=== PATIENT | female | born 1985 | race Caucasian/White ===

== ENCOUNTER → 2020-09-21 21:50 | Outpatient (CLI) | payer MEDICAID, SELFPAY | PROVIDERS: Visit Provider Emergency Medicine | DX: Z20.822 Contact with and (suspected) exposure to COVID-19 (principal); R05 Cough | CPT/HCPCS: U0003 ==

== ENCOUNTER 2021-02-25 03:04 | Inpatient (IN) | payer MEDICAID, SELFPAY ==
[2021-02-25] VITALS (16 sets, daily range): BP systolic 85–148; BP diastolic 41–98; PULSE 53–117; RESP 16–20; TEMP 36.6–37.6; O2SAT 95–99; BMI 25.6; BMI 25.7
--- NOTE | 2021-02-25 02:53 | ECG_ITS ---
APPROVED REPORT Exam: Resting ECG HR:112 bpm ECG Measurements Heart Rate 112 AXES NH 112 P QRSd 76 QRS 60 QT 472 T 58 QTc 644 Conclusion Sinus tachycardia Nonspecific ST and T wave abnormality Abnormal ECG Electronically signed by : David Petersen MD 02/25/2021 17:34:52
--- NOTE | 2021-02-25 04:24 | HMH.EDNVD ---
ED Disposition Clinical Impression: Elevated liver enzymes, Hypokalemia Abdominal pain Qualifiers: Abdominal location: epigastric Qualified Code(s): R10.13 - Epigastric pain Pancreatitis Qualifiers: Chronicity: acute Pancreatitis type: unspecified pancreatitis type Acute pancreatitis complication: no infection or necrosis Qualified Code(s): K85.90 - Acute pancreatitis without necrosis or infection, unspecified Disposition: Admitted as Observation Condition on Discharge: Good Instructions: DI for Diarrhea and Traveler's Diarrhea -- Adult, DI for Diarrhea and Traveler's Diarrhea -- Child, DI for Nausea -- Adult, DI for Nausea -- Child Referrals: Provider,Referral, [Primary Care Provider] - - Critical Care Critical Care Time: No Attestation: On 02/25/21, the high probability of a clinically significant, sudden or life threatening deterioration of the following system(s) required my full and direct attention, intervention and personal management. The time I documented below is in addition to time spent performing reported procedures but includes the following listed in this critical care notation. Medical Decision Making - Medical Records Medical records reviewed: Yes: I reviewed the patient's medical records. - Jonny Inquiry Pt receiving controlled substance: No Vital Signs: 02/25/21 02:56 02/25/21 03:06 02/25/21 03:30 Temperature 98.4 F Temperature Source Oral Pulse Rate 109 H 53 L Pulse Rate [Left] 117 H Respiratory Rate 16 Blood Pressure 125/77 Blood Pressure [Right Arm] 141/98 H Blood Pressure Mean Blood Pressure Mean [Right Arm] 112 Blood Pressure Source [Right Arm] Automatic Cuff 02 Sat by Pulse Oximetry 99 95 96 Oxygen Delivery Method Room Air 02/25/21 04:00 02/25/21 04:15 02/25/21 04:30 Temperature Temperature Source Pulse Rate 96 H 100 H Pulse Rate [Left] Respiratory Rate Blood Pressure 119/81 124/83 Blood Pressure [Right Arm] Blood Pressure Mean 93 91 Blood Pressure Mean [Right Arm] Blood Pressure Source [Right Arm] 02 Sat by Pulse Oximetry 99 99 Oxygen Delivery Method - Lab Data Lab results reviewed: Yes: I reviewed the patient's lab results. Lab Results 02/25/21 03:02: WBC 8.6, RBC 4.68, Hgb 17.2 H, Hct 51.6 H, MCV 110.1 H, MCH 36.8 H, MCHC 33.4, RDW 16.4, Plt Count 345, MPV 8.3, Neut % (Auto) 64.8, Lymph % (Auto) 25.8, [place] % (Auto) 7.9, Eos % (Auto) 0.1, Baso % (Auto) 1.3, Neut # (Auto) 5.6, Lymph # (Auto) 2.2, [place] # (Auto) 0.7, Eos # (Auto) 0.0, Baso # (Auto) 0.1 02/25/21 03:02: Sodium 132 L, Potassium 2.7 L*, Chloride 75 L, Carbon Dioxide 35 H, Anion Gap 24.7 H, BUN 16, Creatinine 0.90, Estimated Creat Clear 88, Estimated GFR 72, Est GFR ( Amer) 87, Glucose 163 H, Calcium 9.8, Total Bilirubin 2.4 H, AST 266 H, ALT 119 H, Alkaline Phosphatase 174 H, Total Protein 8.4 H, Albumin 4.7, Globulin 3.7 H, Albumin/Globulin Ratio 1.3, Amylase 124 H, Lipase 617 H 02/25/21 03:35: ESR 19 02/25/21 03:35: C-Reactive Protein 1.6, Procalcitonin 0.205 02/25/21 04:40: Urine Color Dk yellow, Urine Appearance Clear, Urine pH 6.0, Ur Specific [place] >= 1.030, Urine Protein 2+, Urine Glucose (UA) Negative, Urine Ketones Trace, Urine Blood Negative, Urine Nitrate Positive, Urine Bilirubin Negative, Urine Urobilinogen 4.0, Ur Leukocyte Esterase Negative, Urine RBC 3-5, Urine WBC 3-5, Urine Bacteria 3+, Urine Mucus 2+ 02/25/21 05:00: SARS-CoV-2 (PCR) Not detected, Influenza A Untype (PCR) Not detected, Influenza Type B (PCR) Not detected Result diagrams: 02/25/21 03:02 02/25/21 03:02 Orders (Tests/Meds): ED MEDICATIONS Generic Name Dose Route Start Last Admin Trade Name Freq PRN Reason Stop Dose Admin Sodium Chloride 1,000 mls @ 999 mls/hr 02/25/21 03:30 02/25/21 03:27 Sod Chlor 0.9% 1000ml Bag IV 02/25/21 04:30 999 mls/hr .Q1H1M LANDON Administration Sodium Chloride 1,000 mls @ 999 mls/hr 02/25/21 05:30 02/25/21 05:28
[2021-02-25 04:27] LABS: Albumin Level 4.7 g/dl (3.5-5.0); Albumin/Globulin Ratio 1.3 (1.1-1.8); Alkaline Phosphatase 174 U/L (38-126); Amylase 124 U/L (30-110); Anion Gap 24.7 mEq/L (5-15); Aspartate Amino Transferase 266 U/L (14-36); Bilirubin,Total 2.4 mg/dl (0.2-1.3); Blood Urea Nitrogen 16 mg/dl (7-17); Calcium 9.8 mg/dl (8.4-10.2); Carbon Dioxide 35 mmol/L (22.0-30.0); Creatinine Clearance Estimated 88 mL/min (50-200); Estimated Glomerular Filt Rate 72 ml/min (>60); GFR (African American) 87 ML/MIN (>60); Globulin 3.7 g/dL (1.3-3.2); Glucose 163 mg/dl (74-100); Sodium 132 mmol/L (136-145); Total Protein,Serum 8.4 g/dl (6.3-8.2)
[2021-02-25 04:28] LABS: Alanine Aminotransferase 119 U/L (12-78)
[2021-02-25 04:30] LABS: Lipase 617 U/L (23-300); Potassium 2.7 mmoL/L (3.5-5.1)
[2021-02-25 04:31] LABS: Chloride 75 mmol/L (98-107)
[2021-02-25 04:32] LABS: Basophils # 0.1 K/mm3 (0-0.2); Basophils % 1.3 % (0.1-2.0); Eosinophils % 0.1 % (0.1-12.0); Hematocrit 51.6 % (37.0-47.0); Hemoglobin 17.2 g/dL (12.2-16.2); Lymphocytes # 2.2 K/mm3 (0.7-4.5); Lymphocytes % 25.8 % (10-50); Mean Corpuscular HGB Conc 33.4 g/dL (31.8-35.4); Mean Corpuscular Hemoglobin 36.8 pg (27.0-31.2); Mean Corpuscular Volume 110.1 fl (81-99); Mean Platelet Volume 8.3 fl (7.4-10.4); Monocytes # 0.7 K/mm3 (0.1-1.0); Monocytes % 7.9 % (1.7-9.3); Neutrophils # 5.6 K/mm3 (1.8-7.8); Neutrophils % 64.8 % (37.0-80.0); Platelet Count 345 K/mm3 (142-424); Red Blood Count 4.68 M/mm3 (4.20-5.40); Red Cell Distribution Width 16.4 % (11.5-17.5); White Blood Count 8.6 K/mm3 (4.8-10.8)
--- NOTE | 2021-02-25 04:34 | PC.NURSE ---
Dr. Mohr notified of critical Potassium, Chloride, and Lipase.
--- NOTE | 2021-02-25 04:35 | CT_ITS ---
PROCEDURE INFORMATION: Exam: CT Abdomen And Pelvis With Contrast Exam date and time: 02/25/2021 4:35 AM Age: 35 years old Clinical indication: Nausea and vomiting; Abdominal pain; Prior surgery; Surgery type: Tubal; Patient HX: Generalized abd pain with n/v TECHNIQUE: Imaging protocol: Computed tomography of the abdomen and pelvis with contrast. Radiation optimization: All CT scans at this facility use at least one of these dose optimization techniques: automated exposure control; mA and/or kV adjustment per patient size (includes targeted exams where dose is matched to clinical indication); or iterative reconstruction. Contrast material: ISOVUE; Contrast volume: 75 ml; Contrast route: IV; COMPARISON: No relevant prior studies available. FINDINGS: Liver: Fatty infiltration. Gallbladder and bile ducts: Gallbladder distention. No significant ductal dilation. Pancreas: Unremarkable. No ductal dilation. Spleen: No splenomegaly. Adrenal glands: No mass. Kidneys and ureters: Unremarkable. No significant hydronephrosis. Stomach and bowel: No definite mural thickening. No obstruction. Appendix: Normal caliber. No inflammation. Intraperitoneal space: No significant fluid collection. No definite free air. Vasculature: Unremarkable. No aneurysm. Lymph nodes: No pathologically enlarged lymph nodes. Urinary bladder: Borderline bladder wall thickening, up to 4-5 mm. Incomplete distention, limiting evaluation. Reproductive: RIGHT tubal ligation clip. Displaced LEFT tubal ligation clip. Probable 1.4 cm RIGHT ovarian follicle. Bones/joints: Healing RIGHT rib fracture. Soft tissues: Unremarkable. IMPRESSION: 1. Cystitis vs underdistention. Correlate with urinalysis. 2. Gallbladder distention. Consider ultrasound.
[2021-02-25 04:51] LABS: C-Reactive Protein 1.6 mg/L (0-4)
[2021-02-25 04:52] LABS: Microscopic, Urine URINE MICROSCOPIC (MICROSCOPIC)
[2021-02-25 05:01] LABS: Erythrocyte Sedimentation Rate 19 mm/hr (0-20)
[2021-02-25 05:04] LABS: Appearance,Urine CLEAR (Clear); Blood, Urine Negative (Negative); Color,Urine DK YELLOW (Yellow); Glucose,Urine (UA) Negative (Negative); Ketones,Urine TRACE (Negative); Leukocyte Esterase,Urine Negative (Negative); Nitrate,Urine POSITIVE (Negative); Protein,Urine 2+ (Negative); Specific Gravity, Urine >= 1.030 (1.005-1.030)
[2021-02-25 05:05] LABS: Procalcitonin 0.205 ng/mL (0.0-2.0)
[2021-02-25 05:11] LABS: Bilirubin,Urine Negative (Negative)
[2021-02-25 05:15] LABS: Coronavirus 19, PCR Not Detected (NotDetected); Influenza A, PCR Not Detected (NotDetected); Influenza B, PCR Not Detected (NotDetected)
[2021-02-25 05:19] LABS: Bacteria,Urine 3+ /lpf; Mucus,Urine 2+ /lpf
--- NOTE | 2021-02-25 06:53 | XR_ITS ---
PROCEDURE INFORMATION: Exam: XR Chest Exam date and time: 02/25/2021 6:53 AM Age: 35 years old Clinical indication: Cough; Additional info: Baseline TECHNIQUE: Imaging protocol: XR of the chest. Views: 2 views. COMPARISON: CT ABDOMEN PELVIS W CON 02/25/2021 4:48 AM FINDINGS: Lungs: Unremarkable. No consolidation. Pleural spaces: Unremarkable. No pleural effusion. No pneumothorax. Heart/Mediastinum: Unremarkable. No cardiomegaly. Bones/joints: Unremarkable. IMPRESSION: No acute findings.
[2021-02-25 07:26] LABS: Lactic Acid 3.7 mmol/L (0.7-2.1)
--- NOTE | 2021-02-25 08:06 | HMH.PHAVTE ---
[facility] Pharmacy VTE Monitoring - Patient Demographics Admission date: 02/25/21 Report Date: 02/25/21 Time: 08:06 Allergies/Adverse Reactions: Patient Allergies BEE VENOM Allergy (Unknown, Uncoded 05/22/17 15:28) Height: 1.57 m Weight: 63.503 kg Patient Problems: Current Active Problems Abdominal pain (Acute) Elevated liver enzymes (Acute) Pancreatitis (Acute) Hypokalemia (Acute) - VTE Risk Labs: VTE Related Lab Results Hgb 17.2 g/dL (12.2-16.2) H 02/25/21 03:02 Hct 51.6 % (37.0-47.0) H 02/25/21 03:02 Plt Count 345 K/mm3 (142-424) 02/25/21 03:02 BUN 16 mg/dl (7-17) 02/25/21 03:02 Creatinine 0.90 mg/dl (0.52-1.04) 02/25/21 03:02 Estimated Creat Clear 88 mL/min (50-200) 02/25/21 03:02 Clinical Trial Participant: No - Prophylaxis VTE Prophylaxis Ordered?: Yes Types of VTE Prophylaxis: TEDS Knee High
--- NOTE | 2021-02-25 08:07 | PC.NURSE ---
Called pt report to chantel on med/surg
--- NOTE | 2021-02-25 09:08 | PC.NURSE ---
pt to ultrasound per wheelchair
--- NOTE | 2021-02-25 09:12 | HMH.HP ---
*Admission Date: 02/25/21 *Chief complaint: Nausea, Vomiting Diarrhea *History of present illness: 35-year-old female patient presented to the [facility] emergency department with complaints of off and on right upper quadrant/epigastric pain for 2 weeks and increasing pain in the last 3 days to intolerable with increased nausea/vomiting/diarrhea. She rates her pain at 8 out of 10 and reports that it is stabbing and twisting. She reports pain will occur both before and after meals and reports sometimes she will walk for 20 minutes and pain will subside. Patient reports she is unable to keep anything down neither solids nor liquids. She reports she does have a primary care provider in [facility] and has not had an appointment herself in several years. General surgery consulted White blood cell count is normal, hemoglobin hematocrit stable Potassium 2.7 and will be replaced, amylase 124 and lipase 617 Urinalysis reveals bacteria 3+, protein 2+, and leukocytes negative Urine culture and blood cultures x2 pending 02/25/21 Abd/Pelvic CT: FINDINGS: Liver: Fatty infiltration. Gallbladder and bile ducts: Gallbladder distention. No significant ductal dilation. Pancreas: Unremarkable. No ductal dilation. Spleen: No splenomegaly. Adrenal glands: No mass. Kidneys and ureters: Unremarkable. No significant hydronephrosis. Stomach and bowel: No definite mural thickening. No obstruction. Appendix: Normal caliber. No inflammation. Intraperitoneal space: No significant fluid collection. No definite free air. Vasculature: Unremarkable. No aneurysm. Lymph nodes: No pathologically enlarged lymph nodes. Urinary bladder: Borderline bladder wall thickening, up to 4-5 mm. Incomplete distention, limiting evaluation. Reproductive: RIGHT tubal ligation clip. Displaced LEFT tubal ligation clip. Probable 1.4 cm RIGHT ovarian follicle. Bones/joints: Healing RIGHT rib fracture. Soft tissues: Unremarkable. IMPRESSION: 1. Cystitis vs underdistention. Correlate with urinalysis. 2. Gallbladder distention. Consider ultrasound. Electronically signed by Khris Finnegan MD 02/25/21 CXR: IMPRESSION: No acute findings. Electronically signed by Anthony Maldonado MD [facility] History I have reviewed the patient's past medical history: Yes *Have you ever received a pneumonia vaccine?: No *Have you received a flu vaccine this season?: No - *Social History Last grade of school completed: High school graduate Smoking Status: Current every day smoker Alcohol Intake: current Alcohol Intake Frequency:: a few times a month Substance Use Type: denies use *Occupational Status:: unemployed *Travel in the last 8 weeks: None Family Hx:: Unable to obtain Review of Systems - Review of Systems Review of systems:: pertinent systems reviewed and negative unless documented below - Constitutional Reports fatigue, Reports lack of energy - Eyes Denies change in vision, Denies double vision - ENT Denies abnormal hearing, Denies dizziness - *Cardiovascular Denies chest pain, Denies shortness of breath - *Respiratory Denies chest congestion, Denies cough - *Gastrointestinal Reports abdominal pain, Reports change in bowel habits, Reports change in stools, Reports loose stools, Reports nausea, Reports vomiting, Denies bright, red blood in stools, Denies black, tarry stools - *Musculoskeletal Denies joint pain, Denies muscle weakness - Integumentary/Breasts Denies bleeding lesions, Denies yellowing of the skin - *Neurologic Denies localized weakness, Denies loss of vision, Denies seizure-like activity - Psychiatric Denies lack of enjoyment, Denies difficulty concentrating - Endocrine Denies cold intolerance, Denies excessive sweating - Hematologic/Lymphatic Denies easy bleeding - Allergic/Immunologic Denies GI upset with certain foods, Denies tongue swelling Meds Home Medications Medica
--- NOTE | 2021-02-25 10:46 | PC.NURSE ---
Contacted pre-op to let Dr Madera know about the consult on this pt.
[2021-02-25 11:11] LABS: Reflex Lactic Add Lactic Reflex
[2021-02-25 12:18] LABS: Lactic Acid Follow Up (RFLX 1) 2.2 mmol/L (0.7-2.1)
[2021-02-25 13:58] LABS: Reflex Lactic (2 hrs) Add Lactic Reflex
--- NOTE | 2021-02-25 16:03 | PC.NURSE ---
Report given on pt to CEDRIC Nur. Called and spoke with Dr. Abebe earlier this shift in RE to pt needing an Antibiotic, he ordered invanz. He also ordered a 500 cc bolus in RE to hypotension. Pt's BP did improve and was 90/50 manually. Gen surgery has been notified of consult.
--- NOTE | 2021-02-25 16:30 | PC.NURSE ---
Dr. Madera here to see pt
--- NOTE | 2021-02-25 17:22 | HMH.GSCON ---
*Admission Date: 02/25/21 *Reason for consult:: Gallbladder distention *History of present illness: This is a 35-year-old female seen in consultation from the service of Drs. Mohr and Mis for evaluation of possible gallbladder disease. Although her history seems varied as reported to different providers, she currently states that she has had fairly severe nausea and vomiting for about 2 months. She has also had fairly severe abdominal pain and what she also describes as tingling and numbness of the abdominal wall. She seemingly gets nauseous with any food or liquid but does not have any increased pain with food intake. She states that her pain is pretty much there all the time . No jaundice. Fevers are questionable. Forwarded from admission H&P: 35-year-old female patient presented to the [facility] emergency department with complaints of off and on right upper quadrant/epigastric pain for 2 weeks and increasing pain in the last 3 days to intolerable with increased nausea/vomiting/diarrhea. She rates her pain at 8 out of 10 and reports that it is stabbing and twisting. She reports pain will occur both before and after meals and reports sometimes she will walk for 20 minutes and pain will subside. Patient reports she is unable to keep anything down neither solids nor liquids. She reports she does have a primary care provider in [facility] and has not had an appointment herself in several years. General surgery consulted Review of Systems - Constitutional Denies body ache(s) - Eyes Denies change in vision - ENT Denies difficulty swallowing - *Cardiovascular Reports chest pain - *Respiratory Denies cough - *Gastrointestinal Reports abdominal pain, Reports nausea, Reports vomiting - *Genitourinary Denies blood in urine - *Musculoskeletal Reports numbness, Reports tingling Comments: She describes tingling/numbness of the abdominal wall - *Neurologic Denies abnormal hearing, Denies dizziness, Denies localized weakness, Denies loss of vision, Denies seizure-like activity - Psychiatric Reports anxiety - Hematologic/Lymphatic Denies easy bleeding [facility] History Medical History: Denies:: Diabetes Mellitus Type 1, Diabetes Mellitus Type 2 *Have you ever received a pneumonia vaccine?: No *Have you received a flu vaccine this season?: No - *Social History Last grade of school completed: High school graduate Smoking Status: Current every day smoker Alcohol Intake: current Alcohol Intake Frequency:: a few times a month Substance Use Type: denies use *Occupational Status:: unemployed *Travel in the last 8 weeks: None Family Hx:: Unable to obtain Meds Home Medications Medication Instructions Recorded Confirmed Type No Known Home Medications 02/25/21 02/25/21 History Allergies Allergy/AdvReac Type Severity Reaction Status Date / Time BEE VENOM Allergy Unknown Uncoded 05/22/17 15:28 Exam Vital signs and Labs for Last 24 Hours: Temp Pulse Resp BP Pulse Ox 98.6 F 85 18 112/57 L 96 02/25/21 16:00 02/25/21 16:00 02/25/21 16:00 02/25/21 16:00 02/25/21 16:00 Laboratory Results - last 24 hr 02/25/21 03:02: WBC 8.6, RBC 4.68, Hgb 17.2 H, Hct 51.6 H, MCV 110.1 H, MCH 36.8 H, MCHC 33.4, RDW 16.4, Plt Count 345, MPV 8.3, Neut % (Auto) 64.8, Lymph % (Auto) 25.8, [place] % (Auto) 7.9, Eos % (Auto) 0.1, Baso % (Auto) 1.3, Neut # (Auto) 5.6, Lymph # (Auto) 2.2, [place] # (Auto) 0.7, Eos # (Auto) 0.0, Baso # (Auto) 0.1 02/25/21 03:02: Sodium 132 L, Potassium 2.7 L*, Chloride 75 L, Carbon Dioxide 35 H, Anion Gap 24.7 H, BUN 16, Creatinine 0.90, Estimated Creat Clear 88, Estimated GFR 72, Est GFR ( Amer) 87, Glucose 163 H, Calcium 9.8, Total Bilirubin 2.4 H, AST 266 H, ALT 119 H, Alkaline Phosphatase 174 H, Total Protein 8.4 H, Albumin 4.7, Globulin 3.7 H, Albumin/Globulin Ratio 1.3, Amylase 124 H, Lipase 617 H 02/25/21 03:35: ESR 19 02/25/21 03:35: C-Reactive Protei
--- NOTE | 2021-02-25 18:00 | PC.NURSE ---
Phone order received from Dr. Madera for Protonix 40mg IV Bid. R/V and faxed.
[2021-02-25 18:21] LABS: Potassium 3.2 mmoL/L (3.5-5.1)
--- NOTE | 2021-02-26 03:48 | PC.NURSE ---
Patient is A&Ox4. Patient bowel sounds are active in all quadrants. Patient states that she had a small BM earlier today (02/25). Abdomen is soft, flat and tender upon palpation. IV is patent. No acute changes noted and patient has rested well. VSS, call light within reach, will continue to monitor.
[2021-02-26 04:00] VITALS: BP 99/64; PULSE 75; RESP 18; TEMP 36.9; O2SAT 94
[2021-02-26 08:00] VITALS: BP 134/84; PULSE 71; RESP 18; TEMP 36.8; O2SAT 98
[2021-02-26 08:17] LABS: Basophils % 0.5 % (0.1-2.0); Eosinophils % 0.9 % (0.1-12.0); Hematocrit 33.9 % (37.0-47.0); Hemoglobin 11.1 g/dL (12.2-16.2); Lymphocytes # 1.2 K/mm3 (0.7-4.5); Lymphocytes % 41.1 % (10-50); Mean Corpuscular HGB Conc 32.9 g/dL (31.8-35.4); Mean Corpuscular Hemoglobin 36.4 pg (27.0-31.2); Mean Corpuscular Volume 110.6 fl (81-99); Mean Platelet Volume 7.8 fl (7.4-10.4); Monocytes # 0.3 K/mm3 (0.1-1.0); Monocytes % 8.8 % (1.7-9.3); Neutrophils # 1.4 K/mm3 (1.8-7.8); Neutrophils % 48.7 % (37.0-80.0); Platelet Count 152 K/mm3 (142-424); Red Blood Count 3.06 M/mm3 (4.20-5.40); Red Cell Distribution Width 16.3 % (11.5-17.5); White Blood Count 2.9 K/mm3 (4.8-10.8)
[2021-02-26 08:25] LABS: Alanine Aminotransferase 70 U/L (12-78); Albumin Level 2.8 g/dl (3.5-5.0); Alkaline Phosphatase 94 U/L (38-126); Amylase 104 U/L (30-110); Anion Gap 9.3 mEq/L (5-15); Aspartate Amino Transferase 182 U/L (14-36); Bilirubin,Total 2.3 mg/dl (0.2-1.3); Blood Urea Nitrogen 9 mg/dl (7-17); Carbon Dioxide 30 mmol/L (22.0-30.0); Chloride 101 mmol/L (98-107); Chol/HDL Ratio 3.5 (1-3.5); Cholesterol 120 mg/dl (140-200); Creatinine Clearance Estimated 99 mL/min (50-200); Estimated Glomerular Filt Rate 82 ml/min (>60); GFR (African American) 99 ML/MIN (>60); Globulin 2.7 g/dL (1.3-3.2); Glucose 111 mg/dl (74-100); HDL Cholesterol 34 mg/dl (40-60); Potassium 3.3 mmoL/L (3.5-5.1); Sodium 137 mmol/L (136-145); Total Protein,Serum 5.5 g/dl (6.3-8.2); Triglycerides 73 mg/dl (30-150); VLDL Cholesterol 15 mg/dL (0-40)
[2021-02-26 08:26] LABS: Lipase 958 U/L (23-300)
[2021-02-26 08:36] LABS: Direct LDL Cholesterol 69.86 mg/dL (100-129)
[2021-02-26 09:19] LABS: Hep A Ab, IgM Negative (Negative); Hepatitis B Core Antibody IgM Negative (Negative); Hepatitis B Surface Antigen Negative (Negative); Hepatitis C Antibody >11.0 s/co ratio (0.0-0.9)
--- NOTE | 2021-02-26 09:30 | HMH.ACPN2 ---
Internal Medicine - PN: Subj *Date: 02/26/21 *Time: 09:30 Interval history: looks better this am - hungry - still with nausea Exam Vital signs and Labs for Last 24 Hours: Temp Pulse Resp BP Pulse Ox 98.3 F 71 18 134/84 98 02/26/21 08:00 02/26/21 08:00 02/26/21 08:00 02/26/21 08:00 02/26/21 08:00 Laboratory Results - last 24 hr 02/25/21 03:00: Hepatitis A IgM Ab Negative, Hep Bs Antigen Negative, Hep B Core IgM Ab Negative, Hepatitis C Antibody >11.0 H 02/25/21 11:26: Lactate 2.2 H 02/25/21 14:25: Lactate 1.0 02/25/21 18:10: Potassium 3.2 L 02/26/21 07:52: WBC 2.9 L D, RBC 3.06 L D, Hgb 11.1 L, Hct 33.9 L, MCV 110.6 H, MCH 36.4 H, MCHC 32.9, RDW 16.3, Plt Count 152 D, MPV 7.8, Neut % (Auto) 48.7, Lymph % (Auto) 41.1, [place] % (Auto) 8.8, Eos % (Auto) 0.9, Baso % (Auto) 0.5, Neut # (Auto) 1.4 L, Lymph # (Auto) 1.2, [place] # (Auto) 0.3, Eos # (Auto) 0.0, Baso # (Auto) 0.0 02/26/21 07:52: Sodium 137, Potassium 3.3 L, Chloride 101, Carbon Dioxide 30, Anion Gap 9.3, BUN 9 D, Creatinine 0.80, Estimated Creat Clear 99, Estimated GFR 82, Est GFR ( Amer) 99, Glucose 111 H, Calcium 8.0 L, Total Bilirubin 2.3 H, AST 182 H D, ALT 70 D, Alkaline Phosphatase 94, Total Protein 5.5 L D, Albumin 2.8 L D, Globulin 2.7, Albumin/Globulin Ratio 1.0 L, Triglycerides 73, Cholesterol 120 L, LDL Cholesterol Direct 69.86 L, VLDL Cholesterol 15, HDL Cholesterol 34 L, Cholesterol/HDL Ratio 3.5, Amylase 104, Lipase 958 H I & O for Last 24 hours: Intake & Output 02/23/21 02/24/21 02/25/21 02/26/21 11:59 11:59 11:59 11:59 Intake Total 2487 / 2487 Balance 2487 / 2487 Weight 140 lb Microbiology Reports for the Last 24 Hours: Microbiology 02/25/21 04:40 Urine,Clean Catch Urine Culture - Preliminary - Constitutional no acute distress - *Routine HEENT Exam Head: Present: normocephalic Eye: Present: EOMI, PERRL. Absent: scleral injection ENT: Present: mucous membranes dry - *Routine Neck Exam Absent: JVD - *Routine Respiratory Exam Present: CTA bilaterally - *Routine Cardiovascular Exam Present: RRR - *Routine Abdominal Exam Present: soft - *Routine Extremities Exam Present: pulses intact - *Routine Skin Exam Present: intact - *Routine Neurological Exam Present: alert, oriented X3, CN II-XII intact Assessment and Plan (1) Abdominal pain Status: Acute Qualifiers: Abdominal location: epigastric Qualified Code(s): R10.13 - Epigastric pain Category: Medical Code(s): R10.9 - Unspecified abdominal pain (2) Elevated liver enzymes Status: Acute Category: Medical Code(s): R74.8 - Abnormal levels of other serum enzymes (3) Hypokalemia Status: Acute Category: Medical Code(s): E87.6 - Hypokalemia (4) Proteinuria Status: Acute Category: Medical Code(s): R80.9 - Proteinuria, unspecified (5) Pancreatitis Status: Acute Qualifiers: Chronicity: acute Pancreatitis type: unspecified pancreatitis type Acute pancreatitis complication: no infection or necrosis Qualified Code(s): K85.90 - Acute pancreatitis without necrosis or infection, unspecified Category: Medical Code(s): K85.90 - Acute pancreatitis without necrosis or infection, unspecified (6) Nausea and vomiting Status: Acute Category: Medical Code(s): R11.2 - Nausea with vomiting, unspecified (7) Hepatitis C Status: Acute Qualifiers: Viral hepatitis chronicity: unspecified Hepatic coma status: without hepatic coma Qualified Code(s): B19.20 - Unspecified viral hepatitis C without hepatic coma Category: Medical Code(s): B19.20 - Unspecified viral hepatitis C without hepatic coma
--- NOTE | 2021-02-26 09:44 | P.PN_ITS ---
Subjective Narrative: She states that she feels a little better overall . She is asking for something to eat and drink . Although she states that she still has some nausea, she believes that she tolerated liquids okay yesterday for the most part . Progress Note: A&P (1) Abdominal pain Status: Acute (2) Elevated liver enzymes Status: Acute (3) Hypokalemia Status: Acute (4) Proteinuria Status: Acute (5) Pancreatitis Status: Acute (6) Nausea and vomiting Status: Acute (7) Hepatitis C Status: Acute Assessment and Plan for All Diagnoses:: Overall, she has shown some improvement. Her symptomatology is likely at least to some degree multifactorial. She may ultimately require cholecystectomy; however, this does not appear to be an urgent requirement. Gastroenterology evaluation prior to ongoing discussion with regard to surgical intervention is likely beneficial. Low-fat diet ordered Serial abdominal exams Close ongoing follow-up Exam Vital signs and Labs for Last 24 Hours: Temp Pulse Resp BP Pulse Ox 98.3 F 71 18 134/84 98 02/26/21 08:00 02/26/21 08:00 02/26/21 08:00 02/26/21 08:00 02/26/21 08:00 Laboratory Results - last 24 hr 02/25/21 03:00: Hepatitis A IgM Ab Negative, Hep Bs Antigen Negative, Hep B Core IgM Ab Negative, Hepatitis C Antibody >11.0 H 02/25/21 11:26: Lactate 2.2 H 02/25/21 14:25: Lactate 1.0 02/25/21 18:10: Potassium 3.2 L 02/26/21 07:52: WBC 2.9 L D, RBC 3.06 L D, Hgb 11.1 L, Hct 33.9 L, MCV 110.6 H, MCH 36.4 H, MCHC 32.9, RDW 16.3, Plt Count 152 D, MPV 7.8, Neut % (Auto) 48.7, Lymph % (Auto) 41.1, [place] % (Auto) 8.8, Eos % (Auto) 0.9, Baso % (Auto) 0.5, Neut # (Auto) 1.4 L, Lymph # (Auto) 1.2, [place] # (Auto) 0.3, Eos # (Auto) 0.0, Baso # (Auto) 0.0 02/26/21 07:52: Sodium 137, Potassium 3.3 L, Chloride 101, Carbon Dioxide 30, Anion Gap 9.3, BUN 9 D, Creatinine 0.80, Estimated Creat Clear 99, Estimated GFR 82, Est GFR ( Amer) 99, Glucose 111 H, Calcium 8.0 L, Total Bilirubin 2.3 H, AST 182 H D, ALT 70 D, Alkaline Phosphatase 94, Total Protein 5.5 L D, Albumin 2.8 L D, Globulin 2.7, Albumin/Globulin Ratio 1.0 L, Triglycerides 73, Cholesterol 120 L, LDL Cholesterol Direct 69.86 L, VLDL Cholesterol 15, HDL Cholesterol 34 L, Cholesterol/HDL Ratio 3.5, Amylase 104, Lipase 958 H I & O for Last 24 hours: Intake & Output 02/23/21 02/24/21 02/25/21 02/26/21 11:59 11:59 11:59 11:59 Intake Total 2487 / 2487 Balance 2487 / 2487 Weight 140 lb Microbiology Reports for the Last 24 Hours: Microbiology 02/25/21 04:40 Urine,Clean Catch Urine Culture - Preliminary - Constitutional no acute distress - *Routine Respiratory Exam Absent: respiratory distress - *Routine Cardiovascular Exam Present: RRR - *Routine Abdominal Exam Present: tenderness
[2021-02-26 15:41] VITALS: BP 116/73; PULSE 74; RESP 14; TEMP 37.3; O2SAT 95
[2021-02-26 19:55] VITALS: BP 104/73; PULSE 69; RESP 16; TEMP 36.7; O2SAT 100
--- NOTE | 2021-02-26 20:16 | PC.NURSE ---
Pt did state this am she had episode of emesis. Meds per mar. No acute changes this evening. VSS. CB in reach
--- NOTE | 2021-02-27 02:36 | PC.NURSE ---
Patient is A&Ox4. Patient has rested well this shift. Patient's bowel sounds are active in all quadrants. Abdomen is soft, flat and tender upon palpation of the upper quadrants. VSS, call light within reach, will continue to monitor.
[2021-02-27 05:04] VITALS: BP 110/64; PULSE 64; RESP 16; TEMP 36.6; O2SAT 96
[2021-02-27 07:57] LABS: Amylase 79 U/L (30-110); Lipase 516 U/L (23-300)
[2021-02-27 08:00] VITALS: BP 95/57; PULSE 69; RESP 14; TEMP 36.9; O2SAT 98; O2SAT 99
--- NOTE | 2021-02-27 09:39 | HMH.ACPN2 ---
Internal Medicine - PN: Subj *Date: 02/28/21 *Time: 06:44 Interval history: not feeling well - has abd pain with nausea - lipase improved - gram neg rods in urine Exam Vital signs and Labs for Last 24 Hours: Temp Pulse Resp BP Pulse Ox 98 F 64 16 110/64 96 02/27/21 05:04 02/27/21 05:04 02/27/21 05:04 02/27/21 05:04 02/27/21 05:04 Laboratory Results - last 24 hr 02/25/21 04:40: Urine Color Dk yellow, Urine Appearance Clear, Urine pH 6.0, Ur Specific [place] >= 1.030, Urine Protein 2+, Urine Glucose (UA) Negative, Urine Ketones Trace, Urine Blood Negative, Urine Nitrate Positive, Urine Bilirubin Negative, Urine Urobilinogen 4.0, Ur Leukocyte Esterase Negative, Urine RBC 3-5, Urine WBC 3-5, Urine Bacteria 3+, Urine Mucus 2+ 02/27/21 07:25: Amylase 79 D, Lipase 516 H I & O for Last 24 hours: Intake & Output 02/24/21 02/25/21 02/26/21 02/27/21 11:59 11:59 11:59 11:59 Intake Total 2487 / 2487 470 / 470 Balance 2487 / 2487 470 / 470 Weight 140 lb Microbiology Reports for the Last 24 Hours: Microbiology 02/25/21 04:40 Urine,Clean Catch Urine Culture - Preliminary Gram Negative Rods Gram Negative Rods#2 02/25/21 06:52 Blood Blood Culture - Preliminary NO GROWTH AFTER 48 HOURS 02/25/21 06:52 Blood Blood Culture - Preliminary NO GROWTH AFTER 48 HOURS - Constitutional no acute distress - *Routine HEENT Exam Head: Present: normocephalic Eye: Present: EOMI, PERRL ENT: Present: mucous membranes dry - *Routine Neck Exam Present: supple. Absent: JVD - *Routine Respiratory Exam Present: decreased breath sounds - *Routine Cardiovascular Exam Present: RRR - *Routine Abdominal Exam Present: soft, tenderness - *Routine Extremities Exam Absent: calf tenderness - *Routine Skin Exam Present: intact - *Routine Neurological Exam Present: alert, CN II-XII intact - Routine Psychiatric Exam Present: cooperative Assessment and Plan (1) Abdominal pain Status: Acute Qualifiers: Abdominal location: epigastric Qualified Code(s): R10.13 - Epigastric pain Category: Medical Code(s): R10.9 - Unspecified abdominal pain (2) Elevated liver enzymes Status: Acute Category: Medical Code(s): R74.8 - Abnormal levels of other serum enzymes (3) Hypokalemia Status: Acute Category: Medical Code(s): E87.6 - Hypokalemia (4) Proteinuria Status: Acute Category: Medical Code(s): R80.9 - Proteinuria, unspecified (5) Pancreatitis Status: Acute Qualifiers: Chronicity: acute Pancreatitis type: unspecified pancreatitis type Acute pancreatitis complication: no infection or necrosis Qualified Code(s): K85.90 - Acute pancreatitis without necrosis or infection, unspecified Category: Medical Code(s): K85.90 - Acute pancreatitis without necrosis or infection, unspecified (6) Nausea and vomiting Status: Acute Category: Medical Code(s): R11.2 - Nausea with vomiting, unspecified (7) Hepatitis C Status: Acute Qualifiers: Viral hepatitis chronicity: unspecified Hepatic coma status: without hepatic coma Qualified Code(s): B19.20 - Unspecified viral hepatitis C without hepatic coma Category: Medical Code(s): B19.20 - Unspecified viral hepatitis C without hepatic coma
[2021-02-27 10:28] LABS: Basophils % 0.9 % (0.1-2.0); Eosinophils # 0.1 K/mm3 (0.0-0.4); Eosinophils % 1.1 % (0.1-12.0); Hematocrit 40.3 % (37.0-47.0); Hemoglobin 13.2 g/dL (12.2-16.2); Lymphocytes # 1.1 K/mm3 (0.7-4.5); Lymphocytes % 25.7 % (10-50); Mean Corpuscular HGB Conc 32.7 g/dL (31.8-35.4); Mean Corpuscular Hemoglobin 36.6 pg (27.0-31.2); Mean Corpuscular Volume 111.9 fl (81-99); Mean Platelet Volume 8.7 fl (7.4-10.4); Monocytes # 0.2 K/mm3 (0.1-1.0); Monocytes % 5.3 % (1.7-9.3); Neutrophils % 66.9 % (37.0-80.0); Platelet Count 197 K/mm3 (142-424); Red Cell Distribution Width 16.3 % (11.5-17.5); White Blood Count 4.4 K/mm3 (4.8-10.8)
[2021-02-27 10:38] LABS: Chloride 100 mmol/L (98-107); Sodium 137 mmol/L (136-145)
[2021-02-27 10:41] LABS: Alanine Aminotransferase 81 U/L (12-78); Albumin Level 3.4 g/dl (3.5-5.0); Albumin/Globulin Ratio 1.2 (1.1-1.8); Alkaline Phosphatase 102 U/L (38-126); Anion Gap 7.9 mEq/L (5-15); Aspartate Amino Transferase 196 U/L (14-36); Carbon Dioxide 32 mmol/L (22.0-30.0); Creatinine Clearance Estimated 132 mL/min (50-200); Estimated Glomerular Filt Rate 114 ml/min (>60); GFR (African American) 138 ML/MIN (>60); Globulin 2.9 g/dL (1.3-3.2); Total Protein,Serum 6.3 g/dl (6.3-8.2)
[2021-02-27 10:42] LABS: Calcium 8.2 mg/dl (8.4-10.2); Glucose 117 mg/dl (74-100)
[2021-02-27 10:52] LABS: Blood Urea Nitrogen < 2 mg/dl (7-17)
[2021-02-27 10:53] LABS: Potassium 2.9 mmoL/L (3.5-5.1)
--- NOTE | 2021-02-27 11:23 | HMH.GSPN ---
Subjective Narrative: She states that she feels about the same . Continues to have some nausea with intermittent emesis. Abdominal pain unchanged. Progress Note: A&P (1) Abdominal pain Status: Acute (2) Elevated liver enzymes Status: Acute (3) Hypokalemia Status: Acute (4) Proteinuria Status: Acute (5) Pancreatitis Status: Acute (6) Nausea and vomiting Status: Acute (7) Hepatitis C Status: Acute Assessment and Plan for All Diagnoses:: Although the patient's symptomatology is likely multifactorial, she does have some gallbladder distention noted radiographically. Her symptoms have not improved and she wishes to undergo cholecystectomy. She understands the risks and benefits of surgery. She understands the likelihood of her gallbladder only being a partial causative factor. She is being scheduled for laparoscopic cholecystectomy with possible cholangiogram and liver biopsy (scheduled for tomorrow morning). I have discussed the risks and benefits including, but not limited to: Bleeding Infection Damage to surrounding tissue Inherent risks of sedation The patient agrees to proceed. Exam Vital signs and Labs for Last 24 Hours: Temp Pulse Resp BP Pulse Ox 98.4 F 69 14 95/57 L 99 02/27/21 08:00 02/27/21 08:00 02/27/21 08:00 02/27/21 08:00 02/27/21 08:00 Laboratory Results - last 24 hr 02/25/21 04:40: Urine Color Dk yellow, Urine Appearance Clear, Urine pH 6.0, Ur Specific [place] >= 1.030, Urine Protein 2+, Urine Glucose (UA) Negative, Urine Ketones Trace, Urine Blood Negative, Urine Nitrate Positive, Urine Bilirubin Negative, Urine Urobilinogen 4.0, Ur Leukocyte Esterase Negative, Urine RBC 3-5, Urine WBC 3-5, Urine Bacteria 3+, Urine Mucus 2+ 02/27/21 07:25: Amylase 79 D, Lipase 516 H 02/27/21 10:00: WBC 4.4 L D, RBC 3.60 L, Hgb 13.2, Hct 40.3, MCV 111.9 H, MCH 36.6 H, MCHC 32.7, RDW 16.3, Plt Count 197 D, MPV 8.7, Neut % (Auto) 66.9, Lymph % (Auto) 25.7, Story % (Auto) 5.3, Eos % (Auto) 1.1, Baso % (Auto) 0.9, Neut # (Auto) 3.0, Lymph # (Auto) 1.1, Story # (Auto) 0.2, Eos # (Auto) 0.1, Baso # (Auto) 0.0 02/27/21 10:00: Sodium 137, Potassium 2.9 L*, Chloride 100, Carbon Dioxide 32 H, Anion Gap 7.9, BUN < 2 L D, Creatinine 0.60 D, Estimated Creat Clear 132, Estimated GFR 114, Est GFR ( Amer) 138 D, Glucose 117 H, Calcium 8.2 L, Total Bilirubin 2.0 H, AST 196 H, ALT 81 H, Alkaline Phosphatase 102, Total Protein 6.3, Albumin 3.4 L D, Globulin 2.9, Albumin/Globulin Ratio 1.2 I & O for Last 24 hours: Intake & Output 02/24/21 02/25/21 02/26/21 02/27/21 11:59 11:59 11:59 11:59 Intake Total 2487 / 2487 470 / 470 Balance 2487 / 2487 470 / 470 Weight 140 lb Microbiology Reports for the Last 24 Hours: Microbiology 02/25/21 04:40 Urine,Clean Catch Urine Culture - Preliminary Gram Negative Rods Gram Negative Rods#2 02/25/21 06:52 Blood Blood Culture - Preliminary NO GROWTH AFTER 48 HOURS 02/25/21 06:52 Blood Blood Culture - Preliminary NO GROWTH AFTER 48 HOURS - Constitutional no acute distress - *Routine Respiratory Exam Absent: respiratory distress - *Routine Cardiovascular Exam Absent: tachycardia - *Routine Abdominal Exam Present: tenderness
[2021-02-27 16:00] VITALS: BP 108/74; PULSE 72; RESP 18; TEMP 36.7; O2SAT 98
[2021-02-27 18:11] VITALS: BMI 25.9
[2021-02-27 20:00] VITALS: BP 120/81; PULSE 66; RESP 16; TEMP 36.5; O2SAT 100
[2021-02-28] VITALS (25 sets, daily range): BP systolic 100–135; BP diastolic 44–89; PULSE 54–81; RESP 16–20; TEMP 36.2–36.9; O2SAT 94–100; BMI 26.4
--- NOTE | 2021-02-28 03:26 | PC.NURSE ---
Patient is alert and oriented x4. Her upper quadrant remains tender upon palpation. No episodes of nausea/vomiting/diarrhea have been voiced to this RN. Patient has rested well this shift. She has remained afebrile. VSS, call light within reach, will continue to monitor.
[2021-02-28 06:56] LABS: Alanine Aminotransferase 72 U/L (12-78); Alkaline Phosphatase 86 U/L (38-126); Anion Gap 7.7 mEq/L (5-15); Aspartate Amino Transferase 156 U/L (14-36); Bilirubin,Total 1.7 mg/dl (0.2-1.3); Carbon Dioxide 31 mmol/L (22.0-30.0); Chloride 103 mmol/L (98-107); Creatinine Clearance Estimated 136 mL/min (50-200); Estimated Glomerular Filt Rate 114 ml/min (>60); GFR (African American) 138 ML/MIN (>60); Globulin 2.9 g/dL (1.3-3.2); Glucose 109 mg/dl (74-100); Lipase 572 U/L (23-300); Potassium 3.7 mmoL/L (3.5-5.1); Sodium 138 mmol/L (136-145); Total Protein,Serum 5.9 g/dl (6.3-8.2)
[2021-02-28 07:00] LABS: Blood Urea Nitrogen < 2 mg/dl (7-17)
--- NOTE | 2021-02-28 07:11 | P.PN_ITS ---
Subjective Narrative: She states that she feels pretty much the same . Progress Note: A&P (1) Abdominal pain Status: Acute (2) Elevated liver enzymes Status: Acute (3) Hypokalemia Status: Acute (4) Proteinuria Status: Acute (5) Pancreatitis Status: Acute (6) Nausea and vomiting Status: Acute (7) Hepatitis C Status: Acute Assessment and Plan for All Diagnoses:: She is scheduled to undergo laparoscopic cholecystectomy with possible cholangiogram and liver biopsy this morning. She understands the risks and benefits of surgical intervention. She understands the likelihood of her symptoms being multifactorial, as well as, the likely need for ongoing evaluation and management. Exam Vital signs and Labs for Last 24 Hours: Temp Pulse Resp BP Pulse Ox 98.4 F 81 16 127/89 99 02/28/21 04:00 02/28/21 04:00 02/28/21 04:00 02/28/21 04:00 02/28/21 04:00 Laboratory Results - last 24 hr 02/25/21 04:40: Urine Color Dk yellow, Urine Appearance Clear, Urine pH 6.0, Ur Specific [place] >= 1.030, Urine Protein 2+, Urine Glucose (UA) Negative, Urine Ketones Trace, Urine Blood Negative, Urine Nitrate Positive, Urine Bilirubin Negative, Urine Urobilinogen 4.0, Ur Leukocyte Esterase Negative, Urine RBC 3-5, Urine WBC 3-5, Urine Bacteria 3+, Urine Mucus 2+ 02/27/21 07:25: Amylase 79 D, Lipase 516 H 02/27/21 10:00: WBC 4.4 L D, RBC 3.60 L, Hgb 13.2, Hct 40.3, MCV 111.9 H, MCH 36.6 H, MCHC 32.7, RDW 16.3, Plt Count 197 D, MPV 8.7, Neut % (Auto) 66.9, Lymph % (Auto) 25.7, [place] % (Auto) 5.3, Eos % (Auto) 1.1, Baso % (Auto) 0.9, Neut # (Auto) 3.0, Lymph # (Auto) 1.1, [place] # (Auto) 0.2, Eos # (Auto) 0.1, Baso # (Auto) 0.0 02/27/21 10:00: Sodium 137, Potassium 2.9 L*, Chloride 100, Carbon Dioxide 32 H, Anion Gap 7.9, BUN < 2 L D, Creatinine 0.60 D, Estimated Creat Clear 132, Estimated GFR 114, Est GFR ( Amer) 138 D, Glucose 117 H, Calcium 8.2 L, Total Bilirubin 2.0 H, AST 196 H, ALT 81 H, Alkaline Phosphatase 102, Total Protein 6.3, Albumin 3.4 L D, Globulin 2.9, Albumin/Globulin Ratio 1.2 02/28/21 06:18: Sodium 138, Potassium 3.7 D, Chloride 103, Carbon Dioxide 31 H, Anion Gap 7.7, BUN < 2 L, Creatinine 0.60, Estimated Creat Clear 136, Estimated GFR 114, Est GFR ( Amer) 138, Glucose 109 H, Calcium 8.0 L, Total Bilirubin 1.7 H, AST 156 H, ALT 72, Alkaline Phosphatase 86, Total Protein 5.9 L , Albumin 3.0 L D, Globulin 2.9, Albumin/Globulin Ratio 1.0 L, Lipase 572 H I & O for Last 24 hours: Intake & Output 02/25/21 02/26/21 02/27/21 02/28/21 11:59 11:59 11:59 11:59 Intake Total 2487 / 2487 470 / 470 390 / 390 Balance 2487 / 2487 470 / 470 390 / 390 Weight 140 lb 143 lb 4.807 oz Microbiology Reports for the Last 24 Hours: Microbiology 02/25/21 04:40 Urine,Clean Catch Urine Culture - Preliminary Gram Negative Rods Gram Negative Rods#2 02/25/21 06:52 Blood Blood Culture - Preliminary NO GROWTH AFTER 48 HOURS 02/25/21 06:52 Blood Blood Culture - Preliminary NO GROWTH AFTER 48 HOURS - Constitutional no acute distress - *Routine Respiratory Exam Absent: respiratory distress - *Routine Cardiovascular Exam Absent: tachycardia - *Routine Abdominal Exam Present: tenderness
[2021-02-28 07:37] LABS: Urine Pregnancy, HCG Qual. Negative (Negative)
--- NOTE | 2021-02-28 07:58 | HMH.ANESCL ---
[facility] Anesthesia Checklist - Patient Identification Patient Identification: Arm Band - Structural Data Admitted From: Home Planned Operative Procedure/s: Laparoscopic Cholecystectomy with Liver Biopsy Consent for Planned Operative Procedure(s) Verified: Yes Verified Documents: Surgical Consent, History and Physical - NPO Status Verified Time NPO: 00:00 - Additional verifications Anesthesia Reactions: No - Airway Assessment C-Spine Mobility Assessed: Yes (mp2) TMJ Mobility Assessed: Yes Dentition: Good Dentition - Neurological Assessment Level of Consciousness: Awake, Alert - Anesthesia Plan Anesthesia Risk discussed: Yes Anesthesia Plan: Verified ASA Class: II Anesthesia Type: General [facility] History I have reviewed the patient's past medical history: Yes Medical History: Reports:: Asthma Denies:: Diabetes Mellitus Type 1, Diabetes Mellitus Type 2 *Have you ever received a pneumonia vaccine?: No *Have you received a flu vaccine this season?: No Anesthesia experience/problems:: nac Other Surgeries: Yes: , Tubal Ligation - *Social History Last grade of school completed: High school graduate Smoking Status: Current every day smoker Alcohol Intake: current Alcohol Intake Frequency:: a few times a month Substance Use Type: denies use *Occupational Status:: unemployed *Travel in the last 8 weeks: None Family Hx:: Unable to obtain
--- NOTE | 2021-02-28 09:28 | HMH.OPNOTE ---
Date of procedure: 02/28/21 Pre-op Diagnosis:: Right upper quadrant pain; gallbladder distention; liver function test abnormality; hepatitis C Post-op Diagnosis:: Same as preoperative diagnoses with the addition of the following: Chronic cholecystitis Procedure performed:: Laparoscopic cholecystectomy Liver biopsy Surgeon:: Federico Madera MD Anesthesia: GETA Estimated blood loss (mL): 15 Operative findings:: Fairly significant gallbladder distention without sign of hydrops Infundibular thickening consistent with chronic cholecystitis Focal inflammatory changes around the infundibulum with cystic duct angulation and moderately short cystic duct Intraoperative cholangiogram not performed secondary to above findings Operative note:: After informed consent was obtained, the patient was taken to the operating room and placed in the supine position. General anesthesia was induced and the abdomen was prepped and draped in a sterile fashion. After infiltration with local anesthetic an infraumbilical incision was made. A Veress needle was placed in position. The abdomen was insufflated. A 5 mm optical trocar was placed in position. Under direct visualization, a 12 mm trocar was placed in the subxiphoid position and 2 additional 5 mm trocars were placed in the right upper quadrant. Significant gallbladder distention confirmed. The liver was enlarged and nodular. The gallbladder was elevated up and over the liver margin. The tissue around the cystic duct was carefully dissected. Focal inflammatory changes in and around the infundibulum with overall tissue thickening was noted. The cystic duct was somewhat angulated and moderately foreshortened. The decision was made to forego any attempts at cholangiogram. 3 clips were placed proximally and the duct was transected with harmonic kaitlin. Harmonic kaitlin were then utilized to dissect the gallbladder away from the liver margin with careful attention to the control of the cystic artery. The gallbladder was placed in a retrieval bag and removed through the subxiphoid trocar site. A small portion of hepatic tissue was transected just beyond the margin of the gallbladder fossa. This was transected with harmonic kaitlin and removed through the subxiphoid trocar site. Harmonic kaitlin were utilized to achieve hemostasis. The right upper quadrant was thoroughly irrigated. No active bleeding or bile leak was noted. Fascia at the subxiphoid trocar site was reapproximated utilizing the NeoClose device. The remaining trocars were removed. All wounds were irrigated and skin was closed with 4-0 Monocryl in a subcuticular fashion. Steri-Strips were applied. The patient's anesthetic agents were reversed and extubation was completed prior to transfer to recovery in stable condition. Condition: stable Disposition: PACU Specimens:: Gallbladder Liver biopsy Complications:: No immediate
--- NOTE | 2021-02-28 09:37 | HMH.ANESI ---
[facility] Anesthesia Record Part I Intake, IV Amount: 600 Estimated blood loss (mL): 10 Urine output (mL): 0 Blood Products used (#): none Blood Pressure: 100/44 SaO2: 100 Pulse Rate: 60 Respiratory Rate: 18 Temperature: 97.4 F Patient is:: Awake, Stable Stable to PACU at:: 09:34
--- NOTE | 2021-02-28 10:29 | PC.NURSE ---
daughter of patient called and spoke with Lizbeth Jj RN. Instructed family on patient's current status
--- NOTE | 2021-02-28 11:08 | PC.NURSE ---
1009-detailed report called to CEDRIC Beasley 1011-pt transported to med/surg room 210 via hospital bed with em rails up and left in care of CEDRIC Mendoza, detailed report given at bedside, vss, pt stable
--- NOTE | 2021-02-28 11:39 | PC.NURSE ---
Patient refused gabapentin due to pain medication given in OR. Fluids restarted, please refer to eMAR
--- NOTE | 2021-02-28 11:41 | DIET.NUTRFU ---
Pt given low fat diet s/p cholecystectomy this am. Previously tolerating diet fair-well with 50% PO intakes. Lipase slighly re-elevated to 572 today, improved from admission. Recommend continuing low fat diet, will monitor to alter as indicated. Will provide low fat/pancreatitis diet edu as pt recovers from surgery, written edu provided.
--- NOTE | 2021-02-28 12:24 | P.PN_ITS ---
Internal Medicine - PN: Subj *Date: 02/28/21 *Time: 12:24 Exam Vital signs and Labs for Last 24 Hours: Temp Pulse Resp BP Pulse Ox 97.1 F L 66 16 114/78 98 02/28/21 10:11 02/28/21 10:11 02/28/21 10:11 02/28/21 10:11 02/28/21 10:11 Laboratory Results - last 24 hr 02/28/21 06:18: Sodium 138, Potassium 3.7 D, Chloride 103, Carbon Dioxide 31 H, Anion Gap 7.7, BUN < 2 L, Creatinine 0.60, Estimated Creat Clear 136, Estimated GFR 114, Est GFR ( Amer) 138, Glucose 109 H, Calcium 8.0 L, Total Bilirubin 1.7 H, AST 156 H, ALT 72, Alkaline Phosphatase 86, Total Protein 5.9 L , Albumin 3.0 L D, Globulin 2.9, Albumin/Globulin Ratio 1.0 L, Lipase 572 H 02/28/21 07:25: Urine HCG, Qual Negative I & O for Last 24 hours: Intake & Output 02/25/21 02/26/21 02/27/21 02/28/21 23:59 23:59 23:59 23:59 Intake Total 120 / 120 2837 / 2837 390 / 390 600 / 600 Balance 120 / 120 2837 / 2837 390 / 390 600 / 600 Weight 63.503 kg 64 kg 65 kg Microbiology Reports for the Last 24 Hours: Microbiology 02/25/21 04:40 Urine,Clean Catch Urine Culture - Final Escherichia hermannii Escherichia coli Assessment and Plan (1) Abdominal pain Status: Acute Qualifiers: Abdominal location: epigastric Qualified Code(s): R10.13 - Epigastric pain Category: Medical Code(s): R10.9 - Unspecified abdominal pain (2) Elevated liver enzymes Status: Acute Category: Medical Code(s): R74.8 - Abnormal levels of other serum enzymes (3) Hypokalemia Status: Acute Category: Medical Code(s): E87.6 - Hypokalemia (4) Proteinuria Status: Acute Category: Medical Code(s): R80.9 - Proteinuria, unspecified (5) Pancreatitis Status: Acute Qualifiers: Chronicity: acute Pancreatitis type: unspecified pancreatitis type Acute pancreatitis complication: no infection or necrosis Qualified Code(s): K85.90 - Acute pancreatitis without necrosis or infection, unspecified Category: Medical Code(s): K85.90 - Acute pancreatitis without necrosis or infection, unspecified (6) Nausea and vomiting Status: Acute Category: Medical Code(s): R11.2 - Nausea with vomiting, unspecified (7) Hepatitis C Status: Acute Qualifiers: Viral hepatitis chronicity: unspecified Hepatic coma status: without hepatic coma Qualified Code(s): B19.20 - Unspecified viral hepatitis C without hepatic coma Category: Medical Code(s): B19.20 - Unspecified viral hepatitis C without hepatic coma The patient's infection will respond to the chosen ABx?: Yes Is the patient receiving the right drug, dose, and route?: Yes Could a more targeted ABx be ordered?: No
--- NOTE | 2021-02-28 13:53 | P.PN_ITS ---
[facility] Anesthesia Record Part II Discharge Time: 10:04 Destination: Surgical Day Care (OP Surgery) PACU nurse assessment reviewed?: Yes Patient Condition:: Good Anesthesia Complications:: None Swallowing reflex intact?: Yes Cyanosis?: No Blood Pressure: 114/78 Pulse Rate: 66 Temperature: 97.1 F Mental Status: Alert & Oriented Pain level:: 0 Nausea and/or vomitting:: None Intake, IV Amount: 35
--- NOTE | 2021-02-28 17:07 | HMH.ACPN2 ---
Internal Medicine - PN: Subj *Date: 03/01/21 *Time: 07:31 Interval history: had surg today Exam Vital signs and Labs for Last 24 Hours: Temp Pulse Resp BP Pulse Ox 97.1 F L 66 20 114/78 98 02/28/21 13:54 02/28/21 13:54 02/28/21 13:54 02/28/21 13:54 02/28/21 10:11 Laboratory Results - last 24 hr 02/26/21 07:52: Hepatitis C Ab Note Comment, HCV Quantitation [id number], HCV RNA (PCR) IU log10 4.236 02/28/21 06:18: Sodium 138, Potassium 3.7 D, Chloride 103, Carbon Dioxide 31 H, Anion Gap 7.7, BUN < 2 L, Creatinine 0.60, Estimated Creat Clear 136, Estimated GFR 114, Est GFR ( Amer) 138, Glucose 109 H, Calcium 8.0 L, Total Bilirubin 1.7 H, AST 156 H, ALT 72, Alkaline Phosphatase 86, Total Protein 5.9 L, Albumin 3.0 L D, Globulin 2.9, Albumin/Globulin Ratio 1.0 L, Lipase 572 H 02/28/21 07:25: Urine HCG, Qual Negative I & O for Last 24 hours: Intake & Output 02/26/21 02/27/21 02/28/21 03/01/21 11:59 11:59 11:59 11:59 Intake Total 2487 / 2487 470 / 470 990 / 990 35 / 35 Balance 2487 / 2487 470 / 470 990 / 990 35 / 35 Weight 143 lb 4.807 oz Microbiology Reports for the Last 24 Hours: Microbiology 02/25/21 04:40 Urine,Clean Catch Urine Culture - Final Escherichia hermannii Escherichia coli - Constitutional no acute distress - *Routine HEENT Exam Head: Present: normocephalic Eye: Present: EOMI, PERRL ENT: Present: mucous membranes dry - *Routine Neck Exam Absent: JVD - *Routine Respiratory Exam Present: decreased breath sounds - *Routine Cardiovascular Exam Present: RRR - *Routine Abdominal Exam Present: soft - *Routine Extremities Exam Absent: calf tenderness - *Routine Skin Exam Present: intact - *Routine Neurological Exam Present: alert, CN II-XII intact - Routine Psychiatric Exam Present: normal affect Assessment and Plan (1) Abdominal pain Status: Acute Qualifiers: Abdominal location: epigastric Qualified Code(s): R10.13 - Epigastric pain Category: Medical Code(s): R10.9 - Unspecified abdominal pain (2) Elevated liver enzymes Status: Acute Category: Medical Code(s): R74.8 - Abnormal levels of other serum enzymes (3) Hypokalemia Status: Acute Category: Medical Code(s): E87.6 - Hypokalemia (4) Proteinuria Status: Acute Category: Medical Code(s): R80.9 - Proteinuria, unspecified (5) Pancreatitis Status: Acute Qualifiers: Chronicity: acute Pancreatitis type: unspecified pancreatitis type Acute pancreatitis complication: no infection or necrosis Qualified Code(s): K85.90 - Acute pancreatitis without necrosis or infection, unspecified Category: Medical Code(s): K85.90 - Acute pancreatitis without necrosis or infection, unspecified (6) Nausea and vomiting Status: Acute Category: Medical Code(s): R11.2 - Nausea with vomiting, unspecified (7) Hepatitis C Status: Acute Qualifiers: Viral hepatitis chronicity: unspecified Hepatic coma status: without hepatic coma Qualified Code(s): B19.20 - Unspecified viral hepatitis C without hepatic coma Category: Medical Code(s): B19.20 - Unspecified viral hepatitis C without hepatic coma (8) Chronic cholecystitis Status: Acute Category: Medical Code(s): K81.1 - Chronic cholecystitis
--- NOTE | 2021-02-28 19:34 | PC.NURSE ---
Patient complained of Nausea throughout shift, patient claims to have vomited, but this was not witnessed by nurse- patient stated she flushed her vomitus. Surgical site was assessed as per protocol with Postop vitals, patient experiencing continual tenderness to surgical site, scant bleeding i evident in medial ABD site. Patient was able to ambulate to the chair and tthroughout room as tolerated throughout shift. Patient complained of some acute pain to surgical site, pain treated. Please refer to eMAR
--- NOTE | 2021-03-01 03:17 | PC.NURSE ---
No acute changes t/o shift. Pt rested well all shift. Pt has 4 incisions sites on abdomen, umbilical site has scant bleeding present. Pt denies any N/V throughout the night thus far. IV is patent with NS infusing @ 125ml/hr. VSS, pt is able to make needs known to staff, will continue to monitor.
[2021-03-01 03:41] VITALS: BP 152/74; PULSE 79; RESP 16; TEMP 36.6; O2SAT 100
--- NOTE | 2021-03-01 04:50 | PC.NURSE ---
Pt called out requesting pain meds and something for nausea, stated she vomited x1. C/o of pain in her abdomen, all incision sites remain the same, umbilical site scant drainage noted, other 3 incision sites remain C/D/I. Admin meds per MAR, with relief. Pt is resting comfortably in bed.
[2021-03-01 05:00] VITALS: BMI 26.4
[2021-03-01 07:58] LABS: Basophils % 0.5 % (0.1-2.0); Eosinophils % 0.7 % (0.1-12.0); Hematocrit 39.1 % (37.0-47.0); Hemoglobin 12.9 g/dL (12.2-16.2); Lymphocytes # 1.5 K/mm3 (0.7-4.5); Lymphocytes % 27.3 % (10-50); Mean Corpuscular HGB Conc 32.9 g/dL (31.8-35.4); Mean Corpuscular Hemoglobin 36.8 pg (27.0-31.2); Mean Corpuscular Volume 111.9 fl (81-99); Mean Platelet Volume 8.4 fl (7.4-10.4); Monocytes # 0.4 K/mm3 (0.1-1.0); Monocytes % 7.2 % (1.7-9.3); Neutrophils # 3.6 K/mm3 (1.8-7.8); Neutrophils % 64.3 % (37.0-80.0); Platelet Count 172 K/mm3 (142-424); Red Blood Count 3.49 M/mm3 (4.20-5.40); Red Cell Distribution Width 16.4 % (11.5-17.5); White Blood Count 5.5 K/mm3 (4.8-10.8)
[2021-03-01 08:00] VITALS: BP 100/54; PULSE 77; RESP 16; TEMP 37.2; O2SAT 100
[2021-03-01 08:03] LABS: Alanine Aminotransferase 83 U/L (12-78); Albumin Level 2.8 g/dl (3.5-5.0); Alkaline Phosphatase 80 U/L (38-126); Anion Gap 6.6 mEq/L (5-15); Aspartate Amino Transferase 193 U/L (14-36); Bilirubin,Total 1.3 mg/dl (0.2-1.3); Carbon Dioxide 29 mmol/L (22.0-30.0); Chloride 103 mmol/L (98-107); Creatinine Clearance Estimated 163 mL/min (50-200); Estimated Glomerular Filt Rate 141 ml/min (>60); GFR (African American) 171 ML/MIN (>60); Globulin 2.7 g/dL (1.3-3.2); Glucose 141 mg/dl (74-100); Lipase 267 U/L (23-300); Potassium 3.6 mmoL/L (3.5-5.1); Sodium 135 mmol/L (136-145); Total Protein,Serum 5.5 g/dl (6.3-8.2)
[2021-03-01 08:10] LABS: Blood Urea Nitrogen < 2 mg/dl (7-17)
--- NOTE | 2021-03-01 09:10 | HMH.ACPN2 ---
Internal Medicine - PN: Subj *Date: 03/01/21 *Time: 09:10 Interval history: looks better - but having post -op sx - labs better- has e coli and e hermannilli Exam Vital signs and Labs for Last 24 Hours: Temp Pulse Resp BP Pulse Ox 98.9 F 77 16 100/54 L 100 03/01/21 08:00 03/01/21 08:00 03/01/21 08:00 03/01/21 08:00 03/01/21 08:00 Laboratory Results - last 24 hr 02/26/21 07:52: Hepatitis C Ab Note Comment, HCV Quantitation [id number], HCV RNA (PCR) IU log10 4.236 03/01/21 06:05: WBC 5.5, RBC 3.49 L, Hgb 12.9, Hct 39.1, MCV 111.9 H, MCH 36.8 H, MCHC 32.9, RDW 16.4, Plt Count 172, MPV 8.4, Neut % (Auto) 64.3, Lymph % (Auto) 27.3, [place] % (Auto) 7.2, Eos % (Auto) 0.7, Baso % (Auto) 0.5, Neut # (Auto) 3.6, Lymph # (Auto) 1.5, [place] # (Auto) 0.4, Eos # (Auto) 0.0, Baso # (Auto) 0.0 03/01/21 06:05: Sodium 135 L, Potassium 3.6, Chloride 103, Carbon Dioxide 29, Anion Gap 6.6, BUN < 2 L, Creatinine 0.50 L, Estimated Creat Clear 163, Estimated GFR 141, Est GFR ( Amer) 171 D, Glucose 141 H D, Calcium 8.0 L, Total Bilirubin 1.3, AST 193 H, ALT 83 H, Alkaline Phosphatase 80, Total Protein 5.5 L, Albumin 2.8 L, Globulin 2.7, Albumin/Globulin Ratio 1.0 L, Lipase 267 I & O for Last 24 hours: Intake & Output 02/26/21 02/27/21 02/28/21 03/01/21 11:59 11:59 11:59 11:59 Intake Total 2487 / 2487 470 / 470 990 / 990 275 / 275 Balance 2487 / 2487 470 / 470 990 / 990 275 / 275 Weight 143 lb 4.807 oz 143 lb 4.807 oz Microbiology Reports for the Last 24 Hours: Microbiology 02/25/21 04:40 Urine,Clean Catch Urine Culture - Final Escherichia hermannii Escherichia coli - Constitutional no acute distress - *Routine HEENT Exam Head: Present: normocephalic Eye: Present: EOMI, PERRL ENT: Present: mucous membranes dry - *Routine Neck Exam Present: supple - *Routine Respiratory Exam Present: CTA bilaterally - *Routine Cardiovascular Exam Present: RRR - *Routine Abdominal Exam Present: tenderness - *Routine Extremities Exam Absent: calf tenderness - *Routine Skin Exam Present: intact - *Routine Neurological Exam Present: alert, CN II-XII intact - Routine Psychiatric Exam Present: normal affect Assessment and Plan (1) Abdominal pain Status: Acute Qualifiers: Abdominal location: epigastric Qualified Code(s): R10.13 - Epigastric pain Category: Medical Code(s): R10.9 - Unspecified abdominal pain (2) Elevated liver enzymes Status: Acute Category: Medical Code(s): R74.8 - Abnormal levels of other serum enzymes (3) Hypokalemia Status: Acute Category: Medical Code(s): E87.6 - Hypokalemia (4) Proteinuria Status: Acute Category: Medical Code(s): R80.9 - Proteinuria, unspecified (5) Pancreatitis Status: Acute Qualifiers: Chronicity: acute Pancreatitis type: unspecified pancreatitis type Acute pancreatitis complication: no infection or necrosis Qualified Code(s): K85.90 - Acute pancreatitis without necrosis or infection, unspecified Category: Medical Code(s): K85.90 - Acute pancreatitis without necrosis or infection, unspecified (6) Nausea and vomiting Status: Acute Category: Medical Code(s): R11.2 - Nausea with vomiting, unspecified (7) Hepatitis C Status: Acute Qualifiers: Viral hepatitis chronicity: unspecified Hepatic coma status: without hepatic coma Qualified Code(s): B19.20 - Unspecified viral hepatitis C without hepatic coma Category: Medical Code(s): B19.20 - Unspecified viral hepatitis C without hepatic coma (8) Chronic cholecystitis Status: Acute Category: Medical Code(s): K81.1 - Chronic cholecystitis (9) E. coli UTI (urinary tract infection) Status: Acute Category: Medical Code(s): N39.0 - Urinary tract infection, site not specified; B96.20 - Unspecified Escherichia coli [E. coli] as the cause of diseases classified elsewhere (1
--- NOTE | 2021-03-01 11:40 | HMH.DCSUM ---
General - General Admission date:: 02/25/21 Discharge date: 03/01/21 HPI HPI: 35-year-old female patient presented to the [facility] emergency department with complaints of off and on right upper quadrant/epigastric pain for 2 weeks and increasing pain in the last 3 days to intolerable with increased nausea/vomiting/diarrhea. She rates her pain at 8 out of 10 and reports that it is stabbing and twisting. She reports pain will occur both before and after meals and reports sometimes she will walk for 20 minutes and pain will subside. Patient reports she is unable to keep anything down neither solids nor liquids. She reports she does have a primary care provider in [facility] and has not had an appointment herself in several years. General surgery consulted White blood cell count is normal, hemoglobin hematocrit stable Potassium 2.7 and will be replaced, amylase 124 and lipase 617 Urinalysis reveals bacteria 3+, protein 2+, and leukocytes negative Urine culture and blood cultures x2 pending 02/25/21 Abd/Pelvic CT: FINDINGS: Liver: Fatty infiltration. Gallbladder and bile ducts: Gallbladder distention. No significant ductal dilation. Pancreas: Unremarkable. No ductal dilation. Spleen: No splenomegaly. Adrenal glands: No mass. Kidneys and ureters: Unremarkable. No significant hydronephrosis. Stomach and bowel: No definite mural thickening. No obstruction. Appendix: Normal caliber. No inflammation. Intraperitoneal space: No significant fluid collection. No definite free air. Vasculature: Unremarkable. No aneurysm. Lymph nodes: No pathologically enlarged lymph nodes. Urinary bladder: Borderline bladder wall thickening, up to 4-5 mm. Incomplete distention, limiting evaluation. Reproductive: RIGHT tubal ligation clip. Displaced LEFT tubal ligation clip. Probable 1.4 cm RIGHT ovarian follicle. Bones/joints: Healing RIGHT rib fracture. Soft tissues: Unremarkable. IMPRESSION: 1. Cystitis vs underdistention. Correlate with urinalysis. 2. Gallbladder distention. Consider ultrasound. Electronically signed by Khris Finnegan MD 02/25/21 CXR: IMPRESSION: No acute findings. Electronically signed by Anthony Maldonado MD Hospital Course Hospital Course: Laboratory Tests 02/25/21 02/25/21 02/25/21 03:00 03:02 03:02 WBC 8.6 RBC 4.68 Hgb 17.2 H Hct 51.6 H MCV 110.1 H MCH 36.8 H MCHC 33.4 RDW 16.4 Plt Count 345 MPV 8.3 Neut % (Auto) 64.8 Lymph % (Auto) 25.8 [place] % (Auto) 7.9 Eos % (Auto) 0.1 Baso % (Auto) 1.3 Neut # (Auto) 5.6 Lymph # (Auto) 2.2 [place] # (Auto) 0.7 Eos # (Auto) 0.0 Baso # (Auto) 0.1 ESR Sodium 132 L Potassium 2.7 L* Chloride 75 L Carbon Dioxide 35 H Anion Gap 24.7 H BUN 16 Creatinine 0.90 Estimated Creat Clear 88 Estimated GFR 72 Est GFR ( Amer) 87 Glucose 163 H Lactate Calcium 9.8 Total Bilirubin 2.4 H AST 266 H ALT 119 H Alkaline Phosphatase 174 H C-Reactive Protein Total Protein 8.4 H Albumin 4.7 Globulin 3.7 H Albumin/Globulin Ratio 1.3 Triglycerides Cholesterol LDL Cholesterol Direct VLDL Cholesterol HDL Cholesterol Cholesterol/HDL Ratio Amylase 124 H Lipase 617 H Procalcitonin Urine Color Urine Appearance Urine pH Ur Specific [place] Urine Protein Urine Glucose (UA) Urine Ketones Urine Blood Urine Nitrate Urine Bilirubin Urine Urobilinogen Ur Leukocyte Esterase Urine RBC Urine WBC Urine Bacteria Urine Mucus Urine HCG, Qual SARS-CoV-2 (PCR) Hepatitis A IgM Ab Negative Hep Bs Antigen Negative Hep B Core IgM Ab Negative Hepatitis C Antibody >11.0 H Hepatitis C Ab Note HCV Quantitation HCV RNA (PCR) IU log10 Influenza A Untype (PCR) Influenza Type B (PCR
--- NOTE | 2021-03-01 14:46 | HMH.PHAINT ---
DISCHARGE MEDICATION COUNSELING COMPLETE. PATIENT STATED SHE HAD NO QUESTIONS
[2021-03-01 16:00] VITALS: BP 120/83; PULSE 86; RESP 14; TEMP 36.8
== END 2021-03-01 17:35 | disposition home or self-care (01) | DRG 417 ==
LOC: ER 07:00 → 2ND 13:23
PROVIDERS: Surgery; Admitting Provider Family Medicine; Emergency Provider Emergency Medicine; Visit Provider Family Medicine
PROC: 0FT44ZZ Resection of Gallbladder, Percutaneous Endoscopic Approach (ICD-10-PCS; CPT 47562; principal; 2021-02-28 08:30)
DX: K81.1 Chronic cholecystitis (principal); K85.90 Acute pancreatitis without necrosis or infection, unspecified; B17.10 Acute hepatitis C without hepatic coma; N39.0 Urinary tract infection, site not specified; Z20.822 Contact with and (suspected) exposure to COVID-19; E87.6 Hypokalemia; B96.20 Unspecified Escherichia coli [E. coli] as the cause of diseases classified elsewhere
CPT/HCPCS: 47562; 47379; 36415; 71046; 74177; 76705; 80053; 80061; 80074; 81001; 81025; 82150; 83605; 83690; 84132; 84145; 85025; 85651; 86140; 87040; 87086; 87088; 87186; 87522; 88304; 88307; 88313; 93005; 96365; 96367; 96375; 99284; C9803; J1335; J2405; J2710; Q9967; U0003; U0005

== ENCOUNTER 2021-03-31 14:50 | Emergency (ER) | payer MEDICAID, SELFPAY ==
--- NOTE | 2021-03-31 15:38 | ECG_ITS ---
APPROVED REPORT Exam: Resting ECG HR:130 bpm ECG Measurements Heart Rate 130 AXES [place] 126 P 74 QRSd 70 QRS 35 QT 314 T 9 QTc 462 Conclusion Sinus tachycardia Nonspecific ST abnormality Abnormal ECG Electronically signed by : David Petersen MD 04/01/2021 14:26:03
[2021-03-31 15:42] VITALS: BMI 22.6
--- NOTE | 2021-03-31 15:43 | XR_ITS ---
PROCEDURE INFORMATION: Exam: XR Chest Exam date and time: 03/31/2021 3:43 PM Age: 35 years old Clinical indication: Sternal or substernal pain; Additional info: Chest pain TECHNIQUE: Imaging protocol: XR of the chest. Views: 1 view. COMPARISON: CR XR CHEST 2V 02/25/2021 6:56 AM FINDINGS: Lungs: Hyperinflation, without acute airspace disease. Pleural spaces: No pleural effusion. Heart/Mediastinum: Normal configuration of the heart. Bones/joints: Scoliosis. When correlating with the previous study, no significant interval changes are present. IMPRESSION: Stable appearance of the chest, not significantly changed from 02/25/21.
[2021-03-31 15:55] VITALS: BP 149/100; PULSE 100; RESP 20; TEMP 36.8; O2SAT 98; BMI 23.8
--- NOTE | 2021-03-31 16:36 | HMH.EDGENADL ---
ED Disposition Clinical Impression: Dehydration Disposition: Home, Self-Care Condition on Discharge: Good Additional Instructions: Stay well-hydrated. Home medications as directed. Follow-up with your PCP tomorrow. Referrals: Sander Gutiérrez JR, MD [Primary Care Provider] - 04/01/21 (Call for appointment tomorrow) Time of Disposition: 18:44 - Critical Care Critical Care Time: No Attestation: On 03/31/21, the high probability of a clinically significant, sudden or life threatening deterioration of the following system(s) required my full and direct attention, intervention and personal management. The time I documented below is in addition to time spent performing reported procedures but includes the following listed in this critical care notation. Medical Decision Making - Medical Records Medical records reviewed: Yes: I reviewed the patient's medical records. - Jonny Inquiry Pt receiving controlled substance: No Vital Signs: 03/31/21 15:55 Temperature 98.3 F Temperature Source Oral Pulse Rate [Right] 100 H Respiratory Rate 20 Blood Pressure [Right Arm] 149/100 H Blood Pressure Mean [Right Arm] 116 Blood Pressure Source [Right Arm] Automatic Cuff 02 Sat by Pulse Oximetry 98 - Lab Data Lab Results 03/31/21 15:45: SARS-CoV-2 (PCR) Not detected, Influenza A Untype (PCR) Not detected, Influenza Type B (PCR) Not detected 03/31/21 16:10: WBC 7.0, RBC 4.14 L, Hgb 15.3, Hct 45.7, MCV 110.3 H, MCH 37.0 H, MCHC 33.5, RDW 15.4, Plt Count 241, MPV 8.1, Neut % (Auto) 61.6, Lymph % (Auto) 31.1, [place] % (Auto) 6.2, Eos % (Auto) 0.2, Baso % (Auto) 0.9, Neut # (Auto) 4.3, Lymph # (Auto) 2.2, [place] # (Auto) 0.4, Eos # (Auto) 0.0, Baso # (Auto) 0.1 03/31/21 16:10: Sodium 138, Potassium 3.3 L, Chloride 96 L, Carbon Dioxide 23, Anion Gap 22.3 H, BUN 2 L, Creatinine 0.70, Estimated Creat Clear 105, Estimated GFR 96, Est GFR ( Amer) 116, Glucose 129 H, Calcium 9.0, Troponin I < 0.01 Result diagrams: 03/31/21 16:10 03/31/21 16:10 Orders (Tests/Meds): ED MEDICATIONS Generic Name Dose Route Start Last Admin Trade Name Freq PRN Reason Stop Dose Admin Sodium Chloride 1,000 mls @ 999 mls/hr 03/31/21 16:45 03/31/21 16:43 Sod Chlor 0.9% 1000ml Bag IV 03/31/21 17:45 999 mls/hr .Q1H1M ALNDON Administration Lactated Ringer's 1,000 mls @ 999 mls/hr 03/31/21 18:00 03/31/21 17:51 Lactated Ringer's 1000 Ml Bag IV 03/31/21 19:00 999 mls/hr .Q1H1M LANDON Administration Discontinued Medications Generic Name Dose Route Start Last Admin Trade Name Freq PRN Reason Stop Dose Admin Aspirin 324 mg 03/31/21 15:44 03/31/21 16:36 Aspirin 81mg Chewable Tablet PO 03/31/21 15:45 324 mg ONCE ONE Administration Ondansetron HCl 4 mg 03/31/21 16:37 03/31/21 16:43 Ondansetron 4mg/2ml Vial IV 03/31/21 16:38 4 mg ONCE ONE Administration ORDERS Category Date Time Status Troponin I Q3H Lab 03/31/21 18:45 Ordered Troponin I Q3H Lab 03/31/21 21:45 Ordered - ECG Data Tracing #1 I reviewed this ECG and interpreted as documented below: Sinus tachycardia, 130 bpm, no ST elevation or depression, normal intervals, no ectopy. ECG initial impression date: 03/31/21 ECG initial impression time: 15:45 Medical Decision Narrative: 35yo F evaluated for multiple complaints. Patient is in no acute distress on initial evaluation. She is found to be tachycardic but she speaks in complete sentences and is satting 100% on room air. Physical exam is benign. Laboratory studies are pending at this time. Patient being treated with fluid bolus and Zofran IV. Patient's laboratory studies are largely unremarkable except for an elevated anion gap. Her potassium is mildly depleted at 3.3. She is received a liter of normal saline and is now receiving a liter of LR. This should correct her anion gap as well as her hypokalemia. Findings shared with the patient at bedside. She is appropriate stable for disc
[2021-03-31 16:50] LABS: Basophils # 0.1 K/mm3 (0-0.2); Basophils % 0.9 % (0.1-2.0); Eosinophils % 0.2 % (0.1-12.0); Hematocrit 45.7 % (37.0-47.0); Hemoglobin 15.3 g/dL (12.2-16.2); Lymphocytes # 2.2 K/mm3 (0.7-4.5); Lymphocytes % 31.1 % (10-50); Mean Corpuscular HGB Conc 33.5 g/dL (31.8-35.4); Mean Corpuscular Volume 110.3 fl (81-99); Mean Platelet Volume 8.1 fl (7.4-10.4); Monocytes # 0.4 K/mm3 (0.1-1.0); Monocytes % 6.2 % (1.7-9.3); Neutrophils # 4.3 K/mm3 (1.8-7.8); Neutrophils % 61.6 % (37.0-80.0); Platelet Count 241 K/mm3 (142-424); Red Blood Count 4.14 M/mm3 (4.20-5.40); Red Cell Distribution Width 15.4 % (11.5-17.5)
[2021-03-31 16:52] LABS: Chloride 96 mmol/L (98-107); Sodium 138 mmol/L (136-145)
[2021-03-31 16:53] LABS: Potassium 3.3 mmoL/L (3.5-5.1)
[2021-03-31 16:55] LABS: Anion Gap 22.3 mEq/L (5-15); Blood Urea Nitrogen 2 mg/dl (7-17); Carbon Dioxide 23 mmol/L (22.0-30.0); Creatinine Clearance Estimated 105 mL/min (50-200); Estimated Glomerular Filt Rate 96 ml/min (>60); GFR (African American) 116 ML/MIN (>60)
[2021-03-31 16:56] LABS: Glucose 129 mg/dl (74-100)
[2021-03-31 17:05] LABS: Coronavirus 19, PCR Not Detected (NotDetected); Influenza A, PCR Not Detected (NotDetected); Influenza B, PCR Not Detected (NotDetected)
[2021-03-31 17:09] LABS: Troponin I < 0.01 ng/ml (0.00-0.034)
[2021-03-31 18:55] VITALS: BP 134/91; PULSE 94; RESP 16; TEMP 36.8; O2SAT 97
== END 2021-03-31 18:58 | disposition home or self-care (01) ==
LOC: UTC 14:51 → ER 15:34
PROVIDERS: Emergency Provider Family Medicine; PCP Family Medicine
DX: E86.0 Dehydration (principal); J45.909 Unspecified asthma, uncomplicated; Z20.822 Contact with and (suspected) exposure to COVID-19; F17.210 Nicotine dependence, cigarettes, uncomplicated
CPT/HCPCS: 71045; 80048; 84484; 85025; 93005; 96365; 96375; 99284; C9803; J2405; U0003; U0005

== ENCOUNTER 2021-04-08 05:36 | Emergency (ER) | payer MEDICAID, SELFPAY ==
--- NOTE | 2021-04-08 05:30 | ECG_ITS ---
APPROVED REPORT Exam: Resting ECG HR:136 bpm ECG Measurements Heart Rate 136 AXES [place] 128 P 81 QRSd 82 QRS 41 QT 308 T 57 QTc 463 Conclusion Sinus tachycardia Nonspecific ST and T wave abnormality Abnormal ECG Electronically signed by : David Petersen MD 04/08/2021 22:37:46
[2021-04-08 05:37] VITALS: BP 132/96; PULSE 133; RESP 19; TEMP 36.8; O2SAT 100; BMI 23.8
[2021-04-08 05:42] VITALS: BMI 21.6
--- NOTE | 2021-04-08 05:44 | XR_ITS ---
PROCEDURE INFORMATION: Exam: XR Chest Exam date and time: 04/08/2021 5:44 AM Age: 35 years old Clinical indication: Left-sided; Patient HX: Left sided chest pain for a few days, no SX, PT denies being a smoker; Additional info: Cp TECHNIQUE: Imaging protocol: XR of the chest. Views: 2 views. COMPARISON: CR XR CHEST PORTABLE 03/31/2021 3:55 PM FINDINGS: Lungs: Unremarkable. No consolidation. Pleural spaces: Unremarkable. No pleural effusion. No pneumothorax. Heart/Mediastinum: Unremarkable. No cardiomegaly. Bones/joints: S shaped curvature of the spine. No fracture. IMPRESSION: No acute findings.
[2021-04-08 06:11] VITALS: BP 136/98; PULSE 100; RESP 18; O2SAT 98
[2021-04-08 06:16] LABS: Basophils # 0.1 K/mm3 (0-0.2); Basophils % 1.3 % (0.1-2.0); Eosinophils % 0.2 % (0.1-12.0); Hematocrit 44.4 % (37.0-47.0); Hemoglobin 15.1 g/dL (12.2-16.2); Lymphocytes # 4.4 K/mm3 (0.7-4.5); Lymphocytes % 47.3 % (10-50); Mean Corpuscular Volume 108.9 fl (81-99); Mean Platelet Volume 8.5 fl (7.4-10.4); Monocytes # 0.5 K/mm3 (0.1-1.0); Monocytes % 5.2 % (1.7-9.3); Neutrophils # 4.2 K/mm3 (1.8-7.8); Neutrophils % 45.9 % (37.0-80.0); Platelet Count 201 K/mm3 (142-424); Red Blood Count 4.08 M/mm3 (4.20-5.40); Red Cell Distribution Width 15.8 % (11.5-17.5); White Blood Count 9.2 K/mm3 (4.8-10.8)
--- NOTE | 2021-04-08 06:22 | HMH.EDCP ---
ED Disposition Clinical Impression: Atypical chest pain, Gastritis and duodenitis, Hypokalemia Alcohol intoxication Qualifiers: Complication of substance-induced condition: with unspecified complication Qualified Code(s): F10.929 - Alcohol use, unspecified with intoxication, unspecified Disposition: Home, Self-Care Condition on Discharge: Good Instructions: DI for Alcohol Use Disorder Additional Instructions: use meds and see pcp and consider alcohol rehab Prescriptions: Pantoprazole Sodium [Protonix 40mg tablet] 40 mg PO DAILY #30 tab Transmission Status: Pending to [id number] Referrals: Provider,Referral, [Referring] - - Critical Care Critical Care Time: No Attestation: On 04/08/21, the high probability of a clinically significant, sudden or life threatening deterioration of the following system(s) required my full and direct attention, intervention and personal management. The time I documented below is in addition to time spent performing reported procedures but includes the following listed in this critical care notation. Medical Decision Making - Medical Records Medical records reviewed: Yes: I reviewed the patient's medical records. - Jonny Inquiry Pt receiving controlled substance: No Vital Signs: 04/08/21 05:37 04/08/21 06:11 04/08/21 06:30 Temperature 98.2 F Temperature Source Oral Pulse Rate 100 H 115 H Pulse Rate [Right] 133 H Respiratory Rate 19 18 22 Blood Pressure 136/98 H 150/118 H Blood Pressure [Right Arm] 132/96 H Blood Pressure Mean 108 128 Blood Pressure Mean [Right Arm] 108 Blood Pressure Source [Right Arm] Automatic Cuff 02 Sat by Pulse Oximetry 100 98 98 Oxygen Delivery Method Room Air - Lab Data Lab results reviewed: Yes: I reviewed the patient's lab results. Lab Results 04/08/21 05:15: WBC 9.2, RBC 4.08 L, Hgb 15.1, Hct 44.4, MCV 108.9 H, MCH 37.0 H, MCHC 34.0, RDW 15.8, Plt Count 201, MPV 8.5, Neut % (Auto) 45.9, Lymph % (Auto) 47.3, [place] % (Auto) 5.2, Eos % (Auto) 0.2, Baso % (Auto) 1.3, Neut # (Auto) 4.2, Lymph # (Auto) 4.4, [place] # (Auto) 0.5, Eos # (Auto) 0.0, Baso # (Auto) 0.1 04/08/21 05:15: Sodium 137, Potassium 2.8 L*, Chloride 91 L, Carbon Dioxide 29, Anion Gap 19.8 H, BUN 4 L, Creatinine 0.50 L, Estimated Creat Clear 148, Estimated GFR 141, Est GFR ( Amer) 171, Glucose 218 H, Calcium 8.5, Magnesium 1.7, Total Bilirubin 1.6 H, AST 193 H, ALT 53, Alkaline Phosphatase 177 H, Troponin I < 0.01, Total Protein 7.4 D, Albumin 4.0, Salicylates < 1.0 L, Acetaminophen < 10 L 04/08/21 05:15: Plasma/Serum Alcohol 349 H Result diagrams: 04/08/21 05:15 04/08/21 05:15 Orders (Tests/Meds): ED MEDICATIONS Generic Name Dose Route Start Last Admin Trade Name Freq PRN Reason Stop Dose Admin Sodium Chloride 8 ml 04/08/21 06:08 Sodium Chloride 0.9% 10ml Vial IV 05/08/21 06:07 NEEDED PRN dilute pepcid Discontinued Medications Generic Name Dose Route Start Last Admin Trade Name Freq PRN Reason Stop Dose Admin Aspirin 324 mg 04/08/21 05:44 Aspirin 81mg Chewable Tablet PO 04/08/21 05:45 ONCE ONE Famotidine 20 mg 04/08/21 06:08 04/08/21 06:35 Famotidine 20mg/2ml Vial IV 04/08/21 06:09 20 mg ONCE ONE Administration Sodium Chloride 1,000 mls @ 999 mls/hr 04/08/21 05:45 04/08/21 06:35 Sod Chlor 0.9% 1000ml Bag IV 04/08/21 06:45 999 mls/hr .Q1H1M LANDON Administration Metoclopramide HCl 10 mg 04/08/21 06:08 04/08/21 06:35 Metoclopramide Hcl 10mg/2ml Vial IVP 04/08/21 06:09 10 mg ONCE ONE Administration Ondansetron HCl 4 mg 04/08/21 06:08 04/08/21 06:35 Ondansetron 4mg/2ml Vial IV 04/08/21 06:09 4 mg ONCE ONE Administration ORDERS Category Date Time Status Acetaminophen Stat Lab 04/08/21 05:15 Results Basic Metabolic Panel Stat Lab 04/08/21 05:15 Results Drug Screen,Urine Stat Lab 04/08/21 07:29 Received Liver Panel Stat Lab 04/08/21 05:1
[2021-04-08 06:29] LABS: Alanine Aminotransferase 53 U/L (12-78); Alkaline Phosphatase 177 U/L (38-126); Aspartate Amino Transferase 193 U/L (14-36); Bilirubin,Total 1.6 mg/dl (0.2-1.3); Blood Urea Nitrogen 4 mg/dl (7-17); Calcium 8.5 mg/dl (8.4-10.2); Carbon Dioxide 29 mmol/L (22.0-30.0); Chloride 91 mmol/L (98-107); Creatinine Clearance Estimated 148 mL/min (50-200); Estimated Glomerular Filt Rate 141 ml/min (>60); GFR (African American) 171 ML/MIN (>60); Glucose 218 mg/dl (74-100); Magnesium 1.7 mg/dl (1.6-2.3); Sodium 137 mmol/L (136-145); Total Protein,Serum 7.4 g/dl (6.3-8.2)
[2021-04-08 06:30] VITALS: BP 150/118; PULSE 115; RESP 22; O2SAT 98
--- NOTE | 2021-04-08 06:35 | PC.NURSE ---
Pt refused to take ASA at this time until my stomach can calm down .
[2021-04-08 06:40] LABS: Ethyl Alcohol 349 mg/dl (0-10)
[2021-04-08 06:48] LABS: Troponin I < 0.01 ng/ml (0.00-0.034)
[2021-04-08 06:50] LABS: Acetaminophen < 10 ug/ml (10-30); Salicylate < 1.0 mg/dL (2.0-20.0)
[2021-04-08 06:57] LABS: Anion Gap 19.8 mEq/L (5-15)
[2021-04-08 07:17] LABS: Potassium 2.8 mmoL/L (3.5-5.1)
--- NOTE | 2021-04-08 07:26 | PC.NURSE ---
Dr. Mohr notified of critical potassium
--- NOTE | 2021-04-08 07:38 | PC.NURSE ---
Dr. Mohr and this RN at bedside to discuss results & POC with pt
[2021-04-08 07:56] LABS: Barbiturates Screen,Urine Negative ng/ml (<200)
[2021-04-08 07:57] LABS: Benzodiazepines Screen,Urine Negative ng/ml (<200)
[2021-04-08 07:58] LABS: Amphetamine/Metha Screen,Urine Negative ng/ml (<1000); Cannabinoid Screen,Urine Negative ng/ml (<50)
[2021-04-08 07:59] VITALS: BP 150/86; PULSE 89; RESP 18; TEMP 36.7; O2SAT 99
[2021-04-08 07:59] LABS: Cocaine Screen,Urine Negative ng/ml (<300)
[2021-04-08 08:00] LABS: Methadone Screen,Urine Negative ng/ml (<300); Opiate Screen,Urine Negative ng/ml (<300)
[2021-04-08 08:01] LABS: Phencyclidine Screen,Urine Negative ng/ml (<25)
[2021-04-08 08:30] LABS: Bilirubin,Direct 1.2 mg/dl (0.0-0.4); Bilirubin,Indirect 0.4 mg/dL (0.0-0.9); Bilirubin,Unconjugated 0.4 mg/dL (0.0-1.1)
== END 2021-04-08 08:10 | disposition home or self-care (01) ==
PROVIDERS: Emergency Provider Emergency Medicine; PCP Family Medicine
DX: R07.89 Other chest pain (principal); F10.929 Alcohol use, unspecified with intoxication, unspecified; K29.90 Gastroduodenitis, unspecified, without bleeding; J45.909 Unspecified asthma, uncomplicated; F17.210 Nicotine dependence, cigarettes, uncomplicated
CPT/HCPCS: 71046; 80048; 80076; 80305; 80329; 83735; 84484; 85025; 93005; 96365; 96375; 99283; J2405

== ENCOUNTER 2021-07-07 12:18 | Inpatient (IN) | payer MEDICAID, SELFPAY ==
[2021-07-07] VITALS (16 sets, daily range): BP systolic 124–148; BP diastolic 69–99; PULSE 77–111; RESP 14–19; TEMP 36.3–37.4; O2SAT 96–100; BMI 24.7; BMI 23.8
--- NOTE | 2021-07-07 12:31 | XR_ITS ---
FINAL REPORT CLINICAL HISTORY: pain after punching wall FINDINGS: RIGHT HAND Three views demonstrate no acute fracture or dislocation. The joint spaces appear normal. The visualized bony structures are well aligned. There is dorsal hand soft tissue swelling. IMPRESSION: No acute process. Reviewed, Interpreted and Dictated by Kj Delcid III, MD Transcribed by Maribel Quigley Authenticated by Kj Delcid III, MD on 07/07/2021 01:21:37 PM [facility]
--- NOTE | 2021-07-07 12:32 | XR_ITS ---
FINAL REPORT CLINICAL HISTORY: weakness COMPARISON: 04/08/2021 FINDINGS: SINGLE VIEW CHEST The heart is normal in size. The mediastinum is unremarkable. The lungs are clear. There is no pneumothorax. There is dextroscoliosis of the thoracic spine. IMPRESSION: No acute cardiopulmonary process. Reviewed, Interpreted and Dictated by Kj Delcid III, MD Transcribed by Maribel Quigley Authenticated by Kj Delcid III, MD on 07/07/2021 01:21:34 PM [facility]
[2021-07-07 12:41] LABS: Basophils # 0.2 K/mm3 (0-0.2); Basophils % 1.6 % (0.1-2.0); Eosinophils % 0.4 % (0.1-12.0); Hematocrit 40.5 % (37.0-47.0); Lymphocytes # 5.8 K/mm3 (0.7-4.5); Lymphocytes % 57.7 % (10-50); Mean Corpuscular HGB Conc 32.2 g/dL (31.8-35.4); Mean Corpuscular Hemoglobin 30.2 pg (27.0-31.2); Mean Corpuscular Volume 93.9 fl (81-99); Mean Platelet Volume 8.4 fl (7.4-10.4); Monocytes # 0.5 K/mm3 (0.1-1.0); Monocytes % 4.8 % (1.7-9.3); Neutrophils # 3.6 K/mm3 (1.8-7.8); Neutrophils % 35.5 % (37.0-80.0); Platelet Count 134 K/mm3 (142-424); Red Blood Count 4.31 M/mm3 (4.20-5.40); Red Cell Distribution Width 17.5 % (11.5-17.5); White Blood Count 10.1 K/mm3 (4.8-10.8)
[2021-07-07 12:46] LABS: Amylase 104 U/L (30-110)
--- NOTE | 2021-07-07 12:46 | ECG_ITS ---
APPROVED REPORT Exam: Resting ECG HR:98 bpm ECG Measurements Heart Rate 98 AXES [place] 126 P 82 QRSd 85 QRS 63 QT 426 T 75 QTc 482 Conclusion SINUS RHYTHM WITH SINUS ARRHYTHMIA PROLONGED QT INTERVAL ABNORMAL ECG UNCONFIRMED REPORT Electronically signed by : David Petersen MD 07/07/2021 19:29:24
[2021-07-07 12:47] LABS: Alanine Aminotransferase 359 U/L (12-78); Albumin/Globulin Ratio 1.2 (1.1-1.8); Alkaline Phosphatase 354 U/L (38-126); Anion Gap 15.3 mEq/L (5-15); Bilirubin,Total 1.7 mg/dl (0.2-1.3); Blood Urea Nitrogen 3 mg/dl (7-17); Calcium 8.8 mg/dl (8.4-10.2); Carbon Dioxide 26 mmol/L (22.0-30.0); Chloride 101 mmol/L (98-107); Creatinine Clearance Estimated 152 mL/min (50-200); Estimated Glomerular Filt Rate 140 ml/min (>60); GFR (African American) 170 ML/MIN (>60); Globulin 3.4 g/dL (1.3-3.2); Glucose 135 mg/dl (74-100); INR 1.12 (0.9-1.1); Lipase 467 U/L (23-300); Potassium 3.3 mmoL/L (3.5-5.1); Prothrombin Time 12.6 seconds (10.1-12.5); Sodium 139 mmol/L (136-145); Total Protein,Serum 7.4 g/dl (6.3-8.2)
[2021-07-07 12:50] LABS: MANUAL DIFFERENTIAL MANUAL DIFFERENTIAL (MANUAL DIFF)
--- NOTE | 2021-07-07 13:00 | PC.NURSE ---
Radiology at bedside
[2021-07-07 13:06] LABS: HCG Qualitative, Serum Negative (Negative)
[2021-07-07 13:08] LABS: Ethyl Alcohol 88 mg/dl (0-10)
[2021-07-07 13:12] LABS: Lymphocytes % 52 % (10-50); Monocytes % 1 % (2-9); Neutrophils % 47 % (42-76); Platelet Estimate Slight Decrease; RBC Morphology Normal; Total Cells Counted 100
[2021-07-07 13:24] LABS: Ammonia < 9 umol/L (9-30)
[2021-07-07 13:40] LABS: Lactic Acid 4.1 mmol/L (0.7-2.1)
--- NOTE | 2021-07-07 13:41 | PC.NURSE ---
Lab reported Lactic of 4.1 MD made aware
--- NOTE | 2021-07-07 13:44 | HMH.EDNVD ---
ED Disposition Clinical Impression: Elevated liver enzymes Pancreatitis Qualifiers: Chronicity: acute Pancreatitis type: unspecified pancreatitis type Acute pancreatitis complication: no infection or necrosis Qualified Code(s): K85.90 - Acute pancreatitis without necrosis or infection, unspecified Disposition: Admitted as Observation Condition on Discharge: Good Instructions: DI for Diarrhea and Traveler's Diarrhea -- Adult, DI for Diarrhea and Traveler's Diarrhea -- Child, DI for Nausea -- Adult, DI for Nausea -- Child Referrals: Sander Gutiérrez JR, MD [Primary Care Provider] - - Critical Care Critical Care Time: No Attestation: On 07/07/21, the high probability of a clinically significant, sudden or life threatening deterioration of the following system(s) required my full and direct attention, intervention and personal management. The time I documented below is in addition to time spent performing reported procedures but includes the following listed in this critical care notation. Medical Decision Making - Medical Records Medical records reviewed: Yes: I reviewed the patient's medical records. - Jonny Inquiry Pt receiving controlled substance: No Vital Signs: 07/07/21 12:12 07/07/21 13:24 07/07/21 15:34 Temperature 99.4 F Temperature Source Oral Pulse Rate 95 H 97 H Pulse Rate [Radial] 107 H Respiratory Rate 16 Blood Pressure 145/98 H 130/91 H Blood Pressure [Right Radial Artery] 133/92 H Blood Pressure Mean [Right Radial Artery] 105 Blood Pressure Position [Right Radial Artery] Sitting 02 Sat by Pulse Oximetry 98 100 99 Oxygen Delivery Method Room Air Room Air Room Air - Lab Data Lab results reviewed: Yes: I reviewed the patient's lab results. Lab Results 07/07/21 12:15: WBC 10.1, RBC 4.31, Hgb 13.0, Hct 40.5, MCV 93.9, MCH 30.2, MCHC 32.2, RDW 17.5, Plt Count 134 L, MPV 8.4, Neut % (Auto) 35.5 L, Lymph % (Auto) 57.7 H, [place] % (Auto) 4.8, Eos % (Auto) 0.4, Baso % (Auto) 1.6, Neut # (Auto) 3.6, Lymph # (Auto) 5.8 H, [place] # (Auto) 0.5, Eos # (Auto) 0.0, Baso # (Auto) 0.2, Total Counted 100, Neutrophils % (Manual) 47, Lymphocytes % (Manual) 52 H, Monocytes % (Manual) 1 L, Platelet Estimate Slight decrease, RBC Morphology Normal 07/07/21 12:15: Sodium 139, Potassium 3.3 L, Chloride 101, Carbon Dioxide 26, Anion Gap 15.3 H, BUN 3 L, Creatinine 0.50 L, Estimated Creat Clear 152, Estimated GFR 140, Est GFR ( Amer) 170, Glucose 135 H, Calcium 8.8, Total Bilirubin 1.7 H, AST 1250 H*, ALT 359 H*, Alkaline Phosphatase 354 H, Total Protein 7.4, Albumin 4.0, Globulin 3.4 H, Albumin/Globulin Ratio 1.2, Lipase 467 H 07/07/21 12:15: PT 12.6 H, INR 1.12 H 07/07/21 12:15: Amylase 104 07/07/21 12:35: Serum HCG, Qual Negative 07/07/21 12:35: Plasma/Serum Alcohol 88 H 07/07/21 13:00: Ammonia < 9 L 07/07/21 13:00: Lactate 4.1 H 07/07/21 14:53: SARS-CoV-2 (PCR) Not detected, Influenza A Untype (PCR) Not detected, Influenza Type B (PCR) Not detected Result diagrams: 07/07/21 12:15 07/07/21 12:15 Orders (Tests/Meds): ED MEDICATIONS Generic Name Dose Route Start Last Admin Trade Name Freq PRN Reason Stop Dose Admin Sodium Chloride 1,840 mls @ 920 mls/hr 07/07/21 14:09 07/07/21 13:22 Sod Chlor 0.9% 1000ml Bag 30 ml/kg infuse over 2 hr (1840 ml) 07/07/21 16:08 920 mls/hr IV Administration .Q2H ONE Discontinued Medications Generic Name Dose Route Start Last Admin Trade Name Freq PRN Reason Stop Dose Admin Sodium Chloride 1,000 mls @ 999 mls/hr 07/07/21 13:15 07/07/21 14:11 Sod Chlor 0.9% 1000ml Bag IV 07/07/21 14:15 Not Given .Q1H1M LANDON Iopamidol 75 ml 07/07/21 14:00 07/07/21 14:00 Iopamidol-370 (76%);100ml Bottle IV 07/07/21 14:01 75 ml ONCE ONE Administration Ondansetron HCl 4 mg 07/07/21 13:12 07/07/21 13:22 Ondansetron 4mg/2ml Vial IV 07/07/21 13:13 4 mg ONCE ONE Administration Sodium Chloride 10 ml 07/07/21 14:00 07/07/21 14:00
--- NOTE | 2021-07-07 13:45 | CT_ITS ---
FINAL REPORT CLINICAL HISTORY: abd PAIN gallbladder removed FINDINGS: CT OF THE ABDOMEN AND PELVIS WITH CONTRAST Axial CT images of the abdomen and pelvis were obtained after the administration of intravenous contrast. Coronal reformatted images were also obtained and reviewed.This study was performed with techniques to keep radiation doses as low as reasonably achievable (ALARA). Individualized dose reduction techniques using automated exposure control or adjustment of mA and/or kV according to the patient's size were employed. Abdomen: There are mild bibasilar opacities, left greater than right, that could represent pneumonia or atelectasis. There is a chronic right 6th rib fracture. The heart is normal in size. The liver is fatty infiltrated. There has been cholecystectomy. There is a small amount of nonspecific fluid in the gallbladder fossa of uncertain etiology that could be reactive. The spleen is unremarkable. No adrenal mass is present. The pancreas has an unremarkable appearance. The kidneys are normal, without evidence of mass or hydronephrosis. The aorta is normal in caliber. There is a gastrohepatic ligament adenopathy measuring 1.6 cm. There is portacaval adenopathy measuring 2.4 cm. There are several other enlarged upper abdominal lymph nodes that are nonspecific and may be reactive. No mass or abnormal fluid collection is seen. Pelvis: The appendix is within normal limits. The urinary bladder is unremarkable. No inflammatory process is seen. There is no evidence of mass or adenopathy. There is no evidence of bowel obstruction. IMPRESSION: Left greater than right basilar opacities could represent pneumonia or atelectasis. Upper abdominal adenopathy is nonspecific and may be reactive. Small amount of nonspecific fluid in the gallbladder fossa of uncertain etiology could be reactive. Appendix is within normal limits. Fatty infiltration of the liver. Reviewed, Interpreted and Dictated by Kj Delcid III, MD Transcribed by Sam Kirk Authenticated by Kj Delcid III, MD on 07/07/2021 02:35:08 PM [facility]
--- NOTE | 2021-07-07 13:51 | PC.NURSE ---
Patient to CT with biomedical electronics technician
--- NOTE | 2021-07-07 14:01 | PC.NURSE ---
patient back from CT and hooked to the monitor
[2021-07-07 14:27] LABS: Aspartate Amino Transferase 1250 U/L (14-36)
[2021-07-07 15:04] LABS: Coronavirus 19, PCR Not Detected (NotDetected); Influenza A, PCR Not Detected (NotDetected); Influenza B, PCR Not Detected (NotDetected)
--- NOTE | 2021-07-07 16:26 | PC.NURSE ---
MACO WRAP APPLIED TO RT HAND
[2021-07-07 16:29] LABS: Microscopic, Urine URINE MICROSCOPIC (MICROSCOPIC)
[2021-07-07 16:59] LABS: Appearance,Urine CLEAR (Clear); Bilirubin,Urine 1+ (Negative); Blood, Urine TRACE-L (Negative); Color,Urine YELLOW (Yellow); Glucose,Urine (UA) Negative (Negative); Ketones,Urine Negative (Negative); Leukocyte Esterase,Urine Negative (Negative); Nitrate,Urine Negative (Negative); Protein,Urine Negative (Negative); Specific Gravity, Urine 1.015 (1.005-1.030)
[2021-07-07 17:10] LABS: Bacteria,Urine 1+ /lpf; Barbiturates Screen,Urine Negative ng/ml (<200); WBC,Urine Occasional #/hpf (0-3)
[2021-07-07 17:11] LABS: Amphetamine/Metha Screen,Urine Negative ng/ml (<1000); Benzodiazepines Screen,Urine Negative ng/ml (<200)
[2021-07-07 17:12] LABS: Reflex Lactic Add Lactic Reflex
[2021-07-07 17:12] LABS: Cannabinoid Screen,Urine Negative ng/ml (<50); Cocaine Screen,Urine Negative ng/ml (<300)
[2021-07-07 17:13] LABS: Methadone Screen,Urine Negative ng/ml (<300)
--- NOTE | 2021-07-07 17:13 | PC.NURSE ---
REPORT CALLED TO FLOOR
[2021-07-07 17:14] LABS: Opiate Screen,Urine Negative ng/ml (<300); Phencyclidine Screen,Urine Negative ng/ml (<25)
--- NOTE | 2021-07-07 17:34 | PC.NURSE ---
lab in room
--- NOTE | 2021-07-07 17:50 | PC.NURSE ---
REVIEWED LAB RESULTS WITH NO NEW ORDERS NOTED
--- NOTE | 2021-07-07 17:52 | PC.NURSE ---
srna from 2nd floor here to get pt
--- NOTE | 2021-07-07 17:55 | PC.NURSE ---
PT arrived to the floor at this time
[2021-07-07 18:02] LABS: Lactic Acid Follow Up (RFLX 1) 2.9 mmol/L (0.7-2.1)
[2021-07-07 19:14] LABS: Basophils # 0.1 K/mm3 (0-0.2); Basophils % 1.1 % (0.1-2.0); Eosinophils % 0.7 % (0.1-12.0); Hematocrit 33.7 % (37.0-47.0); Lymphocytes # 2.3 K/mm3 (0.7-4.5); Lymphocytes % 52.1 % (10-50); Mean Corpuscular HGB Conc 32.2 g/dL (31.8-35.4); Mean Corpuscular Hemoglobin 30.1 pg (27.0-31.2); Mean Corpuscular Volume 93.2 fl (81-99); Mean Platelet Volume 8.9 fl (7.4-10.4); Monocytes # 0.2 K/mm3 (0.1-1.0); Monocytes % 4.4 % (1.7-9.3); Neutrophils # 1.8 K/mm3 (1.8-7.8); Neutrophils % 41.6 % (37.0-80.0); Platelet Count 75 K/mm3 (142-424); Red Blood Count 3.61 M/mm3 (4.20-5.40); Red Cell Distribution Width 17.1 % (11.5-17.5); White Blood Count 4.4 K/mm3 (4.8-10.8)
[2021-07-07 19:43] LABS: Reflex Lactic (2 hrs) Add Lactic Reflex
[2021-07-07 20:18] LABS: Lactic Acid Follow up (RFLX 2) 2.1 mmol/L (0.7-2.1)
[2021-07-08 04:24] VITALS: BP 142/88; PULSE 95; RESP 19; TEMP 36.6; O2SAT 95
--- NOTE | 2021-07-08 05:22 | PC.NURSE ---
Addendum entered by Nevin Welch RN 07/08/21 05:24: pts wallet was also locked up with medications Original Note: noted pt with backpack at bedside, when moved to put in cabinet it was noted to sound like pill bottles rattling, noted pt home medications in bag, bag was locked up in med drawer at this time.
[2021-07-08 06:33] LABS: Chloride 105 mmol/L (98-107)
[2021-07-08 06:34] LABS: Sodium 132 mmol/L (136-145)
[2021-07-08 06:36] LABS: Alanine Aminotransferase 259 U/L (12-78); Albumin Level 2.7 g/dl (3.5-5.0); Albumin/Globulin Ratio 0.9 (1.1-1.8); Alkaline Phosphatase 243 U/L (38-126); Blood Urea Nitrogen 3 mg/dl (7-17); Calcium 7.6 mg/dl (8.4-10.2); Carbon Dioxide 24 mmol/L (22.0-30.0); Creatinine Clearance Estimated 147 mL/min (50-200); Estimated Glomerular Filt Rate 140 ml/min (>60); GFR (African American) 170 ML/MIN (>60); Globulin 2.9 g/dL (1.3-3.2); Glucose 108 mg/dl (74-100); Total Protein,Serum 5.6 g/dl (6.3-8.2)
[2021-07-08 06:41] LABS: Basophils % 0.6 % (0.1-2.0); Eosinophils # 0.1 K/mm3 (0.0-0.4); Eosinophils % 1.6 % (0.1-12.0); Hematocrit 32.5 % (37.0-47.0); Hemoglobin 10.3 g/dL (12.2-16.2); Lymphocytes # 1.7 K/mm3 (0.7-4.5); Lymphocytes % 53.1 % (10-50); Mean Corpuscular HGB Conc 31.7 g/dL (31.8-35.4); Mean Corpuscular Hemoglobin 29.7 pg (27.0-31.2); Mean Corpuscular Volume 93.7 fl (81-99); Mean Platelet Volume 8.3 fl (7.4-10.4); Monocytes # 0.2 K/mm3 (0.1-1.0); Monocytes % 5.1 % (1.7-9.3); Neutrophils # 1.2 K/mm3 (1.8-7.8); Neutrophils % 39.6 % (37.0-80.0); Platelet Count 76 K/mm3 (142-424); Red Blood Count 3.47 M/mm3 (4.20-5.40); Red Cell Distribution Width 17.2 % (11.5-17.5); White Blood Count 3.1 K/mm3 (4.8-10.8)
[2021-07-08 06:44] LABS: MANUAL DIFFERENTIAL MANUAL DIFFERENTIAL (MANUAL DIFF)
[2021-07-08 06:57] LABS: Aspartate Amino Transferase 779 U/L (14-36)
[2021-07-08 07:10] LABS: Lipase 423 U/L (23-300)
--- NOTE | 2021-07-08 07:17 | PC.NURSE ---
potassium level 3.[address] sullivan, repeated and verified, dr. sullivan states he will take care of it when he comes in.
[2021-07-08 07:43] VITALS: BP 134/74; PULSE 101; RESP 16; TEMP 37.1; O2SAT 97
[2021-07-08 07:50] LABS: Anisocytosis 1+; Eosinophils % 1 % (0-3); Lymphocytes % 33 % (10-50); Macrocytosis 1+; Monocytes % 4 % (2-9); Neutrophils % 62 % (42-76); Nucleated Red Blood Cells 1; Platelet Estimate Normal; Total Cells Counted 100
--- NOTE | 2021-07-08 08:31 | P.CONPHA_ITS ---
[facility] Pharmacy VTE Monitoring - Patient Demographics Admission date: 07/08/21 Report Date: 07/08/21 Time: 08:31 Allergies/Adverse Reactions: Patient Allergies BEE VENOM Allergy (Unknown, Uncoded 03/08/21 11:23) Height: 1.57 m Weight: 59.194 kg Patient Problems: Current Active Problems Elevated liver enzymes (Acute) Pancreatitis (Acute) - VTE Risk Labs: VTE Related Lab Results Hgb 10.3 g/dL (12.2-16.2) L 07/08/21 05:50 Hct 32.5 % (37.0-47.0) L 07/08/21 05:50 Plt Count 76 K/mm3 (142-424) L 07/08/21 05:50 PT 12.6 seconds (10.1-12.5) H 07/07/21 12:15 INR 1.12 (0.9-1.1) H 07/07/21 12:15 BUN 3 mg/dl (7-17) L 07/08/21 05:50 Creatinine 0.50 mg/dl (0.52-1.04) L 07/08/21 05:50 Estimated Creat Clear 147 mL/min (50-200) 07/08/21 05:50 Clinical Trial Participant: No - Prophylaxis VTE Prophylaxis Ordered?: Yes Types of VTE Prophylaxis: TEDS Knee High
--- NOTE | 2021-07-08 11:06 | SW/DCPLANNER ---
I received a Care Management consult for this patient regarding discharge planning. Patient stated that she resides at home but has recently went to a rehab due to poor ambulation and cardiac issues. Patient stated that she resides at home with family and her plan is to return home once medically stable for discharge. Patient is not interested in drug/alcohol rehab at time of discharge. Patient stated that she has been doing outpatient PT in [facility]. I have informed this patient of my name/number to contact me if she has any needs prior to discharge. Discharge date is unknown at this time.
--- NOTE | 2021-07-08 11:25 | HMH.HP ---
*Admission Date: 07/08/21 <Dominga Hinson 07/08/21 11:39> *Chief complaint: Nausea, vomiting, diarrhea <Dominga Hinson 07/08/21 11:39> *History of present illness: Ms. Earl is a 36yo female with a history of cirrhosis of liver, hepatitis C, and alcohol abuse. The patient states before [place], she was drinking quite a bit and began having nausea, vomiting, and abdominal pain. She was admitted at [facility] in May and was found to have cirrhosis of the liver, hepatitis C, and Covid. She states she stayed at [facility] for a month and was just discharged in June. She apparently tried a rehab center, but did not stay. She states she has been to two doctors appointments since her discharge. She had a in the family and had two alcoholic beverages. She states immediately she began having abdominal pain, nausea, vomiting, and diarrhea. This persisted for 4 days and she presented to [facility]. She has been able to keep her medications down for the past 4 days. She is supposed to have a follow-up with a GI physician on 07/12/2021. Her potassium was low, her liver tests were all elevated. Her bilirubin was 1.7, her AST was 1250, and her ALT was 359. Her lipase was also found to be elevated at 467. Her lactic acid was elevated as well. Her alcohol level was 88. She was admitted. She was started on alcohol withdrawal protocol along with IV fluids and pain control. Of note, she did injure her right hand after punching a wall 2 days ago. <Dominga Hinson 07/08/21 11:39> [facility] History I have reviewed the patient's past medical history: Yes <Dominga Hinson 07/08/21 11:39> Medical History: Reports:: Asthma, Gall Bladder Disease, Hepatitis (C) Denies:: Diabetes Mellitus Type 1, Diabetes Mellitus Type 2 <Dominga Hinson 07/08/21 11:39> *Have you ever received a pneumonia vaccine?: No <Dominga Hinson 07/08/21 11:39> *Have you received a flu vaccine this season?: No <Dominga Hinson 07/08/21 11:39> Other Medical History: Reports: Liver Disease <Dominga Hinson 07/08/21 11:39> Other Surgeries: Yes: , Tubal Ligation <JoyaDominga 07/08/21 11:39> - *Social History Smoking Status: Current every day smoker <Dominga Hinson 07/08/21 11:39> Alcohol Intake: current <Isaac Hinsona 07/08/21 11:39> Alcohol Intake Frequency:: other <Dominga Hinson 07/08/21 11:39> Substance Use Type: denies use <JoyaDominga 07/08/21 11:39> *Occupational Status:: other <Dominga Hinson 07/08/21 11:39> *Travel in the last 8 weeks: None <Dominga Hinson 07/08/21 11:39> Family Hx:: No significant family history <Dominga Hinson 07/08/21 11:39> Review of Systems - Constitutional Denies chills, Denies fever(s) <Domniga Hinson 07/08/21 11:39> - Eyes Denies blurry vision, Denies double vision <JoyaDominga 07/08/21 11:39> - ENT Reports nasal congestion, Denies sore throat <JoyaDominga 07/08/21 11:39> - *Cardiovascular Reports chest pain, Reports shortness of breath <Isaac Hinsona 07/08/21 11:39> - *Respiratory Reports chest congestion, Reports cough <Isaac Hinsona 07/08/21 11:39> - *Gastrointestinal Reports abdominal pain, Reports loose stools, Reports nausea, Reports vomiting <Isaac Hinsona 07/08/21 11:39> - *Genitourinary Denies difficulty urinating, Denies painful urination <Dominga Hinson 07/08/21 11:39> - *Musculoskeletal Reports back pain, Denies joint pain <Dominga Hinson 07/08/21 11:39> - *Neurologic Reports headache(s), Reports weakness, Denies confusion, Denies seizure-like activity <Dominga Hinson 07/08/21 11:39> Meds Home Medications Medication Instructions Recorded Confirmed Type Cholecalciferol (Vitamin D3) 25 mcg PO DAILY 02/03/22 02/03/22 History [Vitamin D3] Folic Acid 1 mg PO DAILY 07/07/21 07/07/21 History Furosemide [Lasix 40mg tab] 40 mg PO DAILY 07/07/21 07/07/21 History Ibuprofen [Ibuprofen 600mg 600 mg PO Q6 02
[2021-07-08 13:00] VITALS: BP 135/78; PULSE 70; RESP 16; TEMP 36.8; O2SAT 98
[2021-07-08 16:01] VITALS: BMI 23.9
[2021-07-08 16:12] VITALS: BP 166/92; PULSE 112; RESP 16; TEMP 36.9; O2SAT 100
--- NOTE | 2021-07-08 17:07 | PC.NURSE ---
PT IS RESTING IN BED. MEDICATED PER MAR FOR NAUSEA. PT HAS TOLERATED LOW FAT DIET. LUNG SOUNDS CLEAR. ABDOMEN SOFT/TENDERNESS NOTED TO THE RIGHT AND LEFT UPPER QUADRANTS. WILL CONTINUE TO MONITOR.
[2021-07-08 19:50] VITALS: BP 146/95; PULSE 112; RESP 19; TEMP 37.2; O2SAT 96
[2021-07-08 20:00] VITALS: PULSE 110
[2021-07-09 03:53] VITALS: BP 120/69; PULSE 85; RESP 18; TEMP 37; O2SAT 98
--- NOTE | 2021-07-09 04:52 | PC.NURSE ---
pt has rested intermittently t/o shift, has complained of abdominal pain and was treated per AUG, did complain of nausea at beginning of shift, but no complaints of nausea since then, CIWA score at beginning of shift was 5, have been 1 since then
[2021-07-09 05:00] VITALS: BMI 25.9
[2021-07-09 07:35] VITALS: BP 115/73; PULSE 79; RESP 14; TEMP 36.9; O2SAT 98
[2021-07-09 07:49] LABS: Chloride 105 mmol/L (98-107); Potassium 4.3 mmoL/L (3.5-5.1); Sodium 129 mmol/L (136-145)
[2021-07-09 07:51] LABS: Alanine Aminotransferase 219 U/L (12-78); Aspartate Amino Transferase 655 U/L (14-36); Blood Urea Nitrogen 2 mg/dl (7-17); Creatinine Clearance Estimated 159 mL/min (50-200); Estimated Glomerular Filt Rate 140 ml/min (>60); GFR (African American) 170 ML/MIN (>60)
[2021-07-09 07:52] LABS: Albumin Level 2.6 g/dl (3.5-5.0); Alkaline Phosphatase 197 U/L (38-126); Anion Gap 4.3 mEq/L (5-15); Bilirubin,Total 1.6 mg/dl (0.2-1.3); Calcium 7.7 mg/dl (8.4-10.2); Carbon Dioxide 24 mmol/L (22.0-30.0); Globulin 2.7 g/dL (1.3-3.2); Glucose 105 mg/dl (74-100); Total Protein,Serum 5.3 g/dl (6.3-8.2)
[2021-07-09 07:58] LABS: Lipase 601 U/L (23-300)
--- NOTE | 2021-07-09 08:00 | PC.NURSE ---
0758-critical lipase results call by Greciasawyer cork slabs at this time, will notify of critical results
--- NOTE | 2021-07-09 08:38 | PC.NURSE ---
0838-Dr. Rondon at bedside at this time for rounds
--- NOTE | 2021-07-09 08:59 | HMH.ACPN2 ---
<Dominga Hinson - Last Filed: 07/09/21 08:59> Internal Medicine - PN: Subj *Date: 07/09/21 *Time: 08:59 Interval history: Patient states she is feeling a little bit better this morning. Her abdominal pain is more localized in the epigastric area and right upper quadrant rather than diffuse abdominal pain like she had yesterday. She is still nauseated but was able to eat breakfast. She has not vomited. Exam Vital signs and Labs for Last 24 Hours: Temp Pulse Resp BP Pulse Ox 98.4 F 79 14 115/73 98 07/09/21 07:35 07/09/21 07:35 07/09/21 07:35 07/09/21 07:35 07/09/21 07:35 Laboratory Results - last 24 hr 07/09/21 05:49: Sodium 129 L, Potassium 4.3 D, Chloride 105, Carbon Dioxide 24, Anion Gap 4.3 L, BUN 2 L D, Creatinine 0.50 L, Estimated Creat Clear 159, Estimated GFR 140, Est GFR ( Amer) 170, Glucose 105 H, Calcium 7.7 L, Total Bilirubin 1.6 H, AST 655 H*, ALT 219 H, Alkaline Phosphatase 197 H, Total Protein 5.3 L, Albumin 2.6 L, Globulin 2.7, Albumin/Globulin Ratio 1.0 L, Lipase 601 H I & O for Last 24 hours: Intake & Output 07/06/21 07/07/21 07/08/21 07/09/21 11:59 11:59 11:59 11:59 Intake Total 1093 / 1093 1904 / 1904 Output Total 0 / 0 100 / 100 Balance 1093 / 1093 1804 / 1804 Weight 130 lb 8 oz 141 lb 4.8 oz - Constitutional no acute distress - *Routine Respiratory Exam Present: CTA bilaterally - *Routine Cardiovascular Exam Present: RRR - *Routine Abdominal Exam Present: soft, normoactive bowel sounds, tenderness (Epigastric area and right upper quadrant) - *Routine Extremities Exam Absent: cyanosis, clubbing, edema - *Routine Skin Exam Present: warm. Absent: rash - *Routine Neurological Exam Present: alert, oriented X3 Assessment and Plan (1) Alcohol intoxication Status: Acute Qualifiers: Complication of substance-induced condition: with unspecified complication Qualified Code(s): F10.929 - Alcohol use, unspecified with intoxication, unspecified Category: Medical Code(s): F10.929 - Alcohol use, unspecified with intoxication, unspecified (2) Pancreatitis Status: Acute Qualifiers: Chronicity: acute Pancreatitis type: unspecified pancreatitis type Acute pancreatitis complication: no infection or necrosis Qualified Code(s): K85.90 - Acute pancreatitis without necrosis or infection, unspecified Category: Medical Code(s): K85.90 - Acute pancreatitis without necrosis or infection, unspecified (3) Cirrhosis of liver Status: Chronic Category: Medical Code(s): K74.60 - Unspecified cirrhosis of liver (4) Elevated liver enzymes Status: Acute Category: Medical Code(s): R74.8 - Abnormal levels of other serum enzymes (5) Hepatitis C Status: Chronic Qualifiers: Viral hepatitis chronicity: unspecified Hepatic coma status: without hepatic coma Qualified Code(s): B19.20 - Unspecified viral hepatitis C without hepatic coma Category: Medical Code(s): B19.20 - Unspecified viral hepatitis C without hepatic coma (6) Hypokalemia Status: Acute Category: Medical Code(s): E87.6 - Hypokalemia - Assessment and plan all Dx Assessment and Plan for all problems:: Potassium has normalized but sodium is low today. LFTs are coming down slowly, but her lipase has increased to 601. Will discuss further care with Dr. Rondon. <Bulmaro Rondon - Last Filed: 07/09/21 22:34> Internal Medicine - PN: Subj *Date: 07/09/21 *Time: 22:33 Exam Vital signs and Labs for Last 24 Hours: Temp Pulse Resp BP Pulse Ox 98.3 F 84 20 129/89 99 07/09/21 19:51 07/09/21 19:51 07/09/21 19:51 07/09/21 19:51 07/09/21 19:51 Laboratory Results - last 24 hr 07/09/21 05:49: Sodium 129 L, Potassium 4.3 D, Chloride 105, Carbon Dioxide 24, Anion Gap 4.3 L, BUN 2 L D, Creatinine 0.50 L, Estimated Creat Clear 159, Estimated GFR 140, Est GFR ( Amer) 170, Glucose 105 H, Calcium 7.7 L, Total Bilirub
[2021-07-09 16:00] VITALS: BP 128/54; PULSE 71; RESP 14; TEMP 36.9; O2SAT 98
--- NOTE | 2021-07-09 17:14 | PC.NURSE ---
1714-pt sitting up in bed with visitors at bedside, pt reports that after being medicated for pain and nausea both have eased since and she was able to eat w/out difficulty, pt had shower today and dennis well, pt continues to report c/o tenderness to right upper quadrant, vss, pt reports she has ate okay today, pt voiding per bathroom w/out difficulty, ls cta, bs +, no acute distress noted at this time, vss, will continue to monitor
[2021-07-09 19:51] VITALS: BP 129/89; PULSE 84; RESP 20; TEMP 36.8; O2SAT 99
[2021-07-10 04:00] VITALS: BP 143/98; PULSE 98; RESP 20; TEMP 37.2; O2SAT 99
[2021-07-10 05:02] VITALS: BMI 24.7
--- NOTE | 2021-07-10 06:21 | PC.NURSE ---
Pt has c/o of pain/tenderness x2 this shift in [facility], received med per MAR with relief. Pt's CIWA score's has been 1,2,0 q4H. Pt had no BM's this shift. Pt is eager to go home.
[2021-07-10 06:39] LABS: Chloride 105 mmol/L (98-107); Sodium 132 mmol/L (136-145)
[2021-07-10 06:40] LABS: Potassium 3.8 mmoL/L (3.5-5.1)
[2021-07-10 06:42] LABS: Alanine Aminotransferase 226 U/L (12-78); Alkaline Phosphatase 227 U/L (38-126); Anion Gap 3.8 mEq/L (5-15); Aspartate Amino Transferase 642 U/L (14-36); Bilirubin,Total 1.7 mg/dl (0.2-1.3); Blood Urea Nitrogen 2 mg/dl (7-17); Carbon Dioxide 27 mmol/L (22.0-30.0); Creatinine Clearance Estimated 151 mL/min (50-200); Estimated Glomerular Filt Rate 140 ml/min (>60); GFR (African American) 170 ML/MIN (>60)
[2021-07-10 06:43] LABS: Albumin Level 3.2 g/dl (3.5-5.0); Albumin/Globulin Ratio 1.1 (1.1-1.8); Calcium 8.3 mg/dl (8.4-10.2); Glucose 119 mg/dl (74-100); Lipase 341 U/L (23-300); Total Protein,Serum 6.2 g/dl (6.3-8.2)
--- NOTE | 2021-07-10 07:55 | PC.NURSE ---
pt. called out at 7:20 asking for her nurse. She stated she was leaving and that she wanted to go home. I asked her if she could wait to talk to the doctor, that he would be rounding this morning but she was insistent that she was leaving. Pt. signed her AMA form and was given her belongings.
--- NOTE | 2021-07-14 14:03 | HMH.DCSUM ---
General - General Admission date:: 07/07/21 <Bulmaro Rondon - 08/24/21 21:49> 07/07/21 <Dominga Hinson - 07/14/21 14:09> Discharge date: 07/09/21 <Dominga Hinson - 07/14/21 14:09> HPI HPI: Ms. Earl is a 36yo female with a history of cirrhosis of liver, hepatitis C, and alcohol abuse. The patient states before [place], she was drinking quite a bit and began having nausea, vomiting, and abdominal pain. She was admitted at [facility] in May and was found to have cirrhosis of the liver, hepatitis C, and Covid. She states she stayed at [facility] for a month and was just discharged in June. She apparently tried a rehab center, but did not stay. She states she has been to two doctors appointments since her discharge. She had a in the family and had two alcoholic beverages. She states immediately she began having abdominal pain, nausea, vomiting, and diarrhea. This persisted for 4 days and she presented to [facility]. She has been able to keep her medications down for the past 4 days. She is supposed to have a follow-up with a GI physician on 07/12/2021. Her potassium was low, her liver tests were all elevated. Her bilirubin was 1.7, her AST was 1250, and her ALT was 359. Her lipase was also found to be elevated at 467. Her lactic acid was elevated as well. Her alcohol level was 88. She was admitted. She was started on alcohol withdrawal protocol along with IV fluids and pain control. Of note, she did injure her right hand after punching a wall 2 days ago. <Dominga Hinson - 07/14/21 14:09> Hospital Course Hospital Course: The patient's hand x-ray showed nothing acute. Her chest x-ray also showed nothing acute. Her abdominal pelvic CT showed left greater than the right basilar opacities representing pneumonia versus atelectasis and upper abdominal adenopathy which looked reactive. There was also fatty infiltration of the liver. The patient was admitted and started on alcohol withdrawal protocol and morphine for pain. She was also started on IV fluids. Her lactic acid normalized and her LFTs did decrease slightly. She was started on a low-fat diet to see if she would tolerate this. She did not have any ascites and her swelling was much improved since her discharge from [facility]. She had been on Lasix and spironolactone as well as propranolol. She was scheduled for an outpatient GI follow-up in 1 week. By 07/09/2021 she was feeling a little bit better and her abdominal pain was more localized in the epigastric area and right upper quadrant. She was able to tolerate food and had not vomited. Her potassium normalized and her LFTs were coming down slowly. Her lipase did elevate likely due to advancing of her diet. The patient wanted to go home but was not felt medically ready. She insisted she was leaving and signed an AMA form of the hospital. <Dominga Hinson - 07/14/21 14:09> Objective Vital signs: Temp Pulse Resp BP Pulse Ox 98.9 F 98 H 20 143/98 H 99 07/10/21 04:00 07/10/21 04:00 07/10/21 04:00 07/10/21 04:00 07/10/21 04:00 <Bulmaro Rondon - 08/24/21 21:49> Temp Pulse Resp BP Pulse Ox 98.9 F 98 H 20 143/98 H 99 07/10/21 04:00 07/10/21 04:00 07/10/21 04:00 07/10/21 04:00 07/10/21 04:00 <Dominga Hinson - 07/14/21 14:09> Narrative: - Constitutional no acute distress - *Routine Respiratory Exam Present: CTA bilaterally - *Routine Cardiovascular Exam Present: RRR - *Routine Abdominal Exam Present: soft, normoactive bowel sounds, tenderness (Epigastric area and right upper quadrant) - *Routine Extremities Exam Absent: cyanosis, clubbing, edema - *Routine Skin Exam Present: warm. Absent: rash - *Routine Neurological Exam Present: alert, oriented X3 <Dominga Hinson - 07/14/21 14:09> DS: Diagnosis - Discharge Diagnosis (1) Alcohol intoxication Status: Acute (2) Pancreatitis S
== END 2021-07-10 07:36 | disposition left against medical advice (07) | DRG 440 ==
LOC: ER 16:06 → 2ND 07-08 07:23
PROVIDERS: Admitting Provider Family Medicine; Emergency Provider Emergency Medicine; PCP Family Medicine; Visit Provider Family Medicine
DX: K85.90 Acute pancreatitis without necrosis or infection, unspecified (principal); F10.10 Alcohol abuse, uncomplicated; J45.909 Unspecified asthma, uncomplicated; B19.20 Unspecified viral hepatitis C without hepatic coma; K75.9 Inflammatory liver disease, unspecified; E87.6 Hypokalemia; Z86.16 Personal history of COVID-19; F17.210 Nicotine dependence, cigarettes, uncomplicated; Z20.822 Contact with and (suspected) exposure to COVID-19
CPT/HCPCS: 36415; 71045; 73130; 74177; 80053; 80305; 81001; 82140; 82150; 83605; 83690; 84703; 85007; 85025; 85610; 87040; 93005; 96365; 96367; 96375; 96376; 99285; C9803; J2405; Q9967; U0003; U0005

== ENCOUNTER 2021-07-24 11:17 | Inpatient (IN) | payer MEDICAID, SELFPAY ==
[2021-07-24] VITALS (11 sets, daily range): BP systolic 98–133; BP diastolic 50–75; PULSE 108–123; RESP 12–20; TEMP 36.2–36.8; O2SAT 92–100; BMI 23.8; BMI 23.9; BMI 22.7
--- NOTE | 2021-07-24 11:19 | ECG_ITS ---
APPROVED REPORT Exam: Resting ECG HR:117 bpm ECG Measurements Heart Rate 117 AXES ME 136 P 73 QRSd 81 QRS 36 QT 435 T 5 QTc 505 Conclusion SINUS TACHYCARDIA WITH OCCASIONAL VENTRICULAR PREMATURE COMPLEXES POSSIBLE LEFT ATRIAL ENLARGEMENT [-0.1mV P-WAVE IN V1/V2] ST DEVIATION AND MODERATE T-WAVE ABNORMALITY, CONSIDER INFERIOR ISCHEMIA [-0.1+ mV T-WAVE IN II/aVF] ABNORMAL ECG UNCONFIRMED REPORT Electronically signed by : David Petersen MD 07/25/2021 18:00:32
--- NOTE | 2021-07-24 11:29 | HMH.EDGENADL ---
ED Disposition Clinical Impression: Hyperglycemia, FANG (acute kidney injury) Aspiration pneumonia Qualifiers: Aspiration pneumonia type: unspecified Laterality: right Lung location: upper lobe of lung Qualified Code(s): J69.0 - Pneumonitis due to inhalation of food and vomit Acute pancreatitis Qualifiers: Pancreatitis type: alcohol induced Acute pancreatitis complication: no infection or necrosis Qualified Code(s): K85.20 - Alcohol induced acute pancreatitis without necrosis or infection Alcohol intoxication Qualifiers: Complication of substance-induced condition: with unspecified complication Qualified Code(s): F10.929 - Alcohol use, unspecified with intoxication, unspecified Opiate overdose Qualifiers: Encounter type: initial encounter Injury intent: undetermined intent Qualified Code(s): T40.604A - Poisoning by unspecified narcotics, undetermined, initial encounter Altered mental status Qualifiers: Altered mental status type: coma Coma depth: [place] coma 3-8 Coma timing: at arrival to emergency department Qualified Code(s): R40.2432 - [place] coma scale score 3-8, at arrival to emergency department Disposition: Admitted As Inpatient Condition on Discharge: Serious - Critical Care Critical Care Time: Yes Attestation: On 07/24/21, the high probability of a clinically significant, sudden or life threatening deterioration of the following system(s) required my full and direct attention, intervention and personal management. The time I documented below is in addition to time spent performing reported procedures but includes the following listed in this critical care notation. Total Critical Care Time: 35 Vital system(s) involved:: Central Nervous System My critical care processes included: Assessment & monitoring of V/S, Initial and Re-exams, Data Review/Interpretation, Coordinating Care, Medication Orders and management, Documentation Medical Decision Making - Medical Records Medical records reviewed: Yes: I reviewed the patient's medical records. MR Comment: Reviewed discharge summary from recent admission 07/07/2021 through 07/09/2021. Admitted for pancreatitis, signed out AGAINST MEDICAL ADVICE after 2 days in the hospital. - Jonny Inquiry Pt receiving controlled substance: No Vital Signs: 07/24/21 11:18 07/24/21 11:20 Temperature 97.2 F L Temperature Source Rectal Pulse Rate [Left Radial] 110 H Respiratory Rate 12 Blood Pressure [Right Arm] 110/60 Blood Pressure Mean [Right Arm] 76 Blood Pressure Source [Right Arm] Automatic Cuff Blood Pressure Position [Right Arm] Sitting 02 Sat by Pulse Oximetry 92 L 96 Oxygen Delivery Method Room Air Nasal Cannula Oxygen Flow Rate (LPM) 2 - Lab Data Lab Results 07/24/21 11:25: Sodium 125 L, Potassium 3.5, Chloride 82 L, Carbon Dioxide 30, Anion Gap 16.5 H, BUN 36 H, Creatinine 1.90 H, Estimated Creat Clear 40, Estimated GFR 30 L, Est GFR ( Amer) 36 L, Glucose 375 H, Calcium 7.5 L, Total Bilirubin 3.0 H, AST 682 H*, ALT 152 H, Alkaline Phosphatase 295 H, Total Protein 7.5, Albumin 3.7, Globulin 3.8 H, Albumin/Globulin Ratio 1.0 L, Salicylates < 1.0 L, Acetaminophen < 10 L 07/24/21 11:25: WBC 33.4 H*, RBC 4.44, Hgb 12.7, Hct 39.0, MCV 88.0, MCH 28.6, MCHC 32.5, RDW 18.2 H, Plt Count 152, MPV 8.8, Neut % (Auto) 81.4 H, Lymph % (Auto) 15.1, [place] % (Auto) 3.2, Eos % (Auto) 0.0 L, Baso % (Auto) 0.3, Neut # (Auto) 27.2 H, Lymph # (Auto) 5.0 H, [place] # (Auto) 1.1 H, Eos # (Auto) 0.0, Baso # (Auto) 0.1, Total Counted 100, Neutrophils % (Manual) 82 H, Band Neutrophils % 2.0, Lymphocytes % (Manual) 12, Monocytes % (Manual) 4, Platelet Estimate Normal, RBC Morphology Normal 07/24/21 11:25: Urine Opiates Screen Negative, Urine Methadone Screen Negative, Ur Barbituates Screen Negative, Ur Phencyclidine Scrn Negative, Ur Amphetamines Screen Negative, U Benzodiazepines Scrn Negative, Urine Cocaine Screen Negative, U Marijuana (THC) Screen Negative 07/24/21 11:25: Plasma/Serum A
--- NOTE | 2021-07-24 11:36 | CT_ITS ---
PROCEDURE INFORMATION: Exam: CT Head Without Contrast Exam date and time: 07/24/2021 11:36 AM Age: 36 years old Clinical indication: Altered mental status/memory loss; Additional info: AMS TECHNIQUE: Imaging protocol: Computed tomography of the head without contrast. Radiation optimization: All CT scans at this facility use at least one of these dose optimization techniques: automated exposure control; mA and/or kV adjustment per patient size (includes targeted exams where dose is matched to clinical indication); or iterative reconstruction. COMPARISON: No relevant prior studies available. FINDINGS: Brain: Normal. No hemorrhage. Unremarkable white matter. No mass effect. Cerebral ventricles: No ventriculomegaly. Paranasal sinuses: Severe mucosal thickening and trace fluid within the right maxillary sinus, compatible with sinusitis changes. Acute sinusitis is not excluded. The right ostiomeatal unit is opacified. Mastoid air cells: Visualized mastoid air cells are well aerated. Bones/joints: Unremarkable. No acute fracture. Soft tissues: Unremarkable. IMPRESSION: 1. No evidence of an acute intracranial process. 2. Sinusitis changes as above.
--- NOTE | 2021-07-24 11:36 | XR_ITS ---
PROCEDURE INFORMATION: Exam: XR Chest Exam date and time: 07/24/2021 11:36 AM Age: 36 years old Clinical indication: Other: AMS TECHNIQUE: Imaging protocol: XR of the chest. Views: 1 view. COMPARISON: CR XR CHEST PORTABLE 07/07/2021 1:01 PM FINDINGS: Lungs: New moderate-sized focal masslike opacity projecting over the right mid/upper lung. Findings are most suggestive of pneumonia and were not previously seen on 07/07/2021. Recommend follow-up short-term to ensure resolution. Pleural spaces: Unremarkable. No pleural effusion. No pneumothorax. Heart/Mediastinum: Mild prominence of the cardiac silhouette, accentuated by the AP projection. Diaphragm: Mild elevation of the right hemidiaphragm. Bones/joints: Scoliosis. IMPRESSION: New moderate-sized focal masslike opacity projecting over the right mid/upper lung. Findings are most suggestive of pneumonia and were not previously seen on 07/07/2021. Recommend follow-up short-term to ensure resolution.
[2021-07-24 11:39] LABS: ABG Base Excess 1.2 mmol/L (-2.4-2.3); ABG HCO3 24.7 mmhg (22.0-26.0); ABG Oxygen Saturation 97 % (90-100); ABG PCO2 33.4 mmhg (35.0-45.0); ABG PH 7.49 mmol/L (7.35-7.45); ABG PO2 102.1 mmhg (80-100); ABG TCO2 25.7 mmhg (23-27)
[2021-07-24 11:41] LABS: Allen's Test Patient Unable; Oxygen 2 LPM %; Source Right Radial
[2021-07-24 11:48] LABS: Basophils # 0.1 K/mm3 (0-0.2); Basophils % 0.3 % (0.1-2.0); Hemoglobin 12.7 g/dL (12.2-16.2); Lymphocytes % 15.1 % (10-50); Mean Corpuscular HGB Conc 32.5 g/dL (31.8-35.4); Mean Corpuscular Hemoglobin 28.6 pg (27.0-31.2); Mean Platelet Volume 8.8 fl (7.4-10.4); Monocytes # 1.1 K/mm3 (0.1-1.0); Monocytes % 3.2 % (1.7-9.3); Neutrophils # 27.2 K/mm3 (1.8-7.8); Neutrophils % 81.4 % (37.0-80.0); Platelet Count 152 K/mm3 (142-424); Red Blood Count 4.44 M/mm3 (4.20-5.40); Red Cell Distribution Width 18.2 % (11.5-17.5); White Blood Count 33.4 K/mm3 (4.8-10.8)
--- NOTE | 2021-07-24 11:48 | PC.NURSE ---
pt to CT scan at this time.
[2021-07-24 11:51] LABS: Microscopic, Urine URINE MICROSCOPIC (MICROSCOPIC)
[2021-07-24 11:53] LABS: Activated Partial Thrombo Time 29.9 seconds (22.8-30.6); Chloride 82 mmol/L (98-107); INR 1.16 (0.9-1.1); MANUAL DIFFERENTIAL MANUAL DIFFERENTIAL (MANUAL DIFF); Potassium 3.5 mmoL/L (3.5-5.1); Sodium 125 mmol/L (136-145)
[2021-07-24 11:55] LABS: Blood Urea Nitrogen 36 mg/dl (7-17); Creatinine Clearance Estimated 40 mL/min (50-200); Estimated Glomerular Filt Rate 30 ml/min (>60)
[2021-07-24 11:55] LABS: Appearance,Urine CLOUDY (Clear); Blood, Urine TRACE-I (Negative); Color,Urine DK YELLOW (Yellow); Glucose,Urine (UA) Negative (Negative); Ketones,Urine TRACE (Negative); Leukocyte Esterase,Urine TRACE (Negative); Nitrate,Urine Negative (Negative); Protein,Urine TRACE (Negative); Specific Gravity, Urine >= 1.030 (1.005-1.030); Urobilinogen,Urine >=8.0 EU/dl (0.2)
[2021-07-24 11:56] LABS: Acetone, Serum (Rapid) None Detected (None Detect); Alanine Aminotransferase 152 U/L (12-78); Albumin Level 3.7 g/dl (3.5-5.0); Alkaline Phosphatase 295 U/L (38-126); Anion Gap 16.5 mEq/L (5-15); Aspartate Amino Transferase 682 U/L (14-36); Calcium 7.5 mg/dl (8.4-10.2); Carbon Dioxide 30 mmol/L (22.0-30.0); GFR (African American) 36 ML/MIN (>60); Globulin 3.8 g/dL (1.3-3.2); Glucose 375 mg/dl (74-100); Total Protein,Serum 7.5 g/dl (6.3-8.2)
[2021-07-24 11:57] LABS: Bilirubin,Urine 2+ (Negative)
[2021-07-24 11:57] LABS: Acetaminophen < 10 ug/ml (10-30); Creatine Kinase 468 U/L (30-135); Salicylate < 1.0 mg/dL (2.0-20.0)
--- NOTE | 2021-07-24 12:00 | PC.NURSE ---
pt back from CT scan
[2021-07-24 12:01] LABS: Ethyl Alcohol 531 mg/dl (0-10); Lactic Acid 5.5 mmol/L (0.7-2.1)
[2021-07-24 12:05] LABS: Barbiturates Screen,Urine Negative ng/ml (<200); CKMB Relative Index 0.4 U/L (0-4.0); Creatine Kinase MB 1.8 ng/ml (0.0-2.03)
[2021-07-24 12:06] LABS: Benzodiazepines Screen,Urine Negative ng/ml (<200)
[2021-07-24 12:07] LABS: Coronavirus 19, PCR Not Detected (NotDetected); Influenza A, PCR Not Detected (NotDetected); Influenza B, PCR Not Detected (NotDetected)
[2021-07-24 12:07] LABS: Amphetamine/Metha Screen,Urine Negative ng/ml (<1000); Methadone Screen,Urine Negative ng/ml (<300)
[2021-07-24 12:08] LABS: Cannabinoid Screen,Urine Negative ng/ml (<50); Troponin I 0.02 ng/ml (0.00-0.034)
[2021-07-24 12:09] LABS: Cocaine Screen,Urine Negative ng/ml (<300); Opiate Screen,Urine Negative ng/ml (<300)
[2021-07-24 12:10] LABS: Phencyclidine Screen,Urine Negative ng/ml (<25)
[2021-07-24 12:16] LABS: Occult Blood,Stool Negative (Negative)
[2021-07-24 12:16] LABS: Hemoglobin A1C 7.3 % (4.0-6.0)
[2021-07-24 12:18] LABS: Lymphocytes % 12 % (10-50); Monocytes % 4 % (2-9); Neutrophils % 82 % (42-76); Phosphorous 4.3 mg/dl (2.5-4.5); Total Cells Counted 100
[2021-07-24 12:19] LABS: Platelet Estimate Normal; RBC Morphology Normal
--- NOTE | 2021-07-24 12:28 | PC.NURSE ---
Changed patient's diaper as requested by patient.
[2021-07-24 12:29] LABS: Bacteria,Urine 3+ /lpf; RBC,Urine Occasional #/hpf (0-3); WBC,Urine Occasional #/hpf (0-3)
[2021-07-24 12:48] LABS: Lipase 2966 U/L (23-300)
--- NOTE | 2021-07-24 12:52 | PC.NURSE ---
albert DUGGAN education courses sales representative for service
--- NOTE | 2021-07-24 13:02 | PC.NURSE ---
service called back at this time and is speaking with Dr. Calderón
--- NOTE | 2021-07-24 13:13 | PC.NURSE ---
lab is bedside
[2021-07-24 13:44] LABS: Ammonia 14 umol/L (9-30)
--- NOTE | 2021-07-24 13:44 | PC.NURSE ---
Report called to Kavitha
--- NOTE | 2021-07-24 13:55 | PC.NURSE ---
vials from first rally bag admin fell and busted. second pulled for med mixture
--- NOTE | 2021-07-24 13:57 | PC.NURSE ---
Spoke with patient's mother about the plan of care for pt.
--- NOTE | 2021-07-24 14:53 | HMH.ACPN2 ---
Internal Medicine - PN: Subj *Date: 07/24/21 *Time: 14:53 Interval history: This 36-year-old white female is readmitted to the hospital for chronic alcoholism, alcoholic cirrhosis of the liver, acute pancreatitis with secondary diabetes. The patient was hospitalized on July 06 but signed out AMA after 2 days. She returns now apparently sicker. At the time of this exam she is still acutely intoxicated. In the emergency room they had to give 3 doses of Narcan before she became alert at all. She was admitted unresponsive. Due to her acute intoxication I cannot get an accurate history from her. Her records from her prior hospitalization are reviewed. Her emergency room records are reviewed. Exam Vital signs and Labs for Last 24 Hours: Temp Pulse Resp BP Pulse Ox 97.2 F L 117 H 17 107/61 L 100 07/24/21 14:37 07/24/21 14:37 07/24/21 14:37 07/24/21 14:37 07/24/21 14:36 Laboratory Results - last 24 hr 07/24/21 11:25: Sodium 125 L, Potassium 3.5, Chloride 82 L, Carbon Dioxide 30, Anion Gap 16.5 H, BUN 36 H, Creatinine 1.90 H, Estimated Creat Clear 40, Estimated GFR 30 L, Est GFR ( Amer) 36 L, Glucose 375 H, Calcium 7.5 L, Total Bilirubin 3.0 H, AST 682 H*, ALT 152 H, Alkaline Phosphatase 295 H, Total Protein 7.5, Albumin 3.7, Globulin 3.8 H, Albumin/Globulin Ratio 1.0 L, Salicylates < 1.0 L, Acetaminophen < 10 L 07/24/21 11:25: WBC 33.4 H*, RBC 4.44, Hgb 12.7, Hct 39.0, MCV 88.0, MCH 28.6, MCHC 32.5, RDW 18.2 H, Plt Count 152, MPV 8.8, Neut % (Auto) 81.4 H, Lymph % (Auto) 15.1, [place] % (Auto) 3.2, Eos % (Auto) 0.0 L, Baso % (Auto) 0.3, Neut # (Auto) 27.2 H, Lymph # (Auto) 5.0 H, [place] # (Auto) 1.1 H, Eos # (Auto) 0.0, Baso # (Auto) 0.1, Total Counted 100, Neutrophils % (Manual) 82 H, Band Neutrophils % 2.0, Lymphocytes % (Manual) 12, Monocytes % (Manual) 4, Platelet Estimate Normal, RBC Morphology Normal 07/24/21 11:25: Urine Opiates Screen Negative, Urine Methadone Screen Negative, Ur Barbituates Screen Negative, Ur Phencyclidine Scrn Negative, Ur Amphetamines Screen Negative, U Benzodiazepines Scrn Negative, Urine Cocaine Screen Negative, U Marijuana (THC) Screen Negative 07/24/21 11:25: Plasma/Serum Alcohol 531 H 07/24/21 11:25: PT 13.0 H, INR 1.16 H, APTT 29.9 07/24/21 11:25: Hemoglobin A1c 7.3 H 07/24/21 11:25: Lactate 5.5 H 07/24/21 11:25: Phosphorus 4.3, Magnesium 2.0, Acetone Level None detected 07/24/21 11:25: Total Creatine Kinase 468 H, CK-MB (CK-2) 1.8, CK-MB (CK-2) Rel Index 0.4, Troponin I 0.02 07/24/21 11:35: Lipase 2966 H 07/24/21 11:36: SARS-CoV-2 (PCR) Not detected, Influenza A Untype (PCR) Not detected, Influenza Type B (PCR) Not detected 07/24/21 11:36: Stool Occult Blood Negative 07/24/21 11:40: Specimen Source Right radial, O2 % 2 lpm, ABG pH 7.49 H, ABG pCO2 33.4 L, ABG pO2 102.1 H, ABG HCO3 24.7, ABG Total CO2 25.7, ABG O2 Saturation 97, ABG Base Excess 1.2, Pako Test Patient unable 07/24/21 11:40: Urine Color Dk yellow, Urine Appearance Cloudy, Urine pH 5.0, Ur Specific [place] >= 1.030, Urine Protein Trace, Urine Glucose (UA) Negative, Urine Ketones Trace, Urine Blood Trace-i, Urine Nitrate Negative, Urine Bilirubin 2+ A, Urine Urobilinogen >=8.0, Ur Leukocyte Esterase Trace, Urine RBC Occasional, Urine WBC Occasional, Ur Squamous Epith Cells None, Urine Bacteria 3+ 07/24/21 13:16: Ammonia 14 I & O for Last 24 hours: Intake & Output 07/22/21 07/23/21 07/24/21 07/25/21 11:59 11:59 11:59 11:59 Weight 135 lb 124 lb 6 oz - Constitutional no acute distress, mild distress (She appears to be acutely intoxicated.) - *Routine HEENT Exam Head: Present: normocephalic Eye: Present: EOMI, PERRL ENT: Present: mucous membranes dry - *Routine Neck Exam Absent: lymphadenopathy - *Routine Respiratory Exam Present: CTA bilaterally - *Routine Abdominal Exam Present: soft, normoactive bowel sounds, tenderness (Nonspecific), guarding - *Routine Extremities Exam Absent: cyanosis, clubbing, edema
--- NOTE | 2021-07-24 15:33 | PC.NURSE ---
Addendum entered by Kayla Goldstein RN 07/24/21 15:58: Patient not able to converse in conversation long enough to complete admission process due to alcohol intoxication. Original Note: Patient oriented X4 but drowsy and lethargic. Patient had to be aroused by calling her name several times and sternal rubbed once. Admission questions done to best of ability based on patient ability to answer.
[2021-07-24 15:40] LABS: Reflex Lactic Add Lactic Reflex
[2021-07-24 16:31] LABS: Lactic Acid Follow Up (RFLX 1) 4.9 mmol/L (0.7-2.1)
--- NOTE | 2021-07-24 16:37 | PC.NURSE ---
Dr. Johnson paged about critical value lactic 4.9. Value trending down and no new orders.
[2021-07-24 16:42] LABS: POC Glucose,Bedside 236 (70-110)
[2021-07-24 18:15] LABS: Reflex Lactic (2 hrs) Add Lactic Reflex
[2021-07-24 18:45] LABS: Lactic Acid Follow up (RFLX 2) 6.4 mmol/L (0.7-2.1)
--- NOTE | 2021-07-24 18:52 | PC.NURSE ---
Dr. Alex vazquez informed of critical value lactic at 6.4. Awaiting orders.
[2021-07-25] VITALS (8 sets, daily range): BP systolic 112–156; BP diastolic 67–88; PULSE 71–125; RESP 16–22; TEMP 36.6–37.7; O2SAT 97–100; BMI 24.4; BMI 24.3
--- NOTE | 2021-07-25 05:52 | PC.NURSE ---
Pt a+o x4 at beginning of shift. Pt has become more disoriented t/o shift. Pt highest CIWA score was 18 t/o shift. IV Ativan administered per AUG, pt states favorable results. Seizure pads in place and bed alarm on for safety.
[2021-07-25 06:25] LABS: Basophils % 0.2 % (0.1-2.0); Eosinophils % 0.2 % (0.1-12.0); Lymphocytes # 1.5 K/mm3 (0.7-4.5); Lymphocytes % 18.4 % (10-50); Mean Corpuscular HGB Conc 34.2 g/dL (31.8-35.4); Mean Corpuscular Hemoglobin 30.2 pg (27.0-31.2); Mean Corpuscular Volume 88.5 fl (81-99); Mean Platelet Volume 8.2 fl (7.4-10.4); Monocytes # 0.4 K/mm3 (0.1-1.0); Monocytes % 4.6 % (1.7-9.3); Neutrophils # 6.3 K/mm3 (1.8-7.8); Neutrophils % 76.7 % (37.0-80.0); Platelet Count 53 K/mm3 (142-424); Red Blood Count 3.34 M/mm3 (4.20-5.40); Red Cell Distribution Width 18.2 % (11.5-17.5); White Blood Count 8.2 K/mm3 (4.8-10.8)
[2021-07-25 06:26] LABS: Chloride 90 mmol/L (98-107); Potassium 3.4 mmoL/L (3.5-5.1); Sodium 125 mmol/L (136-145)
[2021-07-25 06:27] LABS: Hematocrit 29.5 % (37.0-47.0); Hemoglobin 10.1 g/dL (12.2-16.2)
[2021-07-25 06:28] LABS: Alanine Aminotransferase 114 U/L (12-78); Aspartate Amino Transferase 478 U/L (14-36); Blood Urea Nitrogen 16 mg/dl (7-17); Creatinine Clearance Estimated 149 mL/min (50-200); Estimated Glomerular Filt Rate 140 ml/min (>60); GFR (African American) 170 ML/MIN (>60)
[2021-07-25 06:29] LABS: Albumin/Globulin Ratio 0.9 (1.1-1.8); Alkaline Phosphatase 255 U/L (38-126); Anion Gap 5.4 mEq/L (5-15); Bilirubin,Total 3.1 mg/dl (0.2-1.3); Carbon Dioxide 33 mmol/L (22.0-30.0); Globulin 3.2 g/dL (1.3-3.2); Glucose 140 mg/dl (74-100); Total Protein,Serum 6.2 g/dl (6.3-8.2)
--- NOTE | 2021-07-25 06:50 | PC.NURSE ---
Pt a+o x4 at beginning of shift. Pt has become more disoriented t/o shift. Pt highest CIWA score was 18 t/o shift. IV Ativan administered per MAR, pt states favorable results. Pt has remained incontinent of her bowels t/o shift. Pt reports this has been her baseline for the past month and her significant other has been caring for her at home. Pts depends has been changed multiple times per pt request. Braga in place draining dark yellow/thad urine. Seizure pads in place and bed alarm on for safety.
[2021-07-25 06:53] LABS: Lipase 2437 U/L (23-300)
--- NOTE | 2021-07-25 08:26 | HMH.PHAVTE ---
[facility] Pharmacy VTE Monitoring - Patient Demographics Admission date: 07/24/21 Report Date: 07/25/21 Time: 08:26 Allergies/Adverse Reactions: Patient Allergies BEE VENOM Allergy (Unknown, Uncoded 03/08/21 11:23) Height: 1.57 m Weight: 60.237 kg Patient Problems: Current Active Problems Abdominal pain (Acute) Alcohol intoxication (Acute) Aspiration pneumonia (Acute) Acute pancreatitis (Acute) Opiate overdose (Acute) Hyperglycemia (Acute) FANG (acute kidney injury) (Acute) Altered mental status (Acute) - VTE Risk Labs: VTE Related Lab Results Hgb 10.1 g/dL (12.2-16.2) L D 07/25/21 05:08 Hct 29.5 % (37.0-47.0) L 07/25/21 05:08 Plt Count 53 K/mm3 (142-424) L D 07/25/21 05:08 PT 13.0 seconds (10.1-12.5) H 07/24/21 11:25 INR 1.16 (0.9-1.1) H 07/24/21 11:25 APTT 29.9 seconds (22.8-30.6) 07/24/21 11:25 BUN 16 mg/dl (7-17) D 07/25/21 05:08 Creatinine 0.50 mg/dl (0.52-1.04) L D 07/25/21 05:08 Estimated Creat Clear 149 mL/min (50-200) 07/25/21 05:08 - Prophylaxis VTE Prophylaxis Ordered?: Yes Types of VTE Prophylaxis: TEDS Knee High Location of Applied Device: Bilateral Lower Extremeties
--- NOTE | 2021-07-25 08:52 | HMH.HP ---
*Admission Date: 07/24/21 *Chief complaint: Alcohol intoxication with altered mental status *History of present illness: Ms Earl is a 36-year-old white female with a history of hepatitis C, liver cirrhosis, alcohol abuse, and pancreatitis who was brought in from her home via EMS with acute intoxication. In the emergency room she had to be given 3 doses of Narcan before she became alert at all. With evaluation CT of the head Revealed no evidence of an acute intracranial process and with sinus changes. She was felt to have taken another agent besides alcohol due to the large amount of Narcan needed to reverse the opioid. She was felt to have alcoholic pancreatitis and pneumonia, possibly aspiration, and was hyperglycemic in addition to the alcohol intoxication. She was thus admitted for further treatment. On admission white blood cell count was 33,400 and has improved to normal this a.m. ABG's on admission showed pH of 7.49 cc O2 of 33.4 PO2 of 102.1 and a bicarb of 24.7. Chemistries show sodium of 125 and potassium of 3.5. BUN was 36 and creatinine was 1.9. A1c was 7.3. LFT were all elevated. Lipase was elevated at 2065. CXR did show a new moderate sized focal mass like opacity projecting over the right mid upper lung. Findings most suggestive of pneumonia. Patient signed out AMA from [facility] 07/09/2021 after a 2 day stay. She states that she has been drinking daily. She Drank all day yesterday and admits to smoking marijuana daily. She drinks mostly Vodka. She is readmitted to the hospital for chronic alcoholism, alcoholic cirrhosis of the liver, acute pancreatitis with secondary diabetes. She appeared sicker with exam per Dr. Johnson last night.. She was still acutely intoxicated and admitted unresponsive. This a.m. patient states she has some midsternal chest discomfort making it hard for her to take a deep breath. She also describes a sore throat. She has some nausea and is trying to drink some of her clear liquid diet. She cannot recall much of yesterday. She states she having difficulty moving her legs. [facility] History Medical History: Reports:: Asthma, Diabetes Mellitus Type 2, Gall Bladder Disease, Hepatitis (C) Denies:: Diabetes Mellitus Type 1 *Have you ever received a pneumonia vaccine?: No *Have you received a flu vaccine this season?: No Other Medical History: Reports: Liver Disease Comment:: Alcohol abuse Other Surgeries: Yes: , Tubal Ligation - *Social History Smoking Status: Current every day smoker Alcohol Intake: current Alcohol Intake Frequency:: other (Vodka daily) Substance Use Type: marijuana (Daily) *Occupational Status:: unemployed, disabled Household Members: significant other, children *Travel in the last 8 weeks: None Family Hx:: Diabetes Review of Systems - Constitutional Denies fever(s) - Eyes Denies change in vision - ENT Reports pain with swallowing, Reports post nasal drip, Reports sore throat - *Cardiovascular Reports chest pain, Reports shortness of breath - *Respiratory Reports change in phlegm color, Reports cough - *Gastrointestinal Reports nausea, Reports vomiting, Denies abdominal pain, Denies constipation, Denies vomiting blood - *Genitourinary Denies difficulty urinating - *Musculoskeletal Reports limited joint movement - *Neurologic Reports abnormal speech (Soft and difficult to understand) Meds Home Medications Medication Instructions Recorded Confirmed Type Cholecalciferol (Vitamin D3) 25 mcg PO DAILY 07/07/21 07/24/21 History [Vitamin D3] Folic Acid 1 mg PO DAILY 07/07/21 07/24/21 History Furosemide [Lasix 40mg tab] 40 mg PO DAILY 07/07/21 07/24/21 History Ibuprofen [Ibuprofen 600mg 600 mg PO Q6 07/07/21 07/24/21 History Tablet] Pantoprazole Sodium 40 mg PO DAILY 07/07/21 07/25/21 History Sennosides/Docusate Sodium 1 each PO HS 07/07/21 07/24/21 History [Senna-S 8.6-50 mg Tablet] Spironolactone 50
--- NOTE | 2021-07-25 09:54 | HMH.PHAINT ---
Home med rec completed
[2021-07-25 11:45] LABS: POC Glucose,Bedside 107 (70-110)
--- NOTE | 2021-07-25 13:31 | DIET.NUTRFU ---
RD interviewed patient today to review her chewing and swallowing issues. She is currently on clear liquids with poor po intake. Only small amounts of juice consumed. She complained of nausea and some vomiting this morning. She also indicated when she eats it just does not go down. She feels its get stuck. Provider note indicated aspiration PNA, would benefit from PROJECT DESIGNER consult when appropriate to advance diet safely.Her meal pattern at home was poor consisting of EtOH (vodka) most of the day. Has diabetes secondary to pancreatitis, provided handout and reviewed but would benefit from a outpatient consult when more alert. She also does not take insulin at home, if needs upon discharge will benefit from education and administration teaching. Will follow-up with provider on POC
[2021-07-25 18:13] LABS: POC Glucose,Bedside 99 (70-110)
[2021-07-25 21:27] LABS: POC Glucose,Bedside 100 (70-110)
[2021-07-26] VITALS: BP 134/76; PULSE 92; PULSE 93; RESP 16; TEMP 36.9; O2SAT 97
[2021-07-26 04:00] VITALS: BP 135/77; PULSE 58; PULSE 89; RESP 16; TEMP 36.7; O2SAT 100
[2021-07-26 05:52] VITALS: BMI 25.7
[2021-07-26 07:00] LABS: Basophils % 0.6 % (0.1-2.0); Eosinophils # 0.1 K/mm3 (0.0-0.4); Eosinophils % 0.9 % (0.1-12.0); Hematocrit 31.7 % (37.0-47.0); Lymphocytes % 28.9 % (10-50); Mean Corpuscular HGB Conc 31.4 g/dL (31.8-35.4); Mean Corpuscular Hemoglobin 28.7 pg (27.0-31.2); Mean Corpuscular Volume 91.3 fl (81-99); Mean Platelet Volume 9.8 fl (7.4-10.4); Monocytes # 0.5 K/mm3 (0.1-1.0); Monocytes % 7.2 % (1.7-9.3); Neutrophils # 4.4 K/mm3 (1.8-7.8); Neutrophils % 62.4 % (37.0-80.0); Platelet Count 60 K/mm3 (142-424); Red Blood Count 3.47 M/mm3 (4.20-5.40); Red Cell Distribution Width 19.6 % (11.5-17.5); White Blood Count 7.1 K/mm3 (4.8-10.8)
[2021-07-26 07:05] LABS: Chloride 97 mmol/L (98-107); Potassium 3.9 mmoL/L (3.5-5.1); Sodium 127 mmol/L (136-145)
[2021-07-26 07:07] LABS: Alanine Aminotransferase 89 U/L (12-78); Aspartate Amino Transferase 366 U/L (14-36); Blood Urea Nitrogen 8 mg/dl (7-17); Creatinine Clearance Estimated 158 mL/min (50-200); Estimated Glomerular Filt Rate 140 ml/min (>60); GFR (African American) 170 ML/MIN (>60)
[2021-07-26 07:08] LABS: Albumin Level 2.8 g/dl (3.5-5.0); Albumin/Globulin Ratio 0.9 (1.1-1.8); Alkaline Phosphatase 230 U/L (38-126); Anion Gap 4.9 mEq/L (5-15); Bilirubin,Total 3.3 mg/dl (0.2-1.3); Calcium 7.1 mg/dl (8.4-10.2); Carbon Dioxide 29 mmol/L (22.0-30.0); Globulin 3.1 g/dL (1.3-3.2); Glucose 87 mg/dl (74-100); Total Protein,Serum 5.9 g/dl (6.3-8.2)
[2021-07-26 08:00] VITALS: BP 116/74; PULSE 100; PULSE 104; RESP 20; TEMP 37.1; O2SAT 100
--- NOTE | 2021-07-26 09:10 | HMH.ACPN2 ---
Internal Medicine - PN: Subj *Date: 07/26/21 *Time: 09:10 Interval history: Patient states her legs and feet hurt this morning and she slept about an hour last night. Her throat is still hurting. She is able to swallow clear liquids without difficulty. She states she will try some full liquids. She does not feel like she can swallow regular food at this point. Chest is not as sore today but it does hurt to take a deep breath. She is short of breath at times. White blood cell count is normal today with a hemoglobin of 10 hematocrit 31.7. Blood chemistries with a sodium of 127 and potassium has normalized. Renal function is good. Liver functions are slowly decreasing. Bilirubin remains elevated at 3.3. Lipase is pending. Exam Vital signs and Labs for Last 24 Hours: Temp Pulse Resp BP Pulse Ox 98.8 F 104 H 20 116/74 100 07/26/21 08:00 07/26/21 08:00 07/26/21 08:00 07/26/21 08:00 07/26/21 08:00 Laboratory Results - last 24 hr 07/25/21 11:38: POC Glucose 107 07/25/21 18:06: POC Glucose 99 07/25/21 21:14: POC Glucose 100 07/26/21 05:37: WBC 7.1, RBC 3.47 L, Hgb 10.0 L, Hct 31.7 L, MCV 91.3, MCH 28.7, MCHC 31.4 L, RDW 19.6 H, Plt Count 60 L, MPV 9.8, Neut % (Auto) 62.4, Lymph % (Auto) 28.9, [place] % (Auto) 7.2, Eos % (Auto) 0.9, Baso % (Auto) 0.6, Neut # (Auto) 4.4, Lymph # (Auto) 2.0, [place] # (Auto) 0.5, Eos # (Auto) 0.1, Baso # (Auto) 0.0 07/26/21 05:37: Sodium 127 L, Potassium 3.9, Chloride 97 L, Carbon Dioxide 29, Anion Gap 4.9 L, BUN 8 D, Creatinine 0.50 L, Estimated Creat Clear 158, Estimated GFR 140, Est GFR ( Amer) 170, Glucose 87, Calcium 7.1 L, Total Bilirubin 3.3 H, AST 366 H*, ALT 89 H, Alkaline Phosphatase 230 H, Total Protein 5.9 L, Albumin 2.8 L, Globulin 3.1, Albumin/Globulin Ratio 0.9 L I & O for Last 24 hours: Intake & Output 07/23/21 07/24/21 07/25/21 07/26/21 11:59 11:59 11:59 11:59 Intake Total 720 / 720 780 / 780 Output Total 1575 / 1575 2750 / 2750 Balance -855 / -855 -1969 / -1969 Weight 135 lb 132 lb 12.8 oz 140 lb 3.2 oz Microbiology Reports for the Last 24 Hours: Microbiology 07/24/21 11:40 Urine,Catheterized Urine Culture - Preliminary Gram Negative Rods - Constitutional no acute distress Comments: She is able to assist with exam. - *Routine Respiratory Exam Present: CTA bilaterally (Anteriorly and posteriorly) - *Routine Cardiovascular Exam Present: RRR - *Routine Abdominal Exam Present: soft, normoactive bowel sounds. Absent: tenderness, distended - *Routine Extremities Exam Present: edema (Of bilateral feet), pulses intact. Absent: calf tenderness - *Routine Neurological Exam Present: alert, oriented X3 Assessment and Plan (1) FANG (acute kidney injury) Status: Acute Category: Medical Code(s): N17.9 - Acute kidney failure, unspecified (2) Acute pancreatitis Status: Acute Qualifiers: Pancreatitis type: alcohol induced Acute pancreatitis complication: no infection or necrosis Qualified Code(s): K85.20 - Alcohol induced acute pancreatitis without necrosis or infection Category: Medical Code(s): K85.90 - Acute pancreatitis without necrosis or infection, unspecified (3) Alcohol intoxication Status: Acute Qualifiers: Complication of substance-induced condition: with unspecified complication Qualified Code(s): F10.929 - Alcohol use, unspecified with intoxication, unspecified Category: Medical Code(s): F10.929 - Alcohol use, unspecified with intoxication, unspecified (4) Altered mental status Status: Acute Qualifiers: Altered mental status type: coma Coma depth: [place] coma 3-8 Coma timing: at arrival to emergency department Qualified Code(s): R40.2432 - [place] coma scale score 3-8, at arrival to emergency department Category: Medical Code(s): R41.82 - Altered mental status, unspecified (5) Aspiration pneumonia Status: Acute Qualifier
[2021-07-26 10:02] LABS: Lipase 4251 U/L (23-300)
--- NOTE | 2021-07-26 10:06 | PC.NURSE ---
received call from lab reporting Lipase [id number]. Name and verified. Tara Cespedes APRN notified.
--- NOTE | 2021-07-26 11:34 | HMH.PTEV ---
Physical Therapy Evaluation Rehab PT IP Evaluation Start: 07/26/21 08:33 Freq: ONCE Status: Active Protocol: Document 07/26/21 11:00 REBECCA (Rec: 07/26/21 11:34 REBECCA [id number]) Subjective/History History History 36 y/o admitted thru ED for possible OD and alcohol poisoning. Pt has PMH for hep C, liver cirrhosis, pancreatitis EYOH abuse and opiod addiction. Subjective Subjective Pt reports c/o difficulty with everything. Pt states she has trouble walking b/c her knee gives out but had difficulty saying which knee, pt reports pain when walking b /c of swollen ankles (no edema ) in BLE, Pt c/o pain in abdomen due to problems w/ my liver, pancrease, stomach and kidneys Rehab PT IP Eval Objective Appearance Patient Behavior Dependent,Fearful Patient Orientation Place,Name,Birthday,Year Difficulty following instructions none Speech Pattern Appropriate Ambulation Patient Able to Ambulate Yes Ambulation Observation IP General Gait Pattern Observation Shuffling Step Ambulation Distance (feet) 0 Ambulation Assistive Device Rolling Walker Ambulation Ability Contact Guard/Hand Hold Balance Ability to Arise Able, uses arms to help Sitting Balance Steady, safe Standing Balance Steady, wide stance Dynamic Sitting Balance Ability Good Dynamic Standing Balance Ability Fair Transfers Bed Transfer Ability Supervision/Stand by,Contact Guard/Hand Hold Chair Transfer Ability Supervision/Stand by,Contact Guard/Hand Hold Sit to Stand Bed Transfer Ability Supervision/Stand by,Contact Guard/Hand Hold Sit to Stand Chair Transfer Ability Supervision/Stand by,Contact Guard/Hand Hold Rehab PT IP prob,goals,plan Problems Date of Evaluation: 07/26/21 PT IP Problems Transfers,Gait,Balance,Self care,Safety Rehab Potential Rehab Potential Poor Equipment Needs Assistive Devices Rolling / Wheeled Walker Plan PT Intervention Plan Transfers,Gait,Balance, Therapeutic Exercise PT Plan Frequency BID Duration LOS Discha
--- NOTE | 2021-07-26 11:46 | SW/DCPLANNER ---
Addendum entered by Alvina Edison 07/28/21 11:09: This patient will discharge home today and has no further needs at this time. Addendum entered by [facility] 07/27/21 10:02: Patients grandmother is now present in room and is speaking with patient regarding placement. I explained to patient and grandmother that SNF level of care is denying patient due to signing out of [facility] two weeks ago and use of alcohol/drugs. During morning rounds this patient refused drug/alcohol rehab and stated I will just return home with my grandmother . Grandmother spoke with patient regarding drug/alcohol rehab:patient is now agreeable but ONLY to [facility]. I spoke with Admissions at [facility]: beds are available and information has been faxed. I will follow up once patient information is reviewed. [facility]: phone [phone] fax [phone] Addendum entered by Alvina Edison 07/27/21 07:38: [facility] has also denied this patient. I will update patient and Dr Johnson this AM. Addendum entered by [facility] 07/26/21 15:20: Patient has requested that information be faxed to [facility] in [place]. I spoke with Nimo in Admissions and she stated that fax referral but she is unsure if she will have a bed to offer this patient. I explained to patient that if [facility] denies admission then I would not have any other options for SNF level of care. Patient expressed that she understood stating that she went to [place] in the past and is interested in returning. I will follow up with [facility] once information is reviewed. Addendum entered by Alvina Edison 07/26/21 14:29: [facility] have denied this patient. Original Note: I spoke with this patient this AM regarding discharge plans. Patient stated that she resides at home with her mother and two kids. Patient believes that she needs placement at time of discharge. I explained to patient the options of INA pending placement: must stay at least 30 days and payment is monthly income BUT $40: patient is agreeable. Patient stated that she prefers placement at [facility] in [place] (no INA beds available) or to stay local. I will follow up with Valentin Reyes regarding bed availability.
[2021-07-26 12:00] VITALS: BP 123/75; PULSE 80; PULSE 83; RESP 20; TEMP 36.9; O2SAT 100
[2021-07-26 16:00] VITALS: BP 125/76; PULSE 91; RESP 18; TEMP 37.3; O2SAT 100
[2021-07-26 16:24] LABS: POC Glucose,Bedside 147 (70-110)
[2021-07-26 16:24] LABS: POC Glucose,Bedside 95 (70-110)
[2021-07-26 16:24] LABS: POC Glucose,Bedside 193 (70-110)
[2021-07-26 17:04] LABS: POC Glucose,Bedside 103 (70-110)
[2021-07-26 20:00] VITALS: BP 121/79; PULSE 80; PULSE 88; RESP 16; TEMP 36.8; O2SAT 99
[2021-07-26 21:05] LABS: POC Glucose,Bedside 82 (70-110)
[2021-07-27] VITALS (7 sets, daily range): BP systolic 111–148; BP diastolic 61–98; PULSE 75–100; RESP 16–24; TEMP 36.9–37.2; O2SAT 96–99; BMI 24.3
[2021-07-27 05:16] LABS: POC Glucose,Bedside 87 (70-110)
--- NOTE | 2021-07-27 06:37 | CT_ITS ---
PROCEDURE INFORMATION: Exam: CT Abdomen And Pelvis Without Contrast Exam date and time: 07/27/2021 6:37 AM Age: 36 years old Clinical indication: Abdominal tenderness and nausea and vomiting; Patient HX: Abd pain, pancreatitis, nausea TECHNIQUE: Imaging protocol: Computed tomography of the abdomen and pelvis without contrast. Radiation optimization: All CT scans at this facility use at least one of these dose optimization techniques: automated exposure control; mA and/or kV adjustment per patient size (includes targeted exams where dose is matched to clinical indication); or iterative reconstruction. COMPARISON: CT ABDOMEN PELVIS W CON 07/07/2021 1:50 PM FINDINGS: Liver: The liver is diffusely low in density. Gallbladder and bile ducts: The patient is status post cholecystectomy. Pancreas: A small amount of peripancreatic edema is present. Spleen: Normal. No splenomegaly. Adrenal glands: Normal. No mass. Kidneys and ureters: Normal. No hydronephrosis. Stomach and bowel: Unremarkable. No obstruction. No mucosal thickening. Appendix: No evidence of appendicitis. Intraperitoneal space: There is a small amount of free fluid seen in the pelvis. Vasculature: Unremarkable. No abdominal aortic aneurysm. Lymph nodes: Unremarkable. No enlarged lymph nodes. Urinary bladder: Some air is noted in the bladder. Reproductive: Unremarkable as visualized. Bones/joints: Unremarkable. No acute fracture. Soft tissues: Unremarkable. IMPRESSION: 1. Small amount of peripancreatic edema consistent with known pancreatitis. Presence of necrosis is not assessed without intravenous contrast material. 2. A small amount of free fluid is seen in the peritoneum and a small amount of retroperitoneal edema is present, this all may be related to acute pancreatitis. 3. Some air is present in the bladder. This is unusual finding, correlation with recent instrumentation is recommended. If there has not been recent instrumentation then this may be related to urinary tract infection.
--- NOTE | 2021-07-27 06:40 | XR_ITS ---
PROCEDURE INFORMATION: Exam: XR Chest Exam date and time: 07/27/2021 6:40 AM Age: 36 years old Clinical indication: Cough and shortness of breath; Patient HX: Cough, follow-up TECHNIQUE: Imaging protocol: XR of the chest. Views: 2 views. COMPARISON: CR XR CHEST PORTABLE 07/24/2021 11:56 AM FINDINGS: Lungs: Unremarkable. No consolidation. Pleural spaces: Unremarkable. No pleural effusion. No pneumothorax. Heart/Mediastinum: Unremarkable. No cardiomegaly. Bones/joints: Unremarkable. IMPRESSION: No acute findings.
[2021-07-27 06:47] LABS: Basophils % 0.4 % (0.1-2.0); Eosinophils # 0.1 K/mm3 (0.0-0.4); Eosinophils % 1.1 % (0.1-12.0); Hematocrit 30.6 % (37.0-47.0); Hemoglobin 9.8 g/dL (12.2-16.2); Lymphocytes # 1.4 K/mm3 (0.7-4.5); Mean Corpuscular HGB Conc 31.9 g/dL (31.8-35.4); Mean Corpuscular Hemoglobin 28.9 pg (27.0-31.2); Mean Corpuscular Volume 90.5 fl (81-99); Monocytes # 0.4 K/mm3 (0.1-1.0); Monocytes % 8.4 % (1.7-9.3); Neutrophils # 2.3 K/mm3 (1.8-7.8); Neutrophils % 56.1 % (37.0-80.0); Red Blood Count 3.38 M/mm3 (4.20-5.40); White Blood Count 4.1 K/mm3 (4.8-10.8)
[2021-07-27 06:55] LABS: Chloride 102 mmol/L (98-107); Potassium 4.4 mmoL/L (3.5-5.1); Sodium 129 mmol/L (136-145)
[2021-07-27 06:58] LABS: Alanine Aminotransferase 81 U/L (12-78); Albumin Level 2.6 g/dl (3.5-5.0); Albumin/Globulin Ratio 0.8 (1.1-1.8); Alkaline Phosphatase 190 U/L (38-126); Anion Gap 6.4 mEq/L (5-15); Aspartate Amino Transferase 307 U/L (14-36); Bilirubin,Total 2.9 mg/dl (0.2-1.3); Blood Urea Nitrogen 3 mg/dl (7-17); Calcium 7.4 mg/dl (8.4-10.2); Carbon Dioxide 25 mmol/L (22.0-30.0); Creatinine Clearance Estimated 148 mL/min (50-200); Estimated Glomerular Filt Rate 140 ml/min (>60); GFR (African American) 170 ML/MIN (>60); Globulin 3.1 g/dL (1.3-3.2); Glucose 81 mg/dl (74-100); Total Protein,Serum 5.7 g/dl (6.3-8.2)
[2021-07-27 07:42] LABS: Lipase 2695 U/L (23-300)
[2021-07-27 07:43] LABS: Platelet Count 48 K/mm3 (142-424)
--- NOTE | 2021-07-27 07:47 | PC.NURSE ---
received call from lab ([facility]) reporting AST 307, Lipase 2695, and Plt 48. Name and verified. Dr. Johnson updated.
--- NOTE | 2021-07-27 08:16 | HMH.ACPN2 ---
Internal Medicine - PN: Subj *Date: 07/27/21 *Time: 08:16 Interval history: Patient states she feels awful today. She hurts all over and is having diffuse abdominal pain that is worse in her right upper and right lower quadrants. She has been n.p.o. for CT scan but wants to try eating something this morning. She did not rest well. Exam Vital signs and Labs for Last 24 Hours: Temp Pulse Resp BP Pulse Ox 98.8 F 75 18 133/78 96 07/27/21 04:00 07/27/21 05:46 07/27/21 05:46 07/27/21 04:00 07/27/21 05:46 Laboratory Results - last 24 hr 07/24/21 20:59: POC Glucose 193 H 07/25/21 05:08: POC Glucose 147 H 07/26/21 05:37: Lipase 4251 H 07/26/21 11:01: POC Glucose 95 07/26/21 16:50: POC Glucose 103 07/26/21 20:06: POC Glucose 82 07/27/21 05:09: POC Glucose 87 07/27/21 05:25: WBC 4.1 L D, RBC 3.38 L, Hgb 9.8 L, Hct 30.6 L, MCV 90.5, MCH 28.9, MCHC 31.9, RDW 20.0 H, Plt Count 48 L*, MPV 10.0, Neut % (Auto) 56.1, Lymph % (Auto) 34.0, [place] % (Auto) 8.4, Eos % (Auto) 1.1, Baso % (Auto) 0.4, Neut # (Auto) 2.3, Lymph # (Auto) 1.4, [place] # (Auto) 0.4, Eos # (Auto) 0.1, Baso # (Auto) 0.0 07/27/21 05:25: Sodium 129 L, Potassium 4.4, Chloride 102, Carbon Dioxide 25, Anion Gap 6.4, BUN 3 L D, Creatinine 0.50 L, Estimated Creat Clear 148, Estimated GFR 140, Est GFR ( Amer) 170, Glucose 81, Calcium 7.4 L, Total Bilirubin 2.9 H, AST 307 H*, ALT 81 H, Alkaline Phosphatase 190 H, Total Protein 5.7 L, Albumin 2.6 L, Globulin 3.1, Albumin/Globulin Ratio 0.8 L, Lipase 2695 H I & O for Last 24 hours: Intake & Output 07/24/21 07/25/21 07/26/21 07/27/21 11:59 11:59 11:59 11:59 Intake Total 720 / 720 780 / 780 1525 / 1525 Output Total 1575 / 1575 2850 / 2850 Balance -855 / -855 -2070 / -2070 1525 / 1525 Weight 135 lb 132 lb 12.8 oz 140 lb 3.2 oz 131 lb 14.4 oz Microbiology Reports for the Last 24 Hours: Microbiology 07/24/21 11:35 Blood Blood Culture - Preliminary NO GROWTH AFTER 48 HOURS 07/24/21 11:35 Blood Blood Culture - Preliminary NO GROWTH AFTER 48 HOURS 07/24/21 11:40 Urine,Catheterized Urine Culture - Final Escherichia coli - Constitutional no acute distress - *Routine Respiratory Exam Present: CTA bilaterally - *Routine Cardiovascular Exam Present: RRR - *Routine Abdominal Exam Present: soft, normoactive bowel sounds, tenderness (Diffuse but worse in the right upper and right lower quadrant) - *Routine Extremities Exam Absent: cyanosis, clubbing, edema - *Routine Skin Exam Present: warm. Absent: rash - *Routine Neurological Exam Present: alert, oriented X3 Assessment and Plan (1) FANG (acute kidney injury) Status: Acute Category: Medical Code(s): N17.9 - Acute kidney failure, unspecified (2) Acute pancreatitis Status: Acute Qualifiers: Pancreatitis type: alcohol induced Acute pancreatitis complication: no infection or necrosis Qualified Code(s): K85.20 - Alcohol induced acute pancreatitis without necrosis or infection Category: Medical Code(s): K85.90 - Acute pancreatitis without necrosis or infection, unspecified (3) Alcohol intoxication Status: Acute Qualifiers: Complication of substance-induced condition: with unspecified complication Qualified Code(s): F10.929 - Alcohol use, unspecified with intoxication, unspecified Category: Medical Code(s): F10.929 - Alcohol use, unspecified with intoxication, unspecified (4) Altered mental status Status: Acute Qualifiers: Altered mental status type: coma Coma depth: [place] coma 3-8 Coma timing: at arrival to emergency department Qualified Code(s): R40.2432 - Aroldo coma scale score 3-8, at arrival to emergency department Category: Medical Code(s): R41.82 - Altered mental status, unspecified (5) Aspiration pneumonia Status: Acute Qualifiers: Aspiration pneumonia type: unspec
--- NOTE | 2021-07-27 18:55 | PC.NURSE ---
1845: went to check on pt and her bed was empty. Pt was in the bathroom washing her hands. She explained that she needed to use the restroom so she walked. I watched pt walk back to bed without assistance and her gait was steady. She explaied that she has to go home tomorrow so she figured that she'd go ahead and start walking.
[2021-07-27 20:26] LABS: POC Glucose,Bedside 108 (70-110)
[2021-07-28] VITALS: BP 111/62; PULSE 60; PULSE 85; RESP 17; TEMP 37.3; O2SAT 99
[2021-07-28 04:00] VITALS: BP 130/78; PULSE 80; PULSE 83; RESP 16; TEMP 36.9; O2SAT 95
--- NOTE | 2021-07-28 05:08 | PC.NURSE ---
Addendum entered by Susanna Muhammad RN 07/28/21 06:16: pt did get up and walk to bathroom with standby assist at approx 0610 Original Note: pt has rested t/o shift, has not had any complaints this shift, remained on room air, has been incontinent of urine this shift
[2021-07-28 06:00] VITALS: BMI 24.3
[2021-07-28 08:00] VITALS: BP 132/97; PULSE 103; RESP 18; TEMP 36.8; O2SAT 99
--- NOTE | 2021-07-28 10:22 | HMH.ACPN2 ---
Internal Medicine - PN: Subj *Date: 07/28/21 *Time: 10:22 Interval history: The patient has improved significantly but is still quite ill. Her lipase is still elevated. Her liver functions are still elevated. Her CT of the abdomen shows some peripancreatic fluid consistent with pancreatitis. The patient is quite aware of her condition. She wanted to leave yesterday but I encouraged her to stay overnight and agreed to discharge her today. She understands the gravity of her situation. I suggested that she call her primary care physician today to arrange for follow-up within the week. I explained to her that additional alcohol use right now could be very dangerous for her and exacerbate her condition. We discussed diet. I feel if I do not discharge her today she will sign out AMA. Exam Vital signs and Labs for Last 24 Hours: Temp Pulse Resp BP Pulse Ox 98.3 F 103 H 18 132/97 H 99 07/28/21 08:00 07/28/21 08:00 07/28/21 08:00 07/28/21 08:00 07/28/21 08:00 Laboratory Results - last 24 hr 07/27/21 17:07: POC Glucose 108 Laboratory Tests 07/24/21 07/24/21 07/24/21 11:25 11:25 11:35 WBC 33.4 H* Hgb 12.7 Sodium Potassium AST 682 H* Lipase 2966 H 07/25/21 07/25/21 07/26/21 05:08 05:08 05:37 WBC 8.2 D 7.1 Hgb 10.1 L D 10.0 L Sodium Potassium AST 478 H* D Lipase 2437 H 07/26/21 07/26/21 07/27/21 05:37 05:37 05:25 WBC 4.1 L D Hgb 9.8 L Sodium Potassium AST 366 H* Lipase 4251 H 07/27/21 05:25 WBC Hgb Sodium 129 L Potassium 4.4 AST 307 H* Lipase 2695 H I & O for Last 24 hours: Intake & Output 07/25/21 07/26/21 07/27/21 07/28/21 11:59 11:59 11:59 11:59 Intake Total 720 / 720 780 / 780 1585 / 1585 360 / 360 Output Total 1575 / 1575 2850 / 2850 Balance -855 / -855 -2070 / -2070 1585 / 1585 360 / 360 Weight 132 lb 12.8 oz 140 lb 3.2 oz 131 lb 14.4 oz 131 lb 14.406 oz Microbiology Reports for the Last 24 Hours: Microbiology 07/25/21 09:00 Sputum - Expectorated Sputum Gram Stain - Final 07/25/21 09:00 Sputum - Expectorated Sputum Sputum Culture - Preliminary - *Routine HEENT Exam Head: Present: normocephalic Eye: Present: EOMI, PERRL ENT: Present: mucous membranes moist - *Routine Neck Exam Present: supple. Absent: lymphadenopathy - *Routine Respiratory Exam Present: rales (Moving air well. Some rales bilaterally.). Absent: respiratory distress - *Routine Cardiovascular Exam Present: RRR - *Routine Abdominal Exam Present: soft, normoactive bowel sounds, tenderness (Mild) - *Routine Extremities Exam Absent: cyanosis, clubbing, edema - *Routine Skin Exam Present: warm. Absent: rash - *Routine Neurological Exam Present: alert, oriented X3. Absent: altered mental status, tremors, asterixis Assessment and Plan (1) Acute pancreatitis Status: Acute Qualifiers: Pancreatitis type: alcohol induced Acute pancreatitis complication: no infection or necrosis Qualified Code(s): K85.20 - Alcohol induced acute pancreatitis without necrosis or infection Category: Medical Code(s): K85.90 - Acute pancreatitis without necrosis or infection, unspecified (2) FANG (acute kidney injury) Status: Acute Category: Medical Code(s): N17.9 - Acute kidney failure, unspecified (3) Alcohol intoxication Status: Acute Qualifiers: Complication of substance-induced condition: with unspecified complication Qualified Code(s): F10.929 - Alcohol use, unspecified with intoxication, unspecified Category: Medical Code(s): F10.929 - Alcohol use, unspecified with intoxication, unspecified (4) Altered mental status Status: Acute Qualifiers: Altered mental status type: coma Coma depth: Aroldo coma 3-8 Coma timing: at arrival to emergency department Qualified Code(s): R40.2432 - [place] coma scale score 3-8, at arrival to emergency department Category: M
--- NOTE | 2021-07-28 10:56 | HMH.PHAINT ---
Discharge counseling complete. Informed pt of new meds. purpose, how to take, and possible side effects. Pt understood and had no questions or concerns.
--- NOTE | 2021-07-28 11:30 | PC.NURSE ---
Went over dc instructions thoroughly with pt and significant other at the bedside. Instructed pt to call today to schedule appt with her primary care provider, she verbalized understanding and stated she would call as soon as she gets home.
[2021-07-28 12:11] LABS: POC Glucose,Bedside 111 (70-110)
[2021-07-28 12:11] LABS: POC Glucose,Bedside 150 (70-110)
[2021-07-28 12:11] LABS: POC Glucose,Bedside 115 (70-110)
[2021-07-28 12:11] LABS: POC Glucose,Bedside 116 (70-110)
--- NOTE | 2021-07-31 21:06 | HMH.DCSUM ---
General - General Admission date:: 07/24/21 Discharge date: 07/28/21 HPI HPI: Ms Earl is a 36-year-old white female with a history of hepatitis C, liver cirrhosis, alcohol abuse, and pancreatitis who was brought in from her home via EMS with acute intoxication. In the emergency room she had to be given 3 doses of Narcan before she became alert at all. With evaluation CT of the head Revealed no evidence of an acute intracranial process and with sinus changes. She was felt to have taken another agent besides alcohol due to the large amount of Narcan needed to reverse the opioid. She was felt to have alcoholic pancreatitis and pneumonia, possibly aspiration, and was hyperglycemic in addition to the alcohol intoxication. She was thus admitted for further treatment. On admission white blood cell count was 33,400 and has improved to normal this a.m. ABG's on admission showed pH of 7.49 cc O2 of 33.4 PO2 of 102.1 and a bicarb of 24.7. Chemistries show sodium of 125 and potassium of 3.5. BUN was 36 and creatinine was 1.9. A1c was 7.3. LFT were all elevated. Lipase was elevated at 2065. CXR did show a new moderate sized focal mass like opacity projecting over the right mid upper lung. Findings most suggestive of pneumonia. Patient signed out AMA from [facility] 07/09/2021 after a 2 day stay. She states that she has been drinking daily. She Drank all day yesterday and admits to smoking marijuana daily. She drinks mostly Vodka. She is readmitted to the hospital for chronic alcoholism, alcoholic cirrhosis of the liver, acute pancreatitis with secondary diabetes. She appeared sicker with exam per Dr. Johnson last night.. She was still acutely intoxicated and admitted unresponsive. This a.m. patient states she has some midsternal chest discomfort making it hard for her to take a deep breath. She also describes a sore throat. She has some nausea and is trying to drink some of her clear liquid diet. She cannot recall much of yesterday. She states she having difficulty moving her legs. Hospital Course Hospital Course: The patient was admitted and started on IV fluids and alcohol withdrawal protocol along with sliding scale insulin and IV antibiotics. Her diet was advanced, but she was unable to tolerate very much food. Her bilirubin, liver functions, and lipase remained elevated. She had a CT of the abdomen and pelvis along with a chest x-ray. The CT showed pancreatic edema consistent with pancreatitis and free fluid in the peritoneum with a small amount of retroperitoneal edema. There was some air in the bladder as well. Her urine culture returned positive for E. coli sensitive to Levaquin but her blood culture showed no growth. Her chest x-ray showed nothing acute. She was seen by physical therapy and they felt she would benefit from skilled short-term rehab at a rehab hospital or fdc facility but the patient was not accepted. She wanted to go home and threatened to sign out AMA. Dr. Johnson convinced her to stay one more night and by 07/28/2021, he agreed to discharge her as he felt if he did not, she would sign out AMA. He suggested she call her primary care physician and arrange for follow-up within the week and explained that any additional alcohol use can be very dangerous and exacerbate her condition. She was discharged on Levaquin and potassium and will follow up with her PCP. Objective Vital signs: Temp Pulse Resp BP Pulse Ox 98.3 F 103 H 18 132/97 H 99 07/28/21 08:00 07/28/21 08:00 07/28/21 08:00 07/28/21 08:00 07/28/21 08:00 Narrative: - Constitutional no acute distress Comments: Sitting up in the bed and trying to drink liquids - *Routine HEENT Exam Head: Present: normocephalic, atraumatic Eye: Present: PERRL. Absent: conjunctival icterus, scleral injection ENT: Present: mucous membranes dry, oropharynx clear - *Routine Neck Exam Present: supple. Absent: ca
== END 2021-07-28 11:44 | disposition home or self-care (01) | DRG 438 ==
LOC: ER 13:13 → 2ND 13:32
PROVIDERS: Nurse Practitioner Family; Admitting Provider Family Medicine; Emergency Provider Emergency Medicine; PCP Family Medicine; Visit Provider Family Medicine
DX: K85.20 Alcohol induced acute pancreatitis without necrosis or infection (principal); J69.0 Pneumonitis due to inhalation of food and vomit; N17.9 Acute kidney failure, unspecified; F10.229 Alcohol dependence with intoxication, unspecified; K70.30 Alcoholic cirrhosis of liver without ascites; E11.65 Type 2 diabetes mellitus with hyperglycemia; B19.20 Unspecified viral hepatitis C without hepatic coma; T40.601A Poisoning by unspecified narcotics, accidental (unintentional), initial encounter; F17.200 Nicotine dependence, unspecified, uncomplicated; R40.2432 Glasgow coma scale score 3-8, at arrival to emergency department
CPT/HCPCS: 36415; 51702; 70450; 71045; 71046; 74176; 80053; 80305; 80329; 81001; 82009; 82140; 82272; 82550; 82553; 82803; 82962; 83036; 83605; 83690; 83735; 84100; 84484; 85007; 85025; 85610; 85730; 87040; 87070; 87086; 87088; 87186; 87205; 93005; 94760; 96365; 96375; 97116; 97162; 99285; C9803; G0328; J1956; J2310; J2405; U0003; U0005

== ENCOUNTER 2021-12-07 12:55 | Emergency (ER) | payer MEDICAID, SELFPAY ==
[2021-12-07 12:56] VITALS: BP 129/90; PULSE 98; RESP 18; TEMP 36.9; O2SAT 98; BMI 27.4
--- NOTE | 2021-12-07 13:05 | PC.NURSE ---
ARGENTINA DUGGAN at
[2021-12-07 13:37] LABS: Basophils # 0.1 K/mm3 (0-0.2); Basophils % 1.3 % (0.1-2.0); Eosinophils # 0.1 K/mm3 (0.0-0.4); Eosinophils % 1.4 % (0.1-12.0); Hematocrit 39.2 % (37.0-47.0); Lymphocytes # 2.3 K/mm3 (0.7-4.5); Lymphocytes % 40.4 % (10-50); Mean Corpuscular HGB Conc 30.7 g/dL (31.8-35.4); Mean Corpuscular Hemoglobin 28.1 pg (27.0-31.2); Mean Corpuscular Volume 91.5 fl (81-99); Mean Platelet Volume 7.4 fl (7.4-10.4); Monocytes # 0.5 K/mm3 (0.1-1.0); Monocytes % 8.6 % (1.7-9.3); Neutrophils # 2.8 K/mm3 (1.8-7.8); Neutrophils % 48.3 % (37.0-80.0); Platelet Count 175 K/mm3 (142-424); Red Blood Count 4.28 M/mm3 (4.20-5.40); Red Cell Distribution Width 18.3 % (11.5-17.5); White Blood Count 5.7 K/mm3 (4.8-10.8)
[2021-12-07 13:45] LABS: Alanine Aminotransferase 21 U/L (12-78); Albumin Level 4.3 g/dl (3.5-5.0); Albumin/Globulin Ratio 1.3 (1.1-1.8); Alkaline Phosphatase 140 U/L (38-126); Amylase 103 U/L (30-110); Anion Gap 14.1 mEq/L (5-15); Aspartate Amino Transferase 50 U/L (14-36); Bilirubin,Total 0.4 mg/dl (0.2-1.3); Blood Urea Nitrogen 11 mg/dl (7-17); Calcium 8.4 mg/dl (8.4-10.2); Carbon Dioxide 26 mmol/L (22.0-30.0); Chloride 104 mmol/L (98-107); Creatinine Clearance Estimated 120 mL/min (50-200); Estimated Glomerular Filt Rate 95 ml/min (>60); GFR (African American) 115 ML/MIN (>60); Globulin 3.4 g/dL (1.3-3.2); Glucose 136 mg/dl (74-100); Lipase 116 U/L (23-300); Potassium 3.1 mmoL/L (3.5-5.1); Sodium 141 mmol/L (136-145); Total Protein,Serum 7.7 g/dl (6.3-8.2)
--- NOTE | 2021-12-07 13:49 | HMH.EDGENADL ---
ED Disposition Clinical Impression: Alcoholic gastritis Qualifiers: Chronicity: acute Gastritis bleeding: with bleeding Qualified Code(s): K29.21 - Alcoholic gastritis with bleeding Disposition: Home, Self-Care Condition on Discharge: Good Instructions: DI for Abdominal Pain-Adult, DI for Diarrhea and Traveler's Diarrhea -- Adult, DI for Nausea -- Adult Additional Instructions: Avoid alcohol. Protonix as prescribed. Zofran as needed for nausea and vomiting. Follow-up with primary care provider, call for appointment. Additional instructions for ABDOMINAL PAIN: See your physician as soon as possible for further evaluation. Return immediately if worsening abdominal pain, vomiting, shortness of breath, fever, vomiting of blood or abdominal distention. Prescriptions: Pantoprazole Sodium [Protonix 40mg tablet] 40 mg PO DAILY #15 tab [facility] Status[id number] Ondansetron [Zofran 4mg ODT] 4 mg PO TIDP PRN #10 tab PRN Reason: Nausea And Vomiting Transmission Status: [id number] Referrals: Sander Gutiérrez JR, MD [Primary Care Provider] - - Critical Care Critical Care Time: No Attestation: On 12/07/21, the high probability of a clinically significant, sudden or life threatening deterioration of the following system(s) required my full and direct attention, intervention and personal management. The time I documented below is in addition to time spent performing reported procedures but includes the following listed in this critical care notation. Medical Decision Making - Jonny Inquiry Pt receiving controlled substance: No Vital Signs: 12/07/21 12:56 12/07/21 14:09 12/07/21 17:25 Temperature 98.4 F 98.1 F Temperature Source Oral Pulse Rate 90 81 Pulse Rate [Right Radial] 98 H Respiratory Rate 18 16 Blood Pressure 130/90 117/66 Blood Pressure [Right Arm] 129/90 Blood Pressure Mean 99 Blood Pressure Mean [Right Arm] 103 Blood Pressure Source [Right Arm] Automatic Cuff Blood Pressure Position [Right Arm] Sitting 02 Sat by Pulse Oximetry 98 98 Oxygen Delivery Method Room Air - Lab Data Lab Results 12/07/21 13:30: WBC 5.7, RBC 4.28, Hgb 12.0 L, Hct 39.2, MCV 91.5, MCH 28.1, MCHC 30.7 L, RDW 18.3 H, Plt Count 175, MPV 7.4, Neut % (Auto) 48.3, Lymph % (Auto) 40.4, [place] % (Auto) 8.6, Eos % (Auto) 1.4, Baso % (Auto) 1.3, Neut # (Auto) 2.8, Lymph # (Auto) 2.3, [place] # (Auto) 0.5, Eos # (Auto) 0.1, Baso # (Auto) 0.1 12/07/21 13:30: Sodium 141, Potassium 3.1 L, Chloride 104, Carbon Dioxide 26, Anion Gap 14.1, BUN 11, Creatinine 0.70, Estimated Creat Clear 120, Estimated GFR 95, Est GFR ( Amer) 115, Glucose 136 H, Calcium 8.4, Total Bilirubin 0.4, AST 50 H, ALT 21, Alkaline Phosphatase 140 H, Total Protein 7.7 D, Albumin 4.3, Globulin 3.4 H, Albumin/Globulin Ratio 1.3, Amylase 103, Lipase 116 12/07/21 13:30: Troponin I < 0.01 12/07/21 13:30: Serum HCG, Qual Negative 12/07/21 13:30: Plasma/Serum Alcohol 121 H 12/07/21 13:54: POC Glucose 122 H 12/07/21 14:55: Urine Opiates Screen Negative, Urine Methadone Screen Negative, Ur Barbituates Screen Negative, Ur Phencyclidine Scrn Negative, Ur Amphetamines Screen Negative, U Benzodiazepines Scrn Negative, Urine Cocaine Screen Negative, U Marijuana (THC) Screen Positive H 12/07/21 14:57: Urine Color Yellow, Urine Appearance Clear, Urine pH 6.5, Ur Specific [place] 1.010, Urine Protein Negative, Urine Glucose (UA) Negative, Urine Ketones Negative, Urine Blood Negative, Urine Nitrate Negative, Urine Bilirubin Negative, Urine Urobilinogen 0.2, Ur Leukocyte Esterase Negative, Urine RBC 10-20, Urine WBC Occasional, Ur Squamous Epith Cells 3-5, Urine Bacteria Trace Result diagrams: 12/07/21 13:30 12/07/21 13:30 Orders (Tests/Meds): ED MEDICATIONS Discontinued Medications Generic Name Dose Route Start Last Admin Trade Name Freq PRN Reason Stop Dose Admin Sodium Chloride 1,000 mls
--- NOTE | 2021-12-07 13:52 | CT_ITS ---
FINAL REPORT CLINICAL HISTORY: abdo pain, pt states that she has been vomiting blood for the past 3 days. COMPARISON: July 27, 2021 FINDINGS: CT OF THE ABDOMEN AND PELVIS WITH CONTRAST Axial CT images of the abdomen and pelvis were obtained after the administration of IV contrast. Coronal reformatted images were also obtained and reviewed.This study was performed with techniques to keep radiation doses as low as reasonably achievable (ALARA). Individualized dose reduction techniques using automated exposure control or adjustment of mA and/or kV according to the patient's size were employed. Abdomen: There is mild scarring or atelectasis in the lung bases. The heart is normal in size. The liver has an unremarkable appearance, without evidence of mass or biliary ductal dilatation. The gallbladder surgically absent. The spleen is unremarkable. No adrenal mass is present. The pancreas has an unremarkable appearance. The kidneys are normal, without evidence of mass or hydronephrosis. The aorta is normal in caliber. No mass or abnormal fluid collection is seen. There is improved edema/fat stranding in the abdomen since the prior. There is a small umbilical hernia containing fat. There are several stable mildly enlarged gastrohepatic ligament and celiac lymph nodes and portacaval, nonspecific and favor reactive. Pelvis: The appendix is normal. The urinary bladder is unremarkable. No inflammatory process is seen. There are new right ovarian cysts measuring up to 3.5 cm. There is no evidence of bowel obstruction. IMPRESSION: Improved pancreatitis. New right ovarian cysts up to 3.5 cm. Consider follow-up pelvic ultrasound in 6-8 weeks. Reviewed, Interpreted and Dictated by Kj Delcid III, MD Transcribed by Sunita Schmid Authenticated and [facility]
--- NOTE | 2021-12-07 13:56 | PC.NURSE ---
Notified lab that a serum had been added to orders.
[2021-12-07 14:01] LABS: POC Glucose,Bedside 122 (70-110)
[2021-12-07 14:09] VITALS: BP 130/90; PULSE 90; O2SAT 98
--- NOTE | 2021-12-07 14:10 | PC.NURSE ---
warm blanket and tissues given to pt at this time.
[2021-12-07 14:13] LABS: HCG Qualitative, Serum Negative (Negative)
[2021-12-07 14:27] LABS: Troponin I < 0.01 ng/ml (0.00-0.034)
--- NOTE | 2021-12-07 14:35 | PC.NURSE ---
Pt to radiology
--- NOTE | 2021-12-07 14:38 | PC.NURSE ---
pt back from radiology
[2021-12-07 14:40] LABS: Ethyl Alcohol 121 mg/dl (0-10)
--- NOTE | 2021-12-07 14:47 | PC.NURSE ---
ambulatory to the restroom at this time with no complications. pt trying to provide ua and stool sample
--- NOTE | 2021-12-07 15:04 | PC.NURSE ---
stool and ua sent to the lab
[2021-12-07 15:16] LABS: Adenovirus F 40/41, stool Not Detected (NotDetected); Astrovirus Not Detected (NotDetected); Campylobacter Not Detected (NotDetected); Clostridium Difficile A/B, PCR Not Detected (NotDetected); Cryptosporidium Not Detected (NotDetected); Cyclospora Cayetanesis Not Detected (NotDetected); Entamoeba histolytica Not Detected (NotDetected); Enteroaggregative E coli Not Detected (NotDetected); Enteropathogenic E coli Not Detected (NotDetected); Enterotoxigenic E coli Not Detected (NotDetected); Giardia lamblia Not Detected (NotDetected); Plesimonas Shigalloides, PCR Not Detected (NotDetected); Rotavirus A Not Detected (NotDetected); Salmonella, PCR Not Detected (NotDetected); Sapovirus Not Detected (NotDetected); Shiga-like toxin E coli Not Detected (NotDetected); Shigella Enterovasive E coli Not Detected (NotDetected); Vibrio Cholerae Not Detected (NotDetected); Vibrio, PCR Not Detected (NotDetected); Yersinia Entercolitica, PCR Not Detected (NotDetected)
[2021-12-07 15:16] LABS: Microscopic, Urine URINE MICROSCOPIC (MICROSCOPIC)
[2021-12-07 15:20] LABS: Appearance,Urine CLEAR (Clear); Bilirubin,Urine Negative (Negative); Blood, Urine Negative (Negative); Color,Urine YELLOW (Yellow); Glucose,Urine (UA) Negative (Negative); Ketones,Urine Negative (Negative); Leukocyte Esterase,Urine Negative (Negative); Nitrate,Urine Negative (Negative); PH,Urine 6.5 (5.0-8.5); Protein,Urine Negative (Negative); Urobilinogen,Urine 0.2 EU/dl (0.2)
[2021-12-07 15:35] LABS: Benzodiazepines Screen,Urine Negative ng/ml (<200)
[2021-12-07 15:36] LABS: Bacteria,Urine Trace /lpf; WBC,Urine Occasional #/hpf (0-3)
[2021-12-07 15:36] LABS: Amphetamine/Metha Screen,Urine Negative ng/ml (<1000)
[2021-12-07 15:37] LABS: Barbiturates Screen,Urine Negative ng/ml (<200); Cocaine Screen,Urine Negative ng/ml (<300)
[2021-12-07 15:38] LABS: Methadone Screen,Urine Negative ng/ml (<300)
[2021-12-07 15:39] LABS: Cannabinoid Screen,Urine Positive ng/ml (<50)
[2021-12-07 15:42] LABS: Phencyclidine Screen,Urine Negative ng/ml (<25)
[2021-12-07 15:43] LABS: Opiate Screen,Urine Negative ng/ml (<300)
--- NOTE | 2021-12-07 16:04 | PC.NURSE ---
rounded on pt at this time, pt states no needs at this time. Updated pt that CT scan is resulted in computer ER just has to view all of pt results and then will be back in to update her on her test results.
--- NOTE | 2021-12-07 16:55 | ECG_ITS ---
APPROVED REPORT Exam: Resting ECG HR:61 bpm ECG Measurements Heart Rate 61 AXES [place] 155 P 40 QRSd 88 QRS 38 QT 465 T 40 QTc 469 Conclusion SINUS RHYTHM NORMAL ECG UNCONFIRMED REPORT Electronically signed by : David Petersen MD 12/08/2021 17:41:18
--- NOTE | 2021-12-07 17:14 | PC.NURSE ---
ER MD at speaking with patient regarding update on POC
[2021-12-07 17:25] VITALS: BP 117/66; PULSE 81; RESP 16; TEMP 36.7; O2SAT 98
[2021-12-07 18:05] LABS: Norovirus Detected (NotDetected)
== END 2021-12-07 17:26 | disposition home or self-care (01) ==
PROVIDERS: Emergency Provider Emergency Medicine; PCP Family Medicine
DX: K29.21 Alcoholic gastritis with bleeding (principal); E11.9 Type 2 diabetes mellitus without complications; Z79.84 Long term (current) use of oral hypoglycemic drugs; B19.20 Unspecified viral hepatitis C without hepatic coma; F17.210 Nicotine dependence, cigarettes, uncomplicated
CPT/HCPCS: 74177; 80053; 80305; 81001; 82150; 82962; 83690; 84484; 84703; 85025; 87506; 93005; 96361; 96374; 96375; 99284; J2405; Q9967

== ENCOUNTER 2021-12-24 00:04 | Emergency (ER) | payer MEDICAID, SELFPAY ==
--- NOTE | 2021-12-24 00:04 | ECG_ITS ---
APPROVED REPORT Exam: Resting ECG HR:122 bpm ECG Measurements Heart Rate 122 AXES [place] 136 P 89 QRSd 74 QRS 73 QT 337 T 79 QTc 410 Conclusion SINUS TACHYCARDIA ABNORMAL RHYTHM ECG UNCONFIRMED REPORT Electronically signed by : David Petersen MD 12/24/2021 21:38:48
[2021-12-24 00:12] VITALS: BP 123/87; PULSE 120; RESP 18; TEMP 36.9; O2SAT 97; BMI 28.3
--- NOTE | 2021-12-24 00:21 | XR_ITS ---
PROCEDURE INFORMATION: Exam: XR Chest Exam date and time: 12/24/2021 12:28 AM Age: 36 years old Clinical indication: Cough and shortness of breath; Additional info: Cough, SOA TECHNIQUE: Imaging protocol: Radiologic exam of the chest. Views: 2 views. COMPARISON: CR XR CHEST 2V 07/27/2021 7:30 AM FINDINGS: Lungs: Unremarkable. No consolidation. Pleural spaces: Unremarkable. No pleural effusion. No pneumothorax. Heart/Mediastinum: Unremarkable. No cardiomegaly. Bones/joints: Unremarkable. IMPRESSION: No acute cardiopulmonary abnormality.
[2021-12-24 00:25] LABS: Coronavirus 19, PCR Not Detected (NotDetected); Influenza A, PCR Not Detected (NotDetected); Influenza B, PCR Not Detected (NotDetected)
[2021-12-24 00:27] LABS: Basophils # 0.1 K/mm3 (0-0.2); Basophils % 0.9 % (0.1-2.0); Eosinophils # 0.1 K/mm3 (0.0-0.4); Eosinophils % 1.2 % (0.1-12.0); Hematocrit 46.4 % (37.0-47.0); Hemoglobin 15.8 g/dL (12.2-16.2); Lymphocytes # 1.8 K/mm3 (0.7-4.5); Lymphocytes % 25.9 % (10-50); Mean Corpuscular HGB Conc 34.1 g/dL (31.8-35.4); Mean Corpuscular Hemoglobin 29.5 pg (27.0-31.2); Mean Corpuscular Volume 86.4 fl (81-99); Mean Platelet Volume 7.2 fl (7.4-10.4); Monocytes # 0.4 K/mm3 (0.1-1.0); Monocytes % 5.9 % (1.7-9.3); Neutrophils # 4.5 K/mm3 (1.8-7.8); Neutrophils % 66.1 % (37.0-80.0); Platelet Count 280 K/mm3 (142-424); Red Blood Count 5.37 M/mm3 (4.20-5.40); Red Cell Distribution Width 16.7 % (11.5-17.5); White Blood Count 6.7 K/mm3 (4.8-10.8)
[2021-12-24 00:30] LABS: Chloride 98 mmol/L (98-107); Potassium 4.2 mmoL/L (3.5-5.1); Sodium 137 mmol/L (136-145)
[2021-12-24 00:32] LABS: Alanine Aminotransferase 36 U/L (12-78); Aspartate Amino Transferase 79 U/L (14-36); Blood Urea Nitrogen 6 mg/dl (7-17); Creatinine Clearance Estimated 77 mL/min (50-200); Estimated Glomerular Filt Rate 57 ml/min (>60); GFR (African American) 68 ML/MIN (>60)
[2021-12-24 00:33] LABS: Albumin Level 5.6 g/dl (3.5-5.0); Albumin/Globulin Ratio 1.2 (1.1-1.8); Alkaline Phosphatase 182 U/L (38-126); Anion Gap 22.2 mEq/L (5-15); Bilirubin,Total 1.8 mg/dl (0.2-1.3); Calcium 10.3 mg/dl (8.4-10.2); Carbon Dioxide 21 mmol/L (22.0-30.0); Globulin 4.8 g/dL (1.3-3.2); Glucose 200 mg/dl (74-100); Total Protein,Serum 10.4 g/dl (6.3-8.2)
--- NOTE | 2021-12-24 00:50 | CT_ITS ---
PROCEDURE INFORMATION: Exam: CTA Chest With Contrast Exam date and time: 12/24/2021 1:36 AM Age: 36 years old Clinical indication: Shortness of breath; Additional info: SOA TECHNIQUE: Imaging protocol: Computed tomographic angiography of the chest with contrast. 3D rendering (Not supervised by radiologist): MIP and/or 3D reconstructed images were created by the technologist. Radiation optimization: All CT scans at this facility use at least one of these dose optimization techniques: automated exposure control; mA and/or kV adjustment per patient size (includes targeted exams where dose is matched to clinical indication); or iterative reconstruction. Contrast material: ISOVUE 370; Contrast volume: 70 ml; Contrast route: INTRAVENOUS (IV); COMPARISON: CR XR CHEST 2V 12/24/2021 12:28 AM FINDINGS: Pulmonary arteries: Normal. No pulmonary emboli. Aorta: Unremarkable. No aortic aneurysm. No aortic dissection. Lungs: Unremarkable. No consolidation. No masses. Pleural spaces: Unremarkable. No pneumothorax. No pleural effusion. Heart: Unremarkable. No cardiomegaly. No pericardial effusion. Lymph nodes: Unremarkable. No enlarged lymph nodes. Stomach and bowel: Somewhat prominent gastric mucosal enhancement. No gastric mural thickening. Bones/joints: Upper thoracic dextroscoliosis is exaggerated from prior plain film. No fracture or bony destructive change. Soft tissues: Unremarkable. IMPRESSION: 1. No findings of acute pulmonary embolism. Clear lung parenchyma. 2. Somewhat prominent gastric mucosal enhancement may be physiologic, but correlate with any symptoms of gastritis.
[2021-12-24 00:53] LABS: Troponin I < 0.01 ng/ml (0.00-0.034)
[2021-12-24 00:57] LABS: Erythrocyte Sedimentation Rate 7 mm/hr (0-20)
[2021-12-24 01:08] LABS: Procalcitonin 0.049 ng/mL (0.0-2.0)
[2021-12-24 01:12] LABS: C-Reactive Protein < 0.3 mg/L (0-4)
--- NOTE | 2021-12-24 02:24 | HMH.EDSOB ---
ED Disposition Clinical Impression: Acute viral syndrome Type 2 diabetes mellitus Qualifiers: Diabetes mellitus long-term insulin use: unspecified long-term insulin use status Diabetes mellitus complication status: with other specified complication Qualified Code(s): E11.69 - Type 2 diabetes mellitus with other specified complication Disposition: Home, Self-Care Condition on Discharge: Fair Instructions: DI for Shortness of Breath Additional Instructions: fluids and no nsaif and call pcp for close follow up Referrals: Sander Gutiérrez JR, MD [Primary Care Provider] - - Critical Care Critical Care Time: No Attestation: On 12/24/21, the high probability of a clinically significant, sudden or life threatening deterioration of the following system(s) required my full and direct attention, intervention and personal management. The time I documented below is in addition to time spent performing reported procedures but includes the following listed in this critical care notation. Medical Decision Making - Medical Records Medical records reviewed: Yes: I reviewed the patient's medical records. - Jonny Inquiry Pt receiving controlled substance: No Vital Signs: 12/24/21 00:12 Temperature 98.5 F Temperature Source Oral Pulse Rate [Apical] 120 H Respiratory Rate 18 Blood Pressure [Right Arm] 123/87 Blood Pressure Mean [Right Arm] 99 Blood Pressure Source [Right Arm] Automatic Cuff Blood Pressure Position [Right Arm] Sitting 02 Sat by Pulse Oximetry 97 Oxygen Delivery Method Room Air - Lab Data Lab results reviewed: Yes: I reviewed the patient's lab results. Lab Results 12/24/21 00:15: WBC 6.7, RBC 5.37, Hgb 15.8, Hct 46.4, MCV 86.4, MCH 29.5, MCHC 34.1, RDW 16.7, Plt Count 280, MPV 7.2 L, Neut % (Auto) 66.1, Lymph % (Auto) 25.9, [place] % (Auto) 5.9, Eos % (Auto) 1.2, Baso % (Auto) 0.9, Neut # (Auto) 4.5, Lymph # (Auto) 1.8, [place] # (Auto) 0.4, Eos # (Auto) 0.1, Baso # (Auto) 0.1, ESR 7 12/24/21 00:15: Sodium 137, Potassium 4.2, Chloride 98, Carbon Dioxide 21 L, Anion Gap 22.2 H, BUN 6 L, Creatinine 1.10 H, Estimated Creat Clear 77, Estimated GFR 57 L, Est GFR ( Amer) 68, Glucose 200 H, Calcium 10.3 H, Total Bilirubin 1.8 H, AST 79 H, ALT 36, Alkaline Phosphatase 182 H, Troponin I < 0.01, C-Reactive Protein < 0.3, Total Protein 10.4 H D, Albumin 5.6 H, Globulin 4.8 H, Albumin/Globulin Ratio 1.2 12/24/21 00:15: SARS-CoV-2 (PCR) Not detected, Influenza A Untype (PCR) Not detected, Influenza Type B (PCR) Not detected 12/24/21 00:15: Procalcitonin 0.049 12/24/21 00:15: Acetone Level None detected Result diagrams: 12/24/21 00:15 12/24/21 00:15 Orders (Tests/Meds): ED MEDICATIONS Generic Name Dose Route Start Last Admin Trade Name Freq PRN Reason Stop Dose Admin Sodium Chloride 1,000 mls @ 999 mls/hr 12/24/21 00:30 12/24/21 00:23 Sod Chlor 0.9% 1000ml Bag IV 12/24/21 01:30 999 mls/hr .Q1H1M LANDON Administration Sodium Chloride 1,000 mls @ 999 mls/hr 12/24/21 02:45 Sod Chlor 0.9% 1000ml Bag IV 12/24/21 03:45 .Q1H1M LANDON Discontinued Medications Generic Name Dose Route Start Last Admin Trade Name Freq PRN Reason Stop Dose Admin Iopamidol 70 ml 12/24/21 01:49 12/24/21 01:50 Iopamidol-370 (76%);100ml Bottle IV 12/24/21 01:50 70 ml ONCE ONE Administration Ondansetron HCl 4 mg 12/24/21 00:22 12/24/21 00:23 Ondansetron 4mg/2ml Vial IV 12/24/21 00:23 4 mg ONCE ONE Administration Ondansetron HCl 4 mg 12/24/21 00:22 12/24/21 00:24 Ondansetron 4mg/2ml Vial IV 12/24/21 00:23 Not Given ONCE ONE Promethazine HCl 25 mg 12/24/21 00:52 12/24/21 00:54 Promethazine Hcl 25mg/Ml 1ml Vial IV 12/24/21 00:53 25 mg ONCE ONE Administration Sodium Chloride 25 ml 12/24/21 00:52 12/24/21 02:35 Sodium Chloride 0.9% 25ml Bag IV 12/24/21 00:53 25 ml ONCE ONE Administration Sodium Chloride 40 ml 12/24/21 01:49 12/24/21 01:50 0.9 % Sodium Chlori
[2021-12-24 02:32] LABS: Acetone, Serum (Rapid) None Detected (None Detect)
[2021-12-24 02:47] LABS: Amylase 120 U/L (30-110); Lipase 125 U/L (23-300)
[2021-12-24 03:12] VITALS: BP 132/92; PULSE 70; RESP 18; TEMP 36.8; O2SAT 100
== END 2021-12-24 03:15 | disposition home or self-care (01) ==
PROVIDERS: Emergency Provider Emergency Medicine; PCP Family Medicine
DX: B34.9 Viral infection, unspecified (principal); E11.9 Type 2 diabetes mellitus without complications; R06.9 Unspecified abnormalities of breathing; R06.00 Dyspnea, unspecified; R11.2 Nausea with vomiting, unspecified; Z20.822 Contact with and (suspected) exposure to COVID-19; J45.909 Unspecified asthma, uncomplicated; Z72.0 Tobacco use; R50.9 Fever, unspecified; R07.9 Chest pain, unspecified
CPT/HCPCS: 71046; 71275; 80053; 82009; 82150; 83690; 84145; 84484; 85025; 85651; 86140; 93005; 96361; 96374; 96375; 99285; C9803; J2405; Q9967; U0003; U0005

== ENCOUNTER 2022-03-10 11:46 | Observation (INO) | payer MEDICAID, SELFPAY ==
[2022-03-10 11:47] VITALS: BP 135/97; PULSE 147; RESP 24; TEMP 37.1; O2SAT 97; BMI 26.4
--- NOTE | 2022-03-10 11:55 | CT_ITS ---
FINAL REPORT CLINICAL HISTORY: diffuse abdominal pain, intractable vomiting COMPARISON: December 07, 2021 FINDINGS: CT OF THE ABDOMEN AND PELVIS WITH CONTRAST Axial CT images of the abdomen and pelvis were obtained after the administration of intravenous contrast. Coronal reformatted images were also obtained and reviewed.This study was performed with techniques to keep radiation doses as low as reasonably achievable (ALARA). Individualized dose reduction techniques using automated exposure control or adjustment of mA and/or kV according to the patient's size were employed. Abdomen: There is mild bibasilar atelectasis or scarring.. The heart is normal in size. The liver has an unremarkable appearance, without evidence of mass or biliary ductal dilatation. There is evidence of cholecystectomy. The spleen is unremarkable. No adrenal mass is present. The pancreas has an unremarkable appearance. The kidneys are normal, without evidence of mass or hydronephrosis. The aorta is normal in caliber. There are multiple mildly enlarged upper abdominal lymph nodes of uncertain significance that are stable from the prior exam and could be reactive. There is a small umbilical hernia containing fat only. Pelvis: The appendix is normal. The urinary bladder is unremarkable. There is no evidence of mass or adenopathy. There is diffuse colon wall thickening consistent with colitis. There is prominence of the vaginal cuff of uncertain significance with adjacent edema or inflammation. There is a small cyst in the right ovary. There is no evidence of bowel obstruction. IMPRESSION: Diffuse colon wall thickening consistent with colitis. Prominence of the vaginal cuff with adjacent edema or inflammation of uncertain significance. Small right ovarian cyst. Mildly enlarged but stable upper abdominal lymph nodes of uncertain significance. Reviewed, Interpreted and Dictated by Kj Delcid III, MD Transcribed by Sam Kirk Authenticated and [facility]
--- NOTE | 2022-03-10 12:00 | HMH.EDGENADL ---
Discharge Plan Disposition Patient Disposition: Admitted As Inpatient Condition: Fair Prescriptions Prescriptions: No Action baclofen 5 MG tablet 5 mg PO TID potassium chloride 10 MEQ tablet extended release 10 meq PO DAILY Qty: 30 1RF levofloxacin 500 MG tablet 500 mg PO DAILY Qty: 7 0RF thiamine mononitrate (vit B1) 100 MG tablet 100 mg PO DAILY Qty: 90 3RF pantoprazole 40 MG tablet,delayed release (DR/EC) 40 mg PO DAILY Qty: 15 0RF ondansetron 4 MG tablet,disintegrating 4 mg PO TIDP PRN (Reason: Nausea And Vomiting) Qty: 10 0RF furosemide 40 MG tablet 40 mg PO DAILY sennosides-docusate sodium 1 EACH tablet 1 each PO HS pantoprazole 40 MG tablet,delayed release (DR/EC) 40 mg PO DAILY folic acid 1 MG tablet 1 mg PO DAILY ibuprofen 600 MG tablet 600 mg PO Q6 spironolactone 50 MG tablet 50 mg PO DAILY cholecalciferol (vitamin D3) 25 MCG tablet 25 mcg PO DAILY guaifenesin 600 MG tablet extended release 12hr 600 mg PO BID propranolol 10 MG tablet 10 mg PO BID Referrals Follow up/Referrals: Sander Gutiérrez JR, MD [Primary Care Provider] - See instructions Clinical Impressions Clinical Impression: Intractable vomiting Discharge ED Provider: Fredo Lozada General Adult HPI General Stated complaint: Vomitting, dehydrated Time Seen by Provider: 03/10/22 12:01 History of Present Illness HPI narrative: Patient is a 36-year-old female with past medical history of chronic pancreatitis, hepatitis C, EtOH abuse, cirrhosis who presents emergency department for evaluation of abdominal pain and vomiting. Onset was acute, over the last 24 hours patient has had diffuse poorly localized abdominal pain with associated nonbilious vomiting. Most recent vomitus has had scant blood in it. Patient states she is not insulin-dependent. Decreased urine output. No other acute complaints at this time. Related Data Home Medications Medication Instructions Recorded Confirmed cholecalciferol (vitamin D3) 25 25 mcg PO DAILY Supplement 07/07/21 07/24/21 mcg (1,000 unit) tablet folic acid 1 mg tablet 1 mg PO DAILY Supplement 07/07/21 07/24/21 furosemide 40 mg tablet 40 mg PO DAILY Edema 07/07/21 07/24/21 guaifenesin 600 mg tablet, 600 mg PO BID Cough/cold 07/07/21 07/24/21 extended release 12 hr ibuprofen 600 mg tablet 600 mg PO Q6 Pain 07/07/21 07/24/21 pantoprazole 40 mg tablet,delayed 40 mg PO DAILY acid reflux 07/07/21 07/25/21 release sennosides 8.6 mg-docusate sodium 1 each PO HS UNKNOWN 07/07/21 07/24/21 50 mg tablet spironolactone 50 mg tablet 50 mg PO DAILY Edema 07/07/21 07/24/21 propranolol 10 mg tablet 10 mg PO BID Hypertension 07/08/21 07/24/21 baclofen 5 mg tablet 5 mg PO TID Tremors 07/25/21 07/25/21 Previous Rx's Medication Instructions Recorded levofloxacin 500 mg tablet 500 mg PO DAILY #7 tabs 07/28/21 potassium chloride 10 mEq 10 meq PO DAILY #30 tabs 07/28/21 tablet,extended release thiamine mononitrate (vit B1) 100 100 mg PO DAILY #90 tabs 07/28/21 mg tablet ondansetron 4 mg disintegrating 4 mg PO TIDP PRN Nausea And 12/07/21 tablet Vomiting #10 tabs pantoprazole 40 mg tablet,delayed 40 mg PO DAILY #15 tabs 12/07/21 release Allergies Allergy/AdvReac Type Severity Reaction Status Date / Time BEE VENOM Allergy Unknown Uncoded 03/08/21 11:23 [facility] Social History Smoking Status: Current every day smoker alcohol intake: current substance use type: marijuana (Daily) current occupational status: unemployed and disabled Travel in the last 8 weeks: None household members: significant other and children ROS Obtained: Yes All systems reviewed & no additional complaints except as documented Physical Exam General General appearance: alert and in distress Head Head exam: atraumatic and normocephalic Eye Eye exam: Present PERRL and EOMI ENT ENT exam: Present mucou
[2022-03-10 12:07] LABS: POC Glucose,Bedside 125 (70-110)
[2022-03-10 12:17] VITALS: BMI 26.4
--- NOTE | 2022-03-10 12:23 | PC.NURSE ---
Obtained covid swab asked if pt could urinate pt stated she could not
[2022-03-10 12:26] LABS: Basophils # 0.1 K/mm3 (0-0.2); Basophils % 0.7 % (0.1-2.0); Eosinophils # 0.1 K/mm3 (0.0-0.4); Hematocrit 39.1 % (37.0-47.0); Hemoglobin 12.2 g/dL (12.2-16.2); Lymphocytes % 43.2 % (10-50); Mean Corpuscular HGB Conc 31.2 g/dL (31.8-35.4); Mean Corpuscular Hemoglobin 28.9 pg (27.0-31.2); Mean Corpuscular Volume 92.8 fl (81-99); Mean Platelet Volume 6.9 fl (7.4-10.4); Monocytes # 0.6 K/mm3 (0.1-1.0); Monocytes % 8.5 % (1.7-9.3); Neutrophils # 3.2 K/mm3 (1.8-7.8); Neutrophils % 46.6 % (37.0-80.0); Platelet Count 185 K/mm3 (142-424); Red Blood Count 4.21 M/mm3 (4.20-5.40); White Blood Count 6.9 K/mm3 (4.8-10.8)
[2022-03-10 12:27] LABS: Coronavirus 19, PCR Not Detected (NotDetected); Influenza A, PCR Not Detected (NotDetected); Influenza B, PCR Not Detected (NotDetected)
[2022-03-10 12:31] LABS: Chloride 104 mmol/L (98-107)
[2022-03-10 12:32] LABS: Potassium 3.2 mmoL/L (3.5-5.1); Sodium 139 mmol/L (136-145)
[2022-03-10 12:34] LABS: Alanine Aminotransferase 23 U/L (12-78); Alkaline Phosphatase 142 U/L (38-126); Anion Gap 18.2 mEq/L (5-15); Aspartate Amino Transferase 49 U/L (14-36); Bilirubin,Total 0.6 mg/dl (0.2-1.3); Blood Urea Nitrogen 7 mg/dl (7-17); Carbon Dioxide 20 mmol/L (22.0-30.0); Creatinine Clearance Estimated 112 mL/min (50-200); Estimated Glomerular Filt Rate 95 ml/min (>60); GFR (African American) 115 ML/MIN (>60); Lipase 118 U/L (23-300)
[2022-03-10 12:35] LABS: Albumin Level 4.7 g/dl (3.5-5.0); Albumin/Globulin Ratio 1.6 (1.1-1.8); Calcium 8.3 mg/dl (8.4-10.2); Glucose 129 mg/dl (74-100); Total Protein,Serum 7.7 g/dl (6.3-8.2)
[2022-03-10 12:35] LABS: VBG Base Excess -3.8 mmol/L (-2.4-2.3); VBG HCO3 20.3 mmol/L (23-30); VBG Oxygen Saturation 99.5 % (50-70); VBG PCO2 30.4 mmol/L (35-51); VBG PH 7.44 mmol/L (7.31-7.41); VBG PO2 223.2 mmol/L (28-40); VBG Total CO2 21.2 mmol/L (23-27)
[2022-03-10 12:36] LABS: HCG Qualitative, Serum Negative (Negative)
--- NOTE | 2022-03-10 12:47 | PC.NURSE ---
pt to CT via wheelchair
--- NOTE | 2022-03-10 12:56 | PC.NURSE ---
ARGENTINA DUGGAN notified of critical lactic acid result per magdalene,pm ARGENTINA DUGGAN gave me verbal order for 2nd L of IVF.
--- NOTE | 2022-03-10 12:58 | PC.NURSE ---
pt back from Rad
--- NOTE | 2022-03-10 13:03 | PC.NURSE ---
pt was asked if she could urinate pt said she could not
[2022-03-10 13:18] LABS: Microscopic, Urine URINE MICROSCOPIC (MICROSCOPIC)
[2022-03-10 13:23] LABS: Appearance,Urine CLEAR (Clear); Bilirubin,Urine Negative (Negative); Blood, Urine Negative (Negative); Color,Urine YELLOW (Yellow); Glucose,Urine (UA) Negative (Negative); Ketones,Urine Negative (Negative); Leukocyte Esterase,Urine Negative (Negative); Nitrate,Urine POSITIVE (Negative); PH,Urine 6.5 (5.0-8.5); Protein,Urine Negative (Negative); Urobilinogen,Urine 0.2 EU/dl (0.2)
--- NOTE | 2022-03-10 13:23 | ECG_ITS ---
APPROVED REPORT Exam: Resting ECG HR:74 bpm ECG Measurements Heart Rate 74 AXES UT 145 P 55 QRSd 86 QRS 40 QT 398 T 30 QTc 425 Conclusion SINUS RHYTHM WITH MARKED SINUS ARRHYTHMIA POSSIBLE RIGHT VENTRICULAR CONDUCTION DELAY [RSR (QR) IN V1/V2] BORDERLINE ECG UNCONFIRMED REPORT Electronically signed by : David Petersen MD 03/11/2022 17:40:10
[2022-03-10 13:24] LABS: Ammonia < 9 umol/L (9-30)
[2022-03-10 13:37] LABS: Bacteria,Urine Trace /lpf
--- NOTE | 2022-03-10 13:37 | PC.NURSE ---
verbal orders given by
--- NOTE | 2022-03-10 13:44 | PC.NURSE ---
spoke with pharmacy who states LR and phenergan are compatible to run together
--- NOTE | 2022-03-10 14:35 | PC.NURSE ---
ARGENTINA DUGGAN speaking with Dr. Valverde (hospitalist)
--- NOTE | 2022-03-10 14:39 | PC.NURSE ---
notified care management of admission, spoke with aleksey
[2022-03-10 15:21] VITALS: BP 134/74; PULSE 104; RESP 18; O2SAT 96
--- NOTE | 2022-03-10 15:28 | PC.NURSE ---
Called report to Alvina.
[2022-03-10 16:00] VITALS: BP 110/83; PULSE 52; RESP 20; TEMP 37.1; O2SAT 100
[2022-03-10 16:30] VITALS: BP 131/79; PULSE 110; RESP 20; TEMP 36.7; O2SAT 98
--- NOTE | 2022-03-10 16:30 | PC.NURSE ---
patient has arrived from ED by wheelchair
[2022-03-10 16:35] LABS: Reflex Lactic Add Lactic Reflex
--- NOTE | 2022-03-10 17:16 | EXP.HP ---
History of Present Illness *Admission Date: 03/10/22 *Reason for visit:: Nause and emesis *History of present illness: Ms. Earl is a 36-year-old female with past medical history of hepatitis C, alcohol dependence, regular marijuana use who presented to the ER for evaluation of intractable nausea and vomiting. Has been having diffuse abdominal pain, diarrhea, vomiting for the past 24 to 48 hours. On initial work-up, patient found to have mild lab abnormalities including hypokalemia, mild transaminitis. She is been hemodynamically stable with mild tachycardia. Initiated on IV fluids and treated with IV antiemetics. Did not respond unfortunately and has continued to have consistent retching while in the ER. She denies shortness of breath, headache, confusion, easy bruising or bleeding. Describes diffuse abdominal pain. Occasional scant blood in vomit. Denies any dysuria or flank pain. CT of abdomen showed diffuse colitis with vaginal cuff edema. Also noted to have lymphadenopathy in her mesentery. Medicine consulted for admission due to intractable nausea and vomiting. Further history after arriving to the floor, patient admits to drinking 3-5 shots of alcohol a day, last drink yesterday. Has never had significant withdrawals from alcohol. She also admits to smoking marijuana regularly. No known sick contacts. [facility] Medical History Hypertension Surgical History History of cholecystectomy Social History Smoking Status: Never smoker alcohol intake: current substance use type: marijuana (Daily) current occupational status: unemployed and disabled Travel in the last 8 weeks: None household members: significant other and children Review of Systems Review of Systems Review of systems (narrative): Complete review of systems performed, pertinent positives and negatives as per HPI Meds Home Medications and Allergies Home Medications Medication Instructions Recorded Confirmed Type folic acid 1 mg tablet 1 mg PO DAILY Supplement 07/07/21 03/10/22 History furosemide 40 mg tablet 40 mg PO DAILY Edema 07/07/21 03/10/22 History guaifenesin 600 mg tablet, 600 mg PO BID Cough/cold 07/07/21 03/10/22 History extended release 12 hr spironolactone 50 mg tablet 50 mg PO DAILY Edema 07/07/21 03/10/22 History propranolol 10 mg tablet 10 mg PO BID heart rate 07/08/21 03/10/22 History baclofen 10 mg tablet 10 mg PO BID muscle spasms 03/10/22 03/10/22 History cholecalciferol (vitamin D3) 25 1,000 unit PO DAILY Supplement 03/10/22 03/10/22 History mcg (1,000 unit) tablet hydroxyzine HCl 25 mg tablet 25 mg PO TID PRN Anxiety 03/10/22 03/10/22 History pantoprazole 40 mg tablet,delayed 40 mg PO DAILY acid reflux 03/10/22 03/10/22 History release potassium chloride 10 mEq 10 meq PO MOWEFR potassium 03/10/22 03/10/22 History tablet,extended release replacement thiamine mononitrate (vit B1) 100 100 mg PO DAILY Supplement 03/10/22 03/10/22 History mg tablet New Prescriptions to Start Prescriptions: Allergies Allergy/AdvReac Type Severity Reaction Status Date / Time amoxicillin Allergy Verified 03/10/22 15:27 latex Allergy Verified 03/10/22 15:27 BEE VENOM Allergy Unknown Uncoded 03/08/21 11:23 Exam Data for Last 24 hours Vital signs and Labs for Last 24 Hours: Temp Pulse Resp BP Pulse Ox 98.1 F 110 H 20 131/79 96 03/10/22 16:30 03/10/22 16:30 03/10/22 16:30 03/10/22 16:30 03/10/22 15:21 Laboratory Results - last 24 hr 03/10/22 11:59: VBG pH 7.44 H, VBG pCO2 30.4 L, VBG pO2 223.2 H, VBG HCO3 20.3 L, VBG Total CO2 21.2 L, VBG O2 Saturation 99.5 H, VBG Base Excess -3.8 L 03/10/22 12:00: POC Glucose 125 H 03/10/22 12:12: WBC 6.9, RBC 4.21, Hgb 12.2, Hct 39.1, MCV 92.8, MCH 28.9, MCHC 31.2 L, RDW 17.0, Plt Count 185, MPV 6.9 L, N
[2022-03-10 18:28] LABS: Alanine Aminotransferase 27 U/L (12-78); Albumin Level 4.1 g/dl (3.5-5.0); Albumin/Globulin Ratio 1.5 (1.1-1.8); Alkaline Phosphatase 125 U/L (38-126); Anion Gap 21.7 mEq/L (5-15); Aspartate Amino Transferase 43 U/L (14-36); Bilirubin,Total 0.9 mg/dl (0.2-1.3); Blood Urea Nitrogen 5 mg/dl (7-17); Calcium 8.2 mg/dl (8.4-10.2); Carbon Dioxide 20 mmol/L (22.0-30.0); Chloride 101 mmol/L (98-107); Creatinine Clearance Estimated 131 mL/min (50-200); Estimated Glomerular Filt Rate 114 ml/min (>60); GFR (African American) 138 ML/MIN (>60); Globulin 2.8 g/dL (1.3-3.2); Glucose 135 mg/dl (74-100); Magnesium 1.3 mg/dl (1.6-2.3); Phosphorous 3.2 mg/dl (2.5-4.5); Potassium 3.7 mmoL/L (3.5-5.1); Sodium 139 mmol/L (136-145); Total Protein,Serum 6.9 g/dl (6.3-8.2)
[2022-03-10 18:29] LABS: Activated Partial Thrombo Time 26.2 seconds (22.8-30.6)
[2022-03-10 18:30] LABS: Lactic Acid Follow Up (RFLX 1) 3.3 mmol/L (0.7-2.1)
[2022-03-10 18:32] LABS: Basophils # 0.1 K/mm3 (0-0.2); Hematocrit 34.5 % (37.0-47.0); Hemoglobin 11.4 g/dL (12.2-16.2); Lymphocytes # 1.2 K/mm3 (0.7-4.5); Lymphocytes % 24.3 % (10-50); Mean Corpuscular Hemoglobin 30.8 pg (27.0-31.2); Mean Corpuscular Volume 93.5 fl (81-99); Mean Platelet Volume 7.6 fl (7.4-10.4); Monocytes # 0.2 K/mm3 (0.1-1.0); Monocytes % 4.6 % (1.7-9.3); Neutrophils # 3.5 K/mm3 (1.8-7.8); Neutrophils % 70.1 % (37.0-80.0); Platelet Count 131 K/mm3 (142-424); Red Blood Count 3.69 M/mm3 (4.20-5.40)
[2022-03-10 18:33] LABS: Adenovirus F 40/41, stool Not Detected (NotDetected); Astrovirus Not Detected (NotDetected); Campylobacter Not Detected (NotDetected); Clostridium Difficile A/B, PCR Not Detected (NotDetected); Cryptosporidium Not Detected (NotDetected); Cyclospora Cayetanesis Not Detected (NotDetected); Entamoeba histolytica Not Detected (NotDetected); Enteroaggregative E coli Not Detected (NotDetected); Enteropathogenic E coli Not Detected (NotDetected); Enterotoxigenic E coli Not Detected (NotDetected); Giardia lamblia Not Detected (NotDetected); Norovirus Not Detected (NotDetected); Plesimonas Shigalloides, PCR Not Detected (NotDetected); Rotavirus A Not Detected (NotDetected); Salmonella, PCR Not Detected (NotDetected); Sapovirus Not Detected (NotDetected); Shiga-like toxin E coli Not Detected (NotDetected); Shigella Enterovasive E coli Not Detected (NotDetected); Vibrio Cholerae Not Detected (NotDetected); Vibrio, PCR Not Detected (NotDetected); Yersinia Entercolitica, PCR Not Detected (NotDetected)
[2022-03-10 18:38] LABS: Ethyl Alcohol < 10 mg/dl (0-10)
[2022-03-10 20:00] VITALS: BP 111/71; PULSE 65; RESP 20; TEMP 37.1; O2SAT 97
[2022-03-10 20:13] LABS: Reflex Lactic (2 hrs) Add Lactic Reflex
[2022-03-10 21:00] LABS: Lactic Acid Follow up (RFLX 2) 2.7 mmol/L (0.7-2.1)
[2022-03-11] VITALS: BP 92/58; PULSE 63; RESP 20; TEMP 37.3; O2SAT 99
[2022-03-11 04:00] VITALS: BP 100/64; PULSE 79; RESP 18; TEMP 37.2; O2SAT 98
--- NOTE | 2022-03-11 05:31 | PC.NURSE ---
pt a&ox4. ambulates to and from bathroom independently. c/o nausea and vomiting X2, medicated per mar with favorable results. pt has had diarrhea, immodium given per mar. CB in reach.
[2022-03-11 08:00] VITALS: BP 127/69; PULSE 59; RESP 18; TEMP 37.1; O2SAT 97
[2022-03-11 08:54] LABS: Basophils % 0.9 % (0.1-2.0); Hematocrit 32.1 % (37.0-47.0); Hemoglobin 10.5 g/dL (12.2-16.2); Lymphocytes # 2.2 K/mm3 (0.7-4.5); Lymphocytes % 50.2 % (10-50); Mean Corpuscular HGB Conc 32.8 g/dL (31.8-35.4); Mean Corpuscular Hemoglobin 30.6 pg (27.0-31.2); Mean Corpuscular Volume 93.2 fl (81-99); Mean Platelet Volume 7.9 fl (7.4-10.4); Monocytes # 0.4 K/mm3 (0.1-1.0); Monocytes % 8.5 % (1.7-9.3); Neutrophils # 1.8 K/mm3 (1.8-7.8); Neutrophils % 39.4 % (37.0-80.0); Platelet Count 111 K/mm3 (142-424); Red Blood Count 3.44 M/mm3 (4.20-5.40); White Blood Count 4.5 K/mm3 (4.8-10.8)
[2022-03-11 08:59] LABS: MANUAL DIFFERENTIAL MANUAL DIFFERENTIAL (MANUAL DIFF)
[2022-03-11 09:10] LABS: Chloride 104 mmol/L (98-107); Potassium 3.6 mmoL/L (3.5-5.1); Sodium 135 mmol/L (136-145)
[2022-03-11 09:13] LABS: Alanine Aminotransferase 23 U/L (12-78); Albumin Level 3.5 g/dl (3.5-5.0); Albumin/Globulin Ratio 1.3 (1.1-1.8); Alkaline Phosphatase 71 U/L (38-126); Anion Gap 10.6 mEq/L (5-15); Aspartate Amino Transferase 48 U/L (14-36); Bilirubin,Total 1.6 mg/dl (0.2-1.3); Blood Urea Nitrogen 3 mg/dl (7-17); Calcium 7.9 mg/dl (8.4-10.2); Carbon Dioxide 24 mmol/L (22.0-30.0); Creatinine Clearance Estimated 112 mL/min (50-200); Estimated Glomerular Filt Rate 95 ml/min (>60); GFR (African American) 115 ML/MIN (>60); Globulin 2.7 g/dL (1.3-3.2); Glucose 113 mg/dl (74-100); Magnesium 1.6 mg/dl (1.6-2.3); Total Protein,Serum 6.2 g/dl (6.3-8.2)
--- NOTE | 2022-03-11 11:41 | EXP.DC.SUM ---
General Admission date:: 03/10/22 Discharge date: 03/11/22 HPI HPI HPI: Ms. Earl is a 36-year-old female with past medical history of hepatitis C, alcohol dependence, regular marijuana use who presented to the ER for evaluation of intractable nausea and vomiting. Has been having diffuse abdominal pain, diarrhea, vomiting for the past 24 to 48 hours. On initial work-up, patient found to have mild lab abnormalities including hypokalemia, mild transaminitis. She is been hemodynamically stable with mild tachycardia. Initiated on IV fluids and treated with IV antiemetics. Did not respond unfortunately and has continued to have consistent retching while in the ER. She denies shortness of breath, headache, confusion, easy bruising or bleeding. Describes diffuse abdominal pain. Occasional scant blood in vomit. Denies any dysuria or flank pain. CT of abdomen showed diffuse colitis with vaginal cuff edema. Also noted to have lymphadenopathy in her mesentery. Medicine consulted for admission due to intractable nausea and vomiting. Further history after arriving to the floor, patient admits to drinking 3-5 shots of alcohol a day, last drink yesterday. Has never had significant withdrawals from alcohol. She also admits to smoking marijuana regularly. No known sick contacts. Hospital Course Hospital Course Hospital Course: Ms. Earl is a 36-year-old female who presented with intractable nausea and vomiting.? Had been having diarrhea and vomiting for almost 2 days prior to admission. Admitted to medicine for management of her intractable nausea and vomiting. Overnight has had resolution of her vomiting. Responded to Compazine. Able to tolerate p.o. fluids and Jell-O this morning. Remains afebrile and hemodynamically stable. Work-up for etiology showed no pathogens on her diarrhea panel. Alcohol level was negative, had no signs of alcohol withdrawal. At this time I do not believe cannabis hyperemesis syndrome is the etiology as warm showers/baths do not help her nausea and actually make it worse per her report. Repeat labs on day of discharge have normalized Of note, history of hepatitis C, at this time I believe this is a chronic issue and not acutely related to her current condition. Recommend addressing in the outpatient setting. Review of systems performed on day of discharge. Complains of sore throat but denies any further nausea since the middle of the night. Her diarrhea is slowing. Denies any fever or chills. No headache or chest pain. No SOA. As her nausea and vomiting has resolved, she is tolerating oral fluids and Jell-O at lunch, she is meeting criteria for discharge home. Have sent 2 weeks worth of sucralfate given her irritation and sore throat and history of gastritis along with a few days of oral Compazine for nausea as needed and this is the only medication that has helped her nausea subside. Encouraged close follow-up with her PCP Exam Data for Last 24 hours Vital signs and Labs for Last 24 Hours: Temp Pulse Resp BP Pulse Ox 98.8 F 59 L 18 127/69 97 03/11/22 08:00 03/11/22 08:00 03/11/22 08:00 03/11/22 08:00 03/11/22 08:00 Laboratory Results - last 24 hr 03/10/22 11:59: VBG pH 7.44 H, VBG pCO2 30.4 L, VBG pO2 223.2 H, VBG HCO3 20.3 L, VBG Total CO2 21.2 L, VBG O2 Saturation 99.5 H, VBG Base Excess -3.8 L 03/10/22 12:00: POC Glucose 125 H 03/10/22 12:12: WBC 6.9, RBC 4.21, Hgb 12.2, Hct 39.1, MCV 92.8, MCH 28.9, MCHC 31.2 L, RDW 17.0, Plt Count 185, MPV 6.9 L, Neut % (Auto) 46.6, Lymph % (Auto) 43.2, [place] % (Auto) 8.5, Eos % (Auto) 1.0, Baso % (Auto) 0.7, Neut # (Auto) 3.2, Lymph # (Auto) 3.0, [place] # (Auto) 0.6, Eos # (Auto) 0.1, Baso # (Auto) 0.1 03/10/22 12:12: Sodium 139, Potassium 3.2 L, Chloride 104, Carbon Dioxide 20 L, Anion Gap 18.2 H, BUN 7, Creatinine 0.70, Estimated Creat Clear 112, Estimated GFR 95, Est GFR ( Amer) 115, Glucose 129 H, Calcium 8.3 L, Total Bilirubin 0.6, AST 49 H, ALT
[2022-03-11 12:05] LABS: Lymphocytes % 55 % (10-50); Monocytes % 9 % (2-9); Neutrophils % 36 % (42-76); Total Cells Counted 100
[2022-03-11 12:06] LABS: Platelet Estimate Slight Decrease; RBC Morphology Normal
--- NOTE | 2022-03-16 14:06 | CARE MANAGER ---
Attempted to contact patient related to hospital discharge. No answer.
== END 2022-03-11 14:35 | disposition home or self-care (01) ==
LOC: ER 14:39 → 2ND 15:32
PROVIDERS: Admitting Provider Internal Medicine Adolescent Medicine; Emergency Provider Emergency Medicine; PCP Family Medicine; Visit Provider Internal Medicine Adolescent Medicine
DX: E86.0 Dehydration (principal); E87.6 Hypokalemia; B19.20 Unspecified viral hepatitis C without hepatic coma; R11.2 Nausea with vomiting, unspecified; R10.11 Right upper quadrant pain; R74.8 Abnormal levels of other serum enzymes; F12.90 Cannabis use, unspecified, uncomplicated; F17.210 Nicotine dependence, cigarettes, uncomplicated
CPT/HCPCS: 36415; 74177; 80053; 81001; 82140; 82803; 82962; 83605; 83690; 83735; 84100; 84703; 85007; 85025; 85730; 87507; 93005; 99285; C9803; G0378; J2405; Q9967; U0003; U0005

== ENCOUNTER 2022-05-10 08:12 | Emergency (ER) | payer MEDICAID, SELFPAY ==
[2022-05-10 08:43] VITALS: BP 127/72; PULSE 90; RESP 16; TEMP 36.7; O2SAT 97; BMI 29.2
--- NOTE | 2022-05-10 09:21 | EXP.UTC ---
Discharge Plan Disposition Patient Disposition: Home, Self-Care Condition: Good Prescriptions Prescriptions: New methylprednisolone [Medrol (Sourav)] 4 mg tablets,dose pack See Rx Instructions .Route .COMPLEX 6 Days Qty: 21 0RF Rx Instructions: taper pack; No Action furosemide 40 MG tablet 40 mg PO DAILY folic acid 1 MG tablet 1 mg PO DAILY spironolactone 50 MG tablet 50 mg PO DAILY guaifenesin 600 MG tablet extended release 12hr 600 mg PO BID propranolol 10 MG tablet 10 mg PO BID baclofen 10 mg tablet 10 mg PO BID hydroxyzine HCl 25 mg tablet 25 mg PO TID PRN (Reason: Anxiety) cholecalciferol (vitamin D3) 25 mcg (1,000 unit) tablet 1,000 unit PO DAILY Label Comments: TAKE 1 TABLET BY MOUTH ONCE DAILY pantoprazole 40 MG tablet,delayed release (DR/EC) 40 mg PO DAILY thiamine mononitrate (vit B1) 100 MG tablet 100 mg PO DAILY potassium chloride 10 MEQ tablet extended release 10 meq PO MOWEFR sucralfate 1 gram tablet 1 g PO TID 14 Days Qty: 42 0RF prochlorperazine maleate [Compazine] 5 mg tablet 5 mg PO TID PRN (Reason: nausea and vomiting) Qty: 10 0RF Referrals Follow up/Referrals: Sander Gutiérrez JR, MD [Primary Care Provider] - See instructions Activity Restrictions/Add. Instructions Additional Instructions/Restrictions: *Ibuprofen paula 6 hours with meal as needed for pain/inflammation *Remember you had a Toradol shot in the clinic today, which is similar to Motrin do not take anymore for the next 8 hours *Not additional anti-inflammatory like motrin, aleve, advil with the above amount of ibuprofen. You can still take Tylenol every 4 hours as needed if you need something else for pain *Ice 20 minutes every 2 hours for the first 48 hours after the initial injury followed by moist heat every 20 minutes 3-4 times a day to affected area Start oral steriod tomorrow *Keep this area active, no movement leads to more stiffness, However take it easy and avoid heavy lifting pushing or pulling *Follow up with you family doctor if no improvement for further treatment Clinical Impressions Clinical Impression: Low back pain Stand Alone Forms Stand Alone Forms: Work/School Release Instructions Patient Instructions: Low Back Pain Discharge ED Provider: Kristie Harrison [facility] HPI General Stated complaint: No accident, lower LT back pain Mode of Arrival: Ambulatory Source of Information: Patient Limitations: No Limitations Time Seen by Provider: 05/10/22 09:21 Description of Symptoms (Recalled from Triage Doc. by RN): LEFT HIP AND BACK PAIN SINCE SUNDAY HEENT Symptoms (Recalled from RN notes): No Resp Symptoms (Recalled from RN notes): No Skin Symptoms (Recalled from RN notes): No MS Symptoms (Recalled from RN notes): Yes Functional Status (Recalled from RN notes): WNL History of Present Illness Provider Complaint: Patient states that she is having pain in her left lower back/buttock pain State that it hurts to sit or lay on that side and worse with walking Denies known injury Denies loss of control of bowel or bladder Related Data Home Medications Medication Instructions Recorded Confirmed folic acid 1 mg tablet 1 mg PO DAILY Supplement 07/07/21 03/10/22 furosemide 40 mg tablet 40 mg PO DAILY Edema 07/07/21 03/10/22 guaifenesin 600 mg tablet, 600 mg PO BID Cough/cold 07/07/21 03/10/22 extended release 12 hr spironolactone 50 mg tablet 50 mg PO DAILY Edema 07/07/21 03/10/22 propranolol 10 mg tablet 10 mg PO BID heart rate 07/08/21 03/10/22 baclofen 10 mg tablet 10 mg PO BID muscle spasms 03/10/22 03/10/22 cholecalciferol (vitamin D3) 25 1,000 unit PO DAILY Supplement 03/10/22 03/10/22 mcg (1,000 unit) tablet hydroxyzine HCl 25 mg tablet 25 mg PO TID PRN Anxiety 03/10/22 03/10/22 pantoprazole 40 mg tablet,delayed 40 mg PO DAILY acid reflux 03/10/22 03/10/22 release potassium chloride 10 mEq 10 meq PO MOWEFR
[2022-05-10 09:51] VITALS: BP 127/72; PULSE 90; RESP 17; TEMP 36.7; O2SAT 97
== END 2022-05-10 09:53 | disposition home or self-care (01) ==
PROVIDERS: Emergency Provider Nurse Practitioner; PCP Family Medicine
DX: M54.50 Low back pain, unspecified (principal)
CPT/HCPCS: 96372; 99212; G0463

== ENCOUNTER 2022-07-03 09:51 | Emergency (ER) | payer MEDICAID, SELFPAY ==
[2022-07-03 10:05] VITALS: BP 120/55; PULSE 58; RESP 17; TEMP 36.9; O2SAT 100; BMI 30.9
--- NOTE | 2022-07-03 10:25 | EXP.UTC ---
Discharge Plan Disposition Patient Disposition: Home, Self-Care Condition: Good Prescriptions Prescriptions: No Action furosemide 40 MG tablet 40 mg PO DAILY folic acid 1 MG tablet 1 mg PO DAILY spironolactone 50 MG tablet 50 mg PO DAILY guaifenesin 600 MG tablet extended release 12hr 600 mg PO BID propranolol 10 MG tablet 10 mg PO BID baclofen 10 mg tablet 10 mg PO BID hydroxyzine HCl 25 mg tablet 25 mg PO TID PRN (Reason: Anxiety) cholecalciferol (vitamin D3) 25 mcg (1,000 unit) tablet 1,000 unit PO DAILY Label Comments: TAKE 1 TABLET BY MOUTH ONCE DAILY pantoprazole 40 MG tablet,delayed release (DR/EC) 40 mg PO DAILY thiamine mononitrate (vit B1) 100 MG tablet 100 mg PO DAILY potassium chloride 10 MEQ tablet extended release 10 meq PO MOWEFR sucralfate 1 gram tablet 1 g PO TID 14 Days Qty: 42 0RF prochlorperazine maleate [Compazine] 5 mg tablet 5 mg PO TID PRN (Reason: nausea and vomiting) Qty: 10 0RF Referrals Follow up/Referrals: Sander Gutiérrez JR, MD [Primary Care Provider] - See instructions Activity Restrictions/Add. Instructions Additional Instructions/Restrictions: Continue to Take Baclofen as prescribed to help with muscle spasms, may try over the counter muscle rubs and lidocaine patches to see if that will help Follow up with your Family Doctor if no improvement or any worsening of symptoms Return if needed Straight to ER if any life threatening symptoms Warm soaks and heating pad may help with pain do not sleep with heating pad in place Clinical Impressions Clinical Impression: Muscle spasm Sciatica Qualifiers: Laterality: left Qualified Code(s): M54.32 - Sciatica, left side Instructions Patient Instructions: DI for Sciatica, DI for Muscle Spasm Discharge ED Provider: Kristie Harrison [place] HPI General Stated complaint: pain in Rt should blade, Lt groin area Mode of Arrival: Ambulatory Source of Information: Patient Limitations: No Limitations Time Seen by Provider: 07/03/22 10:25 Description of Symptoms (Recalled from Triage Doc. by RN): PATIENT C/O RIGHT SHOULDER BLADE PAIN X 2 DAYS AND LEFT GROIN PAIN SINCE YESTERDAY. NO KNOWN INJURY HEENT Symptoms (Recalled from RN notes): No Resp Symptoms (Recalled from RN notes): No Skin Symptoms (Recalled from RN notes): No MS Symptoms (Recalled from RN notes): Yes Functional Status (Recalled from RN notes): WNL History of Present Illness Provider Complaint: Patient states that she has a history of sciatica and feels like she may be having a flare up States that she has pain in her left groin area that is worse when she lifts her leg or bends or lays on that side like she has had before with sciatica States that also she has been doing alot of cleaning at home and thinks she pulled something in her right shoulder blade area States that it feels tight and hurts when she raises her arm or moves it certain ways Denies loss of control of bowel or bladder and denies known injury Related Data Home Medications Medication Instructions Recorded Confirmed folic acid 1 mg tablet 1 mg PO DAILY Supplement 07/07/21 03/10/22 furosemide 40 mg tablet 40 mg PO DAILY Edema 07/07/21 03/10/22 guaifenesin 600 mg tablet, 600 mg PO BID Cough/cold 07/07/21 03/10/22 extended release 12 hr spironolactone 50 mg tablet 50 mg PO DAILY Edema 07/07/21 03/10/22 propranolol 10 mg tablet 10 mg PO BID heart rate 07/08/21 03/10/22 baclofen 10 mg tablet 10 mg PO BID muscle spasms 03/10/22 03/10/22 cholecalciferol (vitamin D3) 25 1,000 unit PO DAILY Supplement 03/10/22 03/10/22 mcg (1,000 unit) tablet hydroxyzine HCl 25 mg tablet 25 mg PO TID PRN Anxiety 03/10/22 03/10/22 pantoprazole 40 mg tablet,delayed 40 mg PO DAILY acid reflux 03/10/22 03/10/22 release potassium chloride 10 mEq 10 meq PO MOWEFR potassium 03/10/22 03/10/22 tablet,extended release replacement thiamine mononitrate (vi
[2022-07-03 10:58] VITALS: BP 120/55; PULSE 58; RESP 17; TEMP 36.9; O2SAT 100
== END 2022-07-03 11:01 | disposition home or self-care (01) ==
PROVIDERS: Emergency Provider Nurse Practitioner; PCP Family Medicine
DX: M62.838 Other muscle spasm (principal); M54.32 Sciatica, left side
CPT/HCPCS: 96372; 99212; 99213; G0463

== ENCOUNTER 2023-03-21 16:10 | Emergency (ER) | payer MEDICAID, SELFPAY ==
[2023-03-21 16:10] VITALS: BP 130/77; PULSE 93; RESP 18; TEMP 36.9; O2SAT 98; BMI 26.3
--- OUTSIDE RECORDS SUMMARY | 2023-03-21 16:13 | XMS_ITS | Summary of Care ---
Author Name Unknown Organization [facility] Address [address] [place] [address]- Encounter 05/27/21 - 06/02/[address] [address]- [place] Discharge Disposition: Discharged to Home or Self Care Attending Physician: Justin Almanza MD Admitting Physician: Justin Almanza MD Allergies, Adverse Reactions, Alerts Substance Reaction Severity Status No Known Allergies Active Medications Aldactone 25 mg oral tablet 50 mg = 2 tab, Tab, Oral, Daily, 60 tab, 0 Refill(s), Print Requisition Start Date: 06/02/21 Status: Ordered baclofen 10 mg oral tablet 5 mg = 0.5 tab, Tab, Oral, TID, 45 tab, 0 Refill(s), Print Requisition Start Date: 06/02/21 Status: Ordered cefdinir 300 mg oral capsule 300 mg, 1 cap, Cap, Oral, q12hr, 2 cap, 0 Refill(s), Print Requisition Start Date: 06/02/21 Status: Ordered cholecalciferol 25 mcg (1000 intl units) oral tablet 25 mcg = 1 tab, Tab, Oral, Daily, 30 tab, 0 Refill(s), Print Requisition Start Date: 06/02/21 Status: Ordered folic acid 1 mg oral tablet 1 mg = 1 tab, Tab, Oral, Daily, 30 tab, 0 Refill(s), Print Requisition Start Date: 06/02/21 Status: Ordered furosemide 40 mg oral tablet 40 mg = 1 tab, Tab, Oral, Daily, 30 tab, 0 Refill(s), Print Requisition Start Date: 06/02/21 Status: Ordered ibuprofen 600 mg oral tablet 600 mg = 1 tab, Tab, Oral, q4hr PRN, 40 tab, 0 Refill(s), PAIN (Scale 1-10) Start Date: 05/27/21 Status: Ordered MiraLax oral powder for reconstitution 17 gm, Powder-Recon, Oral, Daily PRN, 255 gm, 0 Refill(s), Constipation, Print Requisition Start Date: 06/02/21 Status: Ordered Mucinex 600 mg oral tablet, extended release 600 mg = 1 tab, Tab-ER, Oral, q12hr, 20 tab, 0 Refill(s), Print Requisition Start Date: 06/02/21 Status: Ordered pantoprazole 40 mg oral delayed release tablet 40 mg = 1 tab, Tab-DR, Oral, BID, 60 tab, 0 Refill(s), Print Requisition Start Date: 06/02/21 Status: Ordered predniSONE 10 mg oral tablet See Instructions, 54 tab, 0 Refill(s), Take 4 tabs daily for 2 days then 3 tabs daily for 7 days then 2 tabs daily for 7 days then 1 tab daily for 7 days then one half tab for 8 days., Print Requ
--- NOTE | 2023-03-21 16:34 | EXP.UTC ---
Discharge Plan Disposition Patient Disposition: Home, Self-Care Condition: Good Prescriptions Prescriptions: New azithromycin [Zithromax Z-Sourav] 250 mg tablet See Rx Instructions .ROUTE .COMPLEX 5 Days Qty: 6 0RF Rx Instructions: For 250 mg dose pack: take 500 mg today (day 1), then 250 mg for 4 days (days 2-5) No Action aripiprazole 2 mg tablet 2 mg PO DAILY Patient Comments: TAKE 1 TABLET BY MOUTH ONCE DAILY lurasidone 20 mg tablet 20 mg PO DAILY Patient Comments: TAKE 1 TABLET BY MOUTH IN THE EVENING WITH FOOD Vraylar 1.5 mg capsule 1.5 mg PO DAILY Patient Comments: TAKE 1 CAPSULE BY MOUTH ONCE DAILY Caplyta 42 mg capsule 42 mg PO DAILY Patient Comments: TAKE 1 CAPSULE BY MOUTH IN THE EVENING furosemide 40 MG tablet 40 mg PO DAILY folic acid 1 MG tablet 1 mg PO DAILY spironolactone 50 MG tablet 50 mg PO DAILY propranolol 10 MG tablet 10 mg PO BID baclofen 10 mg tablet 10 mg PO BID hydroxyzine HCl 25 mg tablet 25 mg PO TID PRN (Reason: Anxiety) cholecalciferol (vitamin D3) 25 mcg (1,000 unit) tablet 1,000 unit PO DAILY Patient Comments: TAKE 1 TABLET BY MOUTH ONCE DAILY pantoprazole 40 MG tablet,delayed release (DR/EC) 40 mg PO DAILY thiamine mononitrate (vit B1) 100 MG tablet 100 mg PO DAILY potassium chloride 10 MEQ tablet extended release 10 meq PO MOWEFR sucralfate 1 gram tablet 1 g PO TID 14 Days Qty: 42 0RF prochlorperazine maleate [Compazine] 5 mg tablet 5 mg PO TID PRN (Reason: nausea and vomiting) Qty: 10 0RF Referrals Follow up/Referrals: Sander Gutiérrez JR, MD [Primary Care Provider] - See instructions Activity Restrictions/Add. Instructions Additional Instructions/Restrictions: *Monitor Temp, Over the counter Motrin or Tylenol as directed/as needed Tylenol every 4 hours and Motrin every 6 hours (as long as your family doctor has told you that you can take it) for fever or pain. and straight to ER if unable to lower temp less than 101.0 after medication given *Warm salt water gargles may help to soothe the throat *Throat Lozenges? *Warm fluids like tea with honey may help to soothe the throat? *Sleep elevated *Humidifier/Vaporizer *Flonase 2 sprays in each nostril daily but be aware that it may take 2-3 days before you notice improvement *Bromfed may cause drowsiness. Know how it effects you (your child) before driving, caring for small child, or sending your child to school. Not other antihistamines/allergy medications while taking bromfed Your throat swab was sent for culture. Those results are typically sent to your primary care. Be sure to follow up in 2-3 days with your family doctor/primary care physician if no improvement so they can review those result and treat if necessary. If you don?t have a primary care doctor, I recommend you get one but in the mean time, you will have to return to a walk in clinic Follow up IMMEDIATELY for new or worsening symptoms or no Noticeable improvement over the next 48-72 hours. 911 for difficulty breathing or swallowing Clinical Impressions Clinical Impression: Otitis media Qualifiers: Otitis media type: unspecified Laterality: left Qualified Code(s): H66.92 - Otitis media, unspecified, left ear Instructions Patient Instructions: Middle Ear Infection, Azithromycin Discharge ED Provider: Kristie Harrison [facility] General Stated complaint: body aches, congestion, bilateral ear pain Mode of Arrival: Ambulatory Source of Information: Patient Limitations: No Limitations Time Seen by Provider: 03/21/23 16:34 Description of Symptoms (Recalled from Triage Doc. by RN): body aches, vomiting, cold chills, no test or smell HEENT Symptoms (Recalled from RN notes): Yes Resp Symptoms (Recalled from RN notes): No Skin Symptoms (Recalled from RN notes): No MS Symptoms (Recal
[2023-03-21 16:54] LABS: UTC Influenza A Antigen Negative (Negative); UTC Influenza B Antigen Negative (Negative)
[2023-03-21 16:54] LABS: UTC Strep Screen (Rapid) Negative (Negative)
[2023-03-21 17:18] VITALS: BP 130/77; PULSE 93; RESP 18; TEMP 36.9; O2SAT 98
== END 2023-03-21 17:18 | disposition home or self-care (01) ==
PROVIDERS: Emergency Provider Nurse Practitioner; PCP Family Medicine
DX: U07.1 COVID-19 (principal); H66.92 Otitis media, unspecified, left ear; I10 Essential (primary) hypertension; F41.9 Anxiety disorder, unspecified; F32.A Depression, unspecified
CPT/HCPCS: 87635; 87804; 87880; 99212; 99214; G0463

== ENCOUNTER 2024-10-08 11:08 | Outpatient (CLI) | payer MEDICAID, SELFPAY | END 2024-10-08 23:59 | disposition home or self-care (01) | LOC: LAB.DROPOF 10-09 11:32 | PROVIDERS: PCP Nurse Practitioner; Visit Provider Nurse Practitioner | DX: N39.0 Urinary tract infection, site not specified (principal) | CPT/HCPCS: 87086 ==